=== PATIENT | male | born 1945 | race Caucasian/White ===

== ENCOUNTER 2018-02-28 10:08 | Emergency (ER) | payer MEDICARE ==
[2018-02-28] MEDS ORDERED: Sodium Chloride 0.9% 1000 ML 2,000 ML ONE (10:24)
[2018-02-28 10:26] VITALS: BP 112/83; O2SAT 96
[2018-02-28] MEDS ORDERED: BABY ASPIRIN 81 MG CHEW PO ONE (10:28)
[2018-02-28] MEDS ORDERED: MORPHINE SULFATE 2 MG INJ ONE (10:28)
[2018-02-28] MEDS ORDERED: BABY ASPIRIN 81 MG CHEW ONE (10:30)
[2018-02-28] MEDS ORDERED: Sodium Chloride 0.9% 1000 ML 1,000 ML IV SCH (10:30)
[2018-02-28] MEDS ORDERED: [UNRECOGNIZED DRUG - OTHER] IV ONE (10:30)
[2018-02-28] MEDS ORDERED: NTG IV ONE (10:30)
[2018-02-28] MEDS ORDERED: Effient 10 MG TABLET ONE (10:30)
[2018-02-28] MEDS ORDERED: Zofran 4 MG/2 ML VIAL ONE (10:40)
[2018-02-28 10:41] VITALS: PULSE 91
--- NOTE | 2018-02-28 10:41 | ERPHSYRPT ---
- History of Present Illness Time Seen by Provider: 02/28/18 10:15 Historian: patient Exam Limitations: clinical condition Physician History: PATIENT WITH A HISTORY OF CORONARY ARTERY DISEASE, HAD PREVIOUS CARDIAC CATH 3 YEARS AGO UNDER THE CARE OF DR MORA AND NOW COMPLAINS OF ACUTE ONSET OF INDIGESTION AND LOWER STERNAL PAIN WHICH RADIATES TO HIS BACK BETWEEN BOTH SHOULDER BLADES AND HAS BEEN CONSTANT OVER THE PAST HOUR. PATIENT COMPLAINS OF SLIGHT DIAPHORESIS BUT DENIES PALPITATIONS OR DYSPNEA. PATIENT RATES HIS PAIN A 8/10. Timing/Duration: today Activities at Onset: none Quality: other (INDIGESTION) Chest Pain Radiation: back Severity of Pain-Max: moderate Severity of Pain-Current: moderate Modifying Factors: Improves With: nothing Associated Symptoms: nausea, heartburn, diaphoresis Prior Chest Pain/Cardiac Workup: cardiac cath Nitro Today/Relief: provided by ED (INTRAVENOUS NITROGLYCERIN AT 3MCG/MIN) Aspirin Treatment Today: 81 mg x 2, provided at home (AND NITROGLYCERIN SUBLINGUAL 4 MG 2 IN THE EMERGENCY ROOM) Allergies/Adverse Reactions: No Known Drug Allergies Allergy (Unverified 02/28/18 10:34) Home Medications: Aspirin 81 gm Chew [Baby Aspirin 81 mg Chew] 81 mg DAILY 02/28/18 [History ] LORazepam [Lorazepam] 1 mg DAILY 02/28/18 [History] - Review of Systems Constitutional: No Fever, No Chills Eyes: No Symptoms Ears, Nose, & Throat: No Symptoms Respiratory: No Cough, No Dyspnea Cardiac: Chest Pain, No Edema, No Syncope Abdominal/Gastrointestinal: No Symptoms, No Abdominal Pain, No Nausea, No Vomiting, No Diarrhea Genitourinary Symptoms: No Symptoms, No Dysuria Musculoskeletal: No Symptoms, No Back Pain, No Neck Pain Skin: No Rash Neurological: No Dizziness, No Focal Weakness, No Sensory Changes Psychological: No Symptoms Endocrine: No Symptoms All Other Systems: Reviewed and Negative - Nursing Vital Signs Nursing Vital Signs: Initial Vital Signs Pulse Rate 91 H 02/28/18 10:09 Respiratory Rate 18 02/28/18 10:09 Blood Pressure 112/83 02/28/18 10:09 O2 Sat by Pulse Oximetry 96 02/28/18 10:09 Pain Scale Pain Intensity 10 - Physical Exam General Appearance: moderate distress, other (MILD DIAPHORESIS) Eye Exam: PERRL/EOMI, eyes nml inspection Ears, Nose, Throat Exam: normal ENT inspection, moist mucous membranes Neck Exam: normal inspection, non-tender, supple, full range of motion Respiratory Exam: normal breath sounds, lungs clear, No respiratory distress Cardiovascular Exam: regular rate/rhythm, normal heart sounds Gastrointestinal/Abdomen Exam: soft, normal bowel sounds, No tenderness, No mass Back Exam: normal inspection, No CVA tenderness, No vertebral tenderness Extremity Exam: normal inspection, normal range of motion Neurologic Exam: alert, oriented x 3, cooperative, normal mood/affect, sensation nml, No motor deficits Skin Exam: normal color, warm, dry SpO2 Interpretation: normal SpO2: 96 Oxygen Delivery: Nasal Cannula - Course EKG Interpreted by Me: RATE, Sinus Rhythm, ST Elev (ANTEROSEPTAL ELEVATION V2-V3 ) Ordered Tests: Active Orders 24 hr Category Date Time Status EKG-ER Only STAT Care 02/28/18 10:28 Active IV Insertion STAT Care 02/28/18 10:28 Active Oxygen-ED Only NASAL CANNULA 2 lpm Care 02/28/18 10:28 Active CBC W DIFF Stat Lab 02/28/18 10:35 Completed CMP Stat Lab 02/28/18 10:35 Received D-DIMER QUANTITATION Stat Lab 02/28/18 10:35 Completed NT PRO BNP Stat Lab 02/28/18 10:35 Received PROTIME WITH INR Stat Lab 02/28/18 10:35 Completed TROPONIN Q3H Lab 02/28/18 10:35 Received TROPONIN Q3H Lab 02/28/18 13:30 Ordered TROPONIN Q3H Lab 02/28/18 16:30 Ordered TROPONIN Q3H Lab 02/28/18 19:30 Ordered TROPONIN Q3H Lab 02/28/18 22:30 Ordered Medication Summary Generic Name Dose Route Start Last Admin Trade Name Freq PRN Reason Stop Dose Admin Sodium Chloride 1,000 mls @ 200 mls/hr 02/28/18 10:30 02/28/18 10:42 Sodium Chloride 0.9% 1000 Ml IV 03/30/18 10:29 200 mls/hr .Q5H KATHI Administration Discontinued Medications Generic Name Dose Route Start Last Admin Trade Name Freq PRN Reason Stop Dose Admin Aspirin 162 mg 02/28/18 10:28 02/28/18 10:41 Baby Aspirin 81 Mg Chew PO 02/28/18 10:29 162 mg STAT ONE Administration Aspirin 162 mg 02/28/18 10:30 Baby Aspirin 81 Mg Chew .ROUTE 02/28/18 10:31 .STK-MED ONE Sodium Chloride Confirm 02/28/18 10:24 Sodium Chloride 0.9% 1000 Ml Administered 02/28/18 10:25 Dose 2,000 mls @ ud .ROUTE .STK-MED ONE Morphine Sulfate Confirm 02/28/18 10:28 Morphine Sulfate 2 Mg Inj Administered 02/28/18 10:29 Dose 2 mg .ROUTE .STK-MED ONE Nitroglycerin/Dextrose 50,000 mcg 02/28/18 10:30 Ntg 0.2mg/Ml In D5w Glass IV 02/28/18 10:31 .STK-MED ONE Ondansetron HCl Confirm 02/28/18 10:40 Zofran 4 Mg/2 Ml Vial Administered 02/28/18 10:41 Dose 4 mg .ROUTE .STK-MED ONE Ondansetron HCl 4 mg 02/28/18 10:43 02/28/18 10:44 Zofran 4 Mg/2 Ml Vial IV 02/28/18 10:44 4 mg STAT ONE Administration Prasugrel 60 mg 02/28/18 10:30 Effient 10 Mg Tablet .ROUTE 02/28/18 10:31 .STK-MED ONE Lab/Rad Data: Laboratory Result Diagrams 02/28/18 10:35 Laboratory Results 02/28/18 02/28/18 Range/Units 10:35 10:35 WBC 11.9 H (4.0-10.5) K/mm3 RBC 5.28 (4.1-5.6) M/mm3 Hgb 17.2 (12.5-18.0) gm/dl Hct 51.8 H (42-50) % MCV 98.1 (78-100) fl MCH 32.6 H (26-32) pg MCHC 33.2 (32-36) g/dl RDW 13.5 (11.5-14.0) % Plt Count 364 (150-450) K/mm3 MPV 9.3 (6-9.5) fl Gran % 60.8 (36.0-66.0) % Eos # (Auto) 0.69 H (0-0.5) Absolute Lymphs (auto) 3.00 (1.0-4.6) Absolute Monos (auto) 0.94 (0.0-1.3) Lymphocytes % 25.2 (24.0-44.0) % Monocytes % 7.9 (0.0-12.0) % Eosinophils % 5.8 H (0.00-5.0) % Basophils % 0.3 (0.0-0.4) % Absolute Granulocytes 7.24 H (1.4-6.9) Basophils # 0.04 (0-0.4) PT 11.2 (8.83-12.87) SECONDS INR 0.96 (0.8-3.0) D-Dimer 862 H* (215-500) ng/mL - Progress Progress: re-examined Progress Note: PATIEN ADMINISTERED BABY ASPIRIN 162MG, SBP 113, BEGAN IV NITROGLYCERIN INFUSION 3MCG/MIN, MORPHINE 2MG IV, EFFIENT 60MG ORALLY 02/28/18 10:44 02/28/18 12:[address].: Other (DISCUSSED WITH DR ALDRICH AT 1020 ACCEPTS TRANSFER TO [facility] INTO [facility], [facility]IA [facility]) - Departure Time of Disposition: 10:40 Departure Disposition: Transfer Clinical Impression: ACUTE ANTEROSEPTAL STEMI Condition: Stable Critical Care Time: Yes Critical Care Time(excluding separately billable procedures): ___ minutes (30) Referrals: MIMI FINN [Primary Care Provider] -
[2018-02-28] MEDS ORDERED: Zofran 4 MG/2 ML VIAL IV ONE (10:43)
[2018-02-28 10:48] LABS: BASOPHIL % 0.3 % (0.0-0.4); Basophil (Absolute #) 0.04 (0-0.4); Eosinophil % 5.8 % (0.00-5.0); Eosinophil (Absolute #) 0.69 (0-0.5); Granulocyte Absolute (ANC) 7.24 (1.4-6.9); Granulocytes % 60.8 % (36.0-66.0); Hematocrit 51.8 % (42-50); Hemoglobin 17.2 gm/dl (12.5-18.0); Lymphocytes % 25.2 % (24.0-44.0); Mean Cell Volume 98.1 fl (78-100); Mean Corpuscular Hemoglobin 32.6 pg (26-32); Mean Corpuscular Hgb Concent. 33.2 g/dl (32-36); Mean Platelet Volume 9.3 fl (6-9.5); Monocyte (Absolute #) 0.94 (0.0-1.3); Monocytes % 7.9 % (0.0-12.0); Platelet Count 364 K/mm3 (150-450); Red Blood Count 5.28 M/mm3 (4.1-5.6); Red Cell Distribution Width 13.5 % (11.5-14.0); White Blood Count 11.9 K/mm3 (4.0-10.5)
[2018-02-28 10:49] LABS: INR 0.96 (0.8-3.0)
[2018-02-28 12:45] LABS: ALBUMIN 4.2 g/dL (3.5-5.0); ALKALINE PHOSPHATASE 140 U/L (38-126); ANION GAP 13.3 MEQ/L (5-15); BLOOD UREA NITROGEN 11 mg/dL (9-20); CHLORIDE 106 mmol/L (98-107); Carbon Dioxide 26 mmol/L (22-30); Glucose 144 mg/dL (74-106); NT PRO BNP 176 pg/mL (0-900); Potassium 4.1 mmol/L (3.5-5.1); SGOT/AST 28 U/L (17-59); SGPT/ALT 14 U/L (0-50); SODIUM 141 mmol/L (137-145); Total Protein 7.2 g/dL (6.3-8.2)
== END 2018-02-28 10:40 | disposition short-term general hospital (02) ==
LOC: ED 10:08
DX: I21.09 ST elevation (STEMI) myocardial infarction involving other coronary artery of anterior wall (principal); Z79.82 Long term (current) use of aspirin; Z79.899 Other long term (current) drug therapy
CPT/HCPCS: 36415; 80053; 83880; 84484; 85025; 85379; 85610; 93005; 96360; 96365; 96374; 96375; 99285; 99291; J2270; J2405; A9270-GY

== ENCOUNTER 2018-03-08 03:53 | Emergency (ER) | payer MEDICARE ==
--- NOTE | 2018-03-08 04:04 | ERPHSYRPT ---
- History of Present Illness Time Seen by Provider: 03/08/18 03:57 Historian: family, EMS Physician History: PATIENT WITH A HISTORY OF ACUTE ANTEROSEPTAL MYOCARDIAL INFARCTION ON DAte 02/28 AT WHICH TIME PATIENT WAS TRANSFERRED TO [facility] FOR EMERGENCY CARDIAC CATHERIZATION. EMS CALLED TO THE PATIENTS HOME WITH COMPLAINS OF CHEST PAIN AND SEVERE DYSPNEA. UPON ARRIVAL OF EMS THE PATIENTDEVELOPED AGONAL BREATH WHICH TIME THE PATIENT WAS INTUBATED. Timing/Duration: today Quality: sharpness Location: substernal Associated Symptoms: shortness of breath (SEVERE DYSPNEa) Prior Chest Pain/Cardiac Workup: cardiac cath, heart attack, recent hospitalization (MYOCARDIAL INFARCTION 02/28/2018) Nitro Today/Relief: no nitro taken today Aspirin Treatment Today: 81 mg x 1, provided at home Allergies/Adverse Reactions: No Known Drug Allergies Allergy (Unverified 02/28/18 10:34) Home Medications: Aspirin 81 gm Chew [Baby Aspirin 81 mg Chew] 81 mg DAILY 02/28/18 [History ] LORazepam [Lorazepam] 1 mg DAILY 02/28/18 [History] Hx Tetanus, Diphtheria Vaccination/Date Given: Yes Hx Influenza Vaccination/Date Given: Yes Hx Pneumococcal Vaccination/Date Given: No - Review of Systems Respiratory: Dyspnea Cardiac: Chest Pain (HISTORY GIVEN PER EMS) - Past Medical History Pertinent Past Medical History: (unknown) Other Medical History: unable to obtain d/t emergent - Past Surgical History Other Surgical History: unable to obtain d/t emergent - Social History Smoking Status: Unknown if ever smoked - Physical Exam General Appearance: other (PATIENT INTUBATED PRIOR TO EMERGENCY ARRIVAL, MANUAL BREATH SOUNDS WITH RALES BILAT,) Eye Exam: PERRL/EOMI Ears, Nose, Throat Exam: normal ENT inspection Neck Exam: JVD (MARKED JVD) Respiratory Exam: crackles/rales (DIFFUSE ) Cardiovascular Exam: regular rate/rhythm, tachycardia Gastrointestinal/Abdomen Exam: soft, normal bowel sounds Back Exam: normal inspection Extremity Exam: pedal edema (1+ PRETIBIAL EDEMA) Neurologic Exam: other (UNRESPONSIVE ) SpO2: 97 Oxygen Delivery: Ventilator - Course EKG Interpreted by Me: RATE, Sinus Rhythm, Sinus Tach, NORMAL AXIS - Radiology Exams Chest X-ray Interpretation: Interpreted by me (FLAT DIAPHRAMS, DIFFUSE PULMONARY EDEMA WITH SUPERIMPOSED INFILTRATES, ENDOTRACHEAL TUBE 1 CM PROXIMAL TO LIBERTY) Ordered Tests: Active Orders 24 hr Category Date Time Status Cement Car Dumper STAT Care 03/08/18 04:02 Active EKG-ER Only STAT Care 03/08/18 04:01 Active IV Insertion STAT Care 03/08/18 04:01 Active Pulse Oximetry (ED) STAT Care 03/08/18 04:01 Active CHEST 1 VIEW (PORTABLE) Stat Exams 03/08/18 03:55 Taken ARTERIAL BLOOD GASES Stat Lab 03/08/18 04:04 Ordered BLOOD CULTURE Stat Lab 03/08/18 04:28 Ordered CBC W DIFF Stat Lab 03/08/18 03:55 Received CMP Stat Lab 03/08/18 03:55 Received Lactic Acid Stat Lab 03/08/18 04:04 Ordered Manual Differential NC Stat Lab 03/08/18 03:55 Completed NT PRO BNP Stat Lab 03/08/18 03:55 Received PROTIME WITH INR Stat Lab 03/08/18 03:55 Received PTT Stat Lab 03/08/18 03:55 Received TROPONIN Q3H Lab 03/08/18 04:15 Ordered TROPONIN Q3H Lab 03/08/18 07:15 Ordered TROPONIN Q3H Lab 03/08/18 10:15 Ordered TROPONIN Q3H Lab 03/08/18 13:15 Ordered TROPONIN Q3H Lab 03/08/18 16:15 Ordered Medication Summary Generic Name Dose Route Start Last Admin Trade Name Freq PRN Reason Stop Dose Admin Sodium Chloride 1,000 mls @ 50 mls/hr 03/08/18 04:15 Sodium Chloride 0.9% 1000 Ml IV 04/07/18 04:14 .Q20H KATHI Nitroglycerin/Dextrose 250 mls @ 0.9 mls/hr 03/08/18 04:29 Ntg 0.2mg/Ml In D5w Glass IV 04/07/18 04:28 .Q24H PRN CHEST PAIN Protocol 3 MCG/MIN Ceftriaxone Sodium/Dextrose 1 g in 50 mls @ 100 mls/hr 03/08/18 04:30 Rocephin 1 Gm-D5w 50 Ml Bag IV 03/08/18 04:59 STAT STA Midazolam HCl 50 mg/ Sodium 250 mls @ 40 mls/hr 03/08/18 04:32 Chloride IV 04/07/18 04:31 .Q6H15M PRN SEDATION Protocol 8 MG/HR Discontinued Medications Generic Name Dose Route Start Last Admin Trade Name Freq PRN Reason Stop Dose Admin Furosemide 60 mg 03/08/18 04:23 Furosemide 100mg/10 Ml Vial IV 03/08/18 04:24 STAT ONE Furosemide Confirm 03/08/18 04:23 Furosemide 100mg/10 Ml Vial Administered 03/08/18 04:24 Dose 100 mg .ROUTE .STK-MED ONE Sodium Chloride Confirm 03/08/18 04:09 Sodium Chloride 0.9% 250 Ml Administered 03/08/18 04:10 Dose 250 mls @ ud IV .STK-MED ONE Midazolam HCl Confirm 03/08/18 04:09 Versed 50 Mg/ 10 Ml Mdv Administered 03/08/18 04:10 Dose 50 mg .ROUTE .STK-MED ONE Lab/Rad Data: Laboratory Result Diagrams 03/08/18 03:55 Laboratory Results 03/08/18 Range/Units 03:55 WBC 15.8 H (4.0-10.5) K/mm3 RBC 4.52 (4.1-5.6) M/mm3 Hgb 14.7 (12.5-18.0) gm/dl Hct 44.2 (42-50) % MCV 97.8 (78-100) fl MCH 32.5 H (26-32) pg MCHC 33.3 (32-36) g/dl RDW 12.9 (11.5-14.0) % Plt Count 477 H (150-450) K/mm3 MPV 10.1 H (6-9.5) fl Gran % 67.5 H (36.0-66.0) % Eos # (Auto) 0.50 (0-0.5) Absolute Lymphs (auto) 2.64 (1.0-4.6) Absolute Monos (auto) 1.96 H (0.0-1.3) Lymphocytes % 16.7 L (24.0-44.0) % Monocytes % 12.4 H (0.0-12.0) % Eosinophils % 3.2 (0.00-5.0) % Basophils % 0.2 (0.0-0.4) % Absolute Granulocytes 10.71 H (1.4-6.9) Basophils # 0.03 (0-0.4) - Progress Progress: re-examined Progress Note: 03/08/18 04:42 IV NORMAL SALINE AT 10ML, BILATERAL 16GA ANGIOCATH, VERSED INFUSION 8MG/HR, LASIX 60MG IV, NITRO GLYCERIN 3MCG/MIN, AND AFTER 2 SETS BLOOD CULTURES ROCEPHIN 1 GM IVPB. ALL LABS REVIEWED BMP 7230, CBC WITH WBC 15,[address].: Other (DISCUSSED WITH DR GOMEZ AT 0430 ACCEPTS TRANSFER TO [facility] VIA [facility]) - Departure Time of Disposition: 04:56 Departure Disposition: Transfer Clinical Impression: ACUTE RESPIRATORY FAILURE, ACUTE CONGESTIVE HEART FAILURE, PNEUMONIA, ACUTE CHEST PAIN Condition: Critical Critical Care Time: Yes Critical Care Time(excluding separately billable procedures): ___ minutes (50) Referrals: MIMI FINN [Primary Care Provider] -
[2018-03-08] MEDS ORDERED: Sodium Chloride 0.9% 1000 ML 1,000 ML ONE (04:06)
[2018-03-08] MEDS ORDERED: Versed 50 MG/ 10 Ml MDV ONE (04:09)
[2018-03-08] MEDS ORDERED: Sodium Chloride 0.9% 250 ML 250 ML IV ONE (04:09)
[2018-03-08 04:10] LABS: BASOPHIL % 0.2 % (0.0-0.4); Basophil (Absolute #) 0.03 (0-0.4); Eosinophil % 3.2 % (0.00-5.0); Granulocyte Absolute (ANC) 10.71 (1.4-6.9); Granulocytes % 67.5 % (36.0-66.0); Hematocrit 44.2 % (42-50); Hemoglobin 14.7 gm/dl (12.5-18.0); Lymphocyte (Absolute #) 2.64 (1.0-4.6); Lymphocytes % 16.7 % (24.0-44.0); Mean Cell Volume 97.8 fl (78-100); Mean Corpuscular Hemoglobin 32.5 pg (26-32); Mean Corpuscular Hgb Concent. 33.3 g/dl (32-36); Mean Platelet Volume 10.1 fl (6-9.5); Monocyte (Absolute #) 1.96 (0.0-1.3); Monocytes % 12.4 % (0.0-12.0); Platelet Count 477 K/mm3 (150-450); Red Blood Count 4.52 M/mm3 (4.1-5.6); Red Cell Distribution Width 12.9 % (11.5-14.0); White Blood Count 15.8 K/mm3 (4.0-10.5)
[2018-03-08] MEDS ORDERED: Sodium Chloride 0.9% 1000 ML 1,000 ML IV SCH (04:15)
[2018-03-08 04:23] LABS: INR 1.25 (0.8-3.0)
[2018-03-08] MEDS ORDERED: Furosemide 100mg/10 ml Vial ONE (04:23)
[2018-03-08] MEDS ORDERED: Furosemide 100mg/10 ml Vial IV ONE (04:23)
[2018-03-08 04:26] LABS: PTT 25.1 SECONDS (24.1-36.1)
[2018-03-08] MEDS ORDERED: Ntg 0.2MG/Ml in D5W GLASS*** 250 ML IV PRN (04:29)
[2018-03-08] MEDS ORDERED: ROCEPHIN 1 Gm-D5w 50 ml Bag** 1 G/50 ML IVPB IV STA (04:30)
[2018-03-08 04:31] LABS: A-aADO2 530; ABG HEMOGLOBIN 15.4; ABG POTASSIUM 3.8 (3.5-5.1); ARTERIAL BLD GAS O2 SATURATION 96.7 % (95-100); ARTERIAL BLD GAS TIDAL VOLUME 500 cc; ARTERIAL BLOOD GAS BASE EXCESS -7.9 (-2.0-2.0); ARTERIAL BLOOD GAS FIO2 100 %; ARTERIAL BLOOD GAS PEEP 5 cmH2O; ARTERIAL BLOOD GAS PO2 94 mmHg (75-100); ARTERIAL BLOOD GAS VENT MODE A/C; HCO3- 23.1 (22-28); HGB O2 SAT 94.2 g/dF (94-100); Methhemoglobin 0.6 % (1.4-1.5); paO2 pAO1 0.15
[2018-03-08] MEDS ORDERED: Ntg 0.2MG/Ml in D5W GLASS*** 250 ML IV ONE (04:31)
[2018-03-08 04:32] LABS: ARTERIAL BLOOD GAS PCO2 71 mmHg (35-45); ARTERIAL BLOOD GAS pH 7.12 (7.35-7.45)
[2018-03-08] MEDS ORDERED: Versed 50 MG/ 10 Ml MDV*** 50 MG in Sodium Chloride 0.9% 250 ML 240 ML IV PRN (04:32)
[2018-03-08 04:33] LABS: ABG SITE LEFT FEMORAL
[2018-03-08 04:34] LABS: ALBUMIN 3.5 g/dL (3.5-5.0); ALKALINE PHOSPHATASE 118 U/L (38-126); ANION GAP 17.9 MEQ/L (5-15); BLOOD UREA NITROGEN 17 mg/dL (9-20); CHLORIDE 101 mmol/L (98-107); Calcium 7.8 mg/dL (8.4-10.2); Carbon Dioxide 22 mmol/L (22-30); Creatinine 1 1.09 mg/dL (0.66-1.25); Glucose 244 mg/dL (74-106); NT PRO BNP 7230 pg/mL (0-900); Potassium 4.1 mmol/L (3.5-5.1); SGOT/AST 57 U/L (17-59); SGPT/ALT 57 U/L (0-50); SODIUM 137 mmol/L (137-145); Total Protein 6.6 g/dL (6.3-8.2)
[2018-03-08 04:34] LABS: Lactic Acid 2.7 (0.4-2.0)
[2018-03-08 04:41] VITALS: BP 129/92; PULSE 114
[2018-03-08 04:44] VITALS: O2SAT 97
[2018-03-08] MEDS ORDERED: ROCEPHIN 1 Gm-D5w 50 ml Bag** 1 G/50 ML IVPB IV ONE (04:53)
[2018-03-08 05:14] LABS: BAND 5 % (0.0-2.0); Eosinophil 2 % (0.00-3.0); Lymphocytes 19 % (24-44); Monocyte 13 % (0.0-12.0); Neutrophils 61 % (36.-66.); Total Cells Counted 100
[2018-03-08 05:15] LABS: ANISOCYTOSIS 1+; Burr Cells RARE; Platelet Estimate INCREASED (NORMAL); Poikilocytosis 1+
--- NOTE | 2018-03-08 08:11 | XRAY ---
Indication: Cardiac arrest. Comparison: None Portable chest demonstrates endotracheal tube tip 1.5 cm above the ria. Diffuse bilateral interstitial alveolar opacities without consolidation/large effusion. Heart is not enlarged. Bony thorax intact.
== END 2018-03-08 05:01 | disposition short-term general hospital (02) ==
LOC: ED 03:53
DX: J96.00 Acute respiratory failure, unspecified whether with hypoxia or hypercapnia (principal); I50.9 Heart failure, unspecified; J18.9 Pneumonia, unspecified organism; R07.9 Chest pain, unspecified; Z79.82 Long term (current) use of aspirin; Z79.899 Other long term (current) drug therapy
CPT/HCPCS: 36000; 36415; 36600; 51702; 71045; 80053; 82375; 82803; 83605; 83880; 84484; 85025; 85610; 85730; 87040; 93005; 93041; 94002; 94799; 96360; 96365; 96367; 96374; 99285; 99291; J0696; J1940; J2250

== ENCOUNTER 2018-04-22 04:57 | Emergency (ER) | payer MEDICARE ==
[2018-04-22] MEDS ORDERED: solu-MEDROL 125 MG IV ONE (04:58)
--- NOTE | 2018-04-22 04:58 | ERPHSYRPT ---
- History of Present Illness Time Seen by Provider: 04/22/18 04:58 Source: patient Exam Limitations: clinical condition Physician History: 72 y/o white male with h/o copd and asthma presents in mod distress secondary to soa. pt unable to sleep last few nights. soa worsening. pts oxygen sats 68 % on room air. pt does not use oxygen at home. pt states no cp but hurts all over. 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 pt pcp is denice. 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 uriostegui from [facility]. pt is wearing an external defibrillator vest. Timing/Duration: day(s) (3), worse (this am) Activities at Onset: none Severity of Dyspnea-Max: moderate Severity of Dyspnea-Current: moderate Possible Cause: occasional episodes Modifying Factors: Improves With: coughing Associated Symptoms: constant, anxiety, cough, No chest pain/discomfort, No loss of appetite Allergies/Adverse Reactions: No Known Drug Allergies Allergy (Unverified 02/28/18 10:34) Home Medications: Aspirin 81 gm Chew [Baby Aspirin 81 mg Chew] 81 mg PO DAILY 02/28/18 [ History] Atorvastatin Calcium [Lipitor] 80 mg PO DAILY 04/22/18 [History] Carvedilol 3.125 mg [Coreg 3.125 MG] 3.125 mg PO BID 04/22/18 [History] Famotidine 40 mg PO DAILY 04/22/18 [History] Furosemide 40 mg PO DAILY 04/22/18 [History] Ticagrelor [Brilinta] 90 mg PO BID 04/22/18 [History] Trazodone HCl 150 mg PO DAILY 04/22/18 [History] Hx Tetanus, Diphtheria Vaccination/Date Given: Yes Hx Influenza Vaccination/Date Given: Yes Hx Pneumococcal Vaccination/Date Given: No - Review of Systems Constitutional: No Symptoms Eyes: No Symptoms Ears, Nose, & Throat: No Symptoms Respiratory: Cough, Dyspnea Cardiac: No Symptoms Abdominal/Gastrointestinal: No Symptoms, No Abdominal Pain, No Nausea, No Vomiting, No Diarrhea Genitourinary Symptoms: No Symptoms, No Dysuria, No Frequency, No Hematuria Musculoskeletal: No Symptoms Skin: No Symptoms Neurological: No Symptoms Psychological: Anxiety Endocrine: No Symptoms Hematologic/Lymphatic: No Symptoms Immunological/Allergic: No Symptoms All Other Systems: Reviewed and Negative - Past Medical History Pertinent Past Medical History: Yes (unknown) Neurological History: No Pertinent History ENT History: No Pertinent History Respiratory History: Asthma, COPD Endocrine Medical History: No Pertinent History Musculoskeletal History: No Pertinent History GI Medical History: No Pertinent History History: No Pertinent History Psycho-Social History: No Pertinent History Male Reproductive Disorders: No Pertinent History Other Medical History: unable to obtain d/t emergent - Past Surgical History Neuro Surgical History: No Pertinent History Cardiac: No Pertinent History Respiratory: No Pertinent History Gastrointestinal: No Pertinent History Genitourinary: No Pertinent History Musculoskeletal: No Pertinent History Male Surgical History: No Pertinent History Other Surgical History: unable to obtain d/t emergent - Social History Smoking Status: Unknown if ever smoked Patient Lives Alone: No - Nursing Vital Signs Nursing Vital Signs: Initial Vital Signs O2 Sat by Pulse Oximetry 92 L 04/22/18 04:58 - Physical Exam General Appearance: moderate distress, alert, anxiety, thin Eye Exam: PERRL/EOMI, eyes nml inspection Ears, Nose, Throat Exam: hearing grossly normal Neck Exam: normal inspection, non-tender, supple, full range of motion Respiratory Exam: respiratory distress, diminished breath sounds, accessory muscle use, No chest tenderness, No rhonchi, No wheezing, No stridor Cardiovascular/Chest Exam: tachycardia Abdominal/Gastrointestinal Exam: soft, normal bowel sounds, tenderness, No distention, No guarding, No rebound Rectal Exam: not done Extremity Exam: non-tender, normal range of motion, normal inspection Neurologic Exam: alert, oriented x 3, cooperative, supply manager II-XII nml as tested Skin Exam: normal color, warm, dry Lymphatic Exam: No adenopathy SpO2 Interpretation: hypoxic, ABG ordered, O2 applied O2 Delivery: Non-rebreather - Course Nursing assessment & vital signs reviewed: Yes EKG Interpreted by Me: RATE (96), Sinus Rhythm, Left Benjamin Deviation, NORMAL INTERVALS, NORMAL QRS, Other (improved over comparison ekg dated 03/08/19) Ordered Tests: Active Orders 24 hr Category Date Time Status Inventory Analyst STAT Care 04/22/18 04:59 Active EKG-ER Only STAT Care 04/22/18 04:58 Active IV Insertion STAT Care 04/22/18 04:58 Active Oxygen-ED Only NON-REBREATHER 100% Care 04/22/18 04:58 Active Pulse Oximetry (ED) STAT Care 04/22/18 04:58 Active CHEST 1 VIEW (PORTABLE) Stat Exams 04/22/18 04:59 Taken CHEST WITH CONTRAST [CT] Stat Exams 04/22/18 06:45 Ordered ABG [ARTERIAL BLOOD GASES] Stat Lab 04/22/18 06:46 Completed ARTERIAL BLOOD GASES Stat Lab 04/22/18 05:15 Results BLOOD CULTURE Stat Lab 04/22/18 06:47 Ordered CBC W DIFF Stat Lab 04/22/18 05:15 Completed CMP Stat Lab 04/22/18 05:15 Completed D-DIMER QUANTITATION Stat Lab 04/22/18 05:15 Completed Lactic Acid Stat Lab 04/22/18 05:15 Results Manual Differential NC Stat Lab 04/22/18 05:15 Completed NT PRO BNP Stat Lab 04/22/18 05:15 Completed PROTIME WITH INR Stat Lab 04/22/18 05:15 Completed TROPONIN Q3H Lab 04/22/18 05:15 Completed TROPONIN Q3H Lab 04/22/18 08:00 Ordered TROPONIN Q3H Lab 04/22/18 11:00 Ordered TROPONIN Q3H Lab 04/22/18 14:00 Ordered TROPONIN Q3H Lab 04/22/18 17:00 Ordered BiPap/CPAP STAT RT 04/22/18 06:09 Active Medication Summary Discontinued Medications Generic Name Dose Route Start Last Admin Trade Name Freq PRN Reason Stop Dose Admin Furosemide 40 mg 04/22/18 06:00 04/22/18 06:21 Lasix 40 Mg/4 Ml IV 04/22/18 06:01 40 mg STAT ONE Administration Furosemide Confirm 04/22/18 06:20 Lasix 40 Mg/4 Ml Administered 04/22/18 06:21 Dose 40 mg .ROUTE .STK-MED ONE Lorazepam 0.5 mg 04/22/18 05:38 04/22/18 05:54 Ativan 2 Mg/1 Ml Vial IV 04/22/18 05:39 0.5 mg STAT ONE Administration Lorazepam Confirm 04/22/18 05:53 Ativan 2 Mg/1 Ml Vial Administered 04/22/18 05:54 Dose 2 mg .ROUTE .STK-MED ONE Methylprednisolone Sodium Succinate 125 mg 04/22/18 04:58 04/22/18 05:24 Solu-Medrol 125 Mg IV 04/22/18 04:59 125 mg STAT ONE Administration Methylprednisolone Sodium Succinate Confirm 04/22/18 05:22 Solu-Medrol 125 Mg Administered 04/22/18 05:23 Dose 125 mg .ROUTE .STK-MED ONE Lab/Rad Data: Laboratory Result Diagrams 04/22/18 05:15 04/22/18 05:15 Laboratory Results 04/22/18 04/22/18 04/22/18 Range/Units 06:46 05:15 05:15 WBC (4.0-10.5) K/mm3 RBC (4.1-5.6) M/mm3 Hgb (12.5-18.0) gm/dl Hct (42-50) % MCV (78-100) fl MCH (26-32) pg MCHC (32-36) g/dl RDW (11.5-14.0) % Plt Count (150-450) K/mm3 MPV (6-9.5) fl Segmented Neutrophils (36.-66.) % Band Neutrophils (0.0-2.0) % Lymphocytes (Manual) (24-44) % Monocytes (Manual) (0.0-12.0) % Eosinophils (Manual) (0.00-3.0) % Platelet Estimate (NORMAL) RBC Morphology Macrocytosis PT (8.83-12.87) SECONDS INR (0.8-3.0) D-Dimer (215-500) ng/mL Puncture Site LEFT RADIAL pCO2 40 (35-45) mmHg pO2 104 H (75-100) mmHg Base Excess 1.3 (-2.0-2.0) O2 Saturation 96.5 (94-100) g/dF ABG pH 7.42 (7.35-7.45) ABG HCO3 25.9 (22-28) ABG O2 Sat (Measured) 98.9 (95-100) % Bong Test YES A-a Gradient 452 a/A Ratio 0.19 Hemoglobin 12.2 Carboxyhemoglobin 1.5 (0.0-6.9) % THgb Methemoglobin 0.9 L (1.4-1.5) % Potassium 3.1 L (3.5-5.1) Temperature 37.0 C POC O2 Flow Rate 85 % Vent Mode BiPAP PEEP 6 cmH2O Sodium (137-145) mmol/L Chloride (98-107) mmol/L Carbon Dioxide (22-30) mmol/L Anion Gap (5-15) MEQ/L BUN (9-20) mg/dL Creatinine (0.66-1.25) mg/dL Estimated GFR ML/MIN Glucose (74-106) mg/dL Lactic Acid (0.4-2.0) Calcium (8.4-10.2) mg/dL Total Bilirubin (0.2-1.3) mg/dL AST (17-59) U/L ALT (0-50) U/L Alkaline Phosphatase (38-126) U/L Troponin I 0.100 H* (0.000-0.034) ng/mL NT-Pro-B Natriuret Pep (0-900) pg/mL Serum Total Protein (6.3-8.2) g/dL Albumin (3.5-5.0) g/dL Influenza Type A Ag NEGATIVE (NEGATIVE) Influenza Type B Ag NEGATIVE (NEGATIVE) RSV (PCR) NEGATIVE (Negative) 04/22/18 04/22/18 04/22/18 Range/Units 05:15 05:15 05:15 WBC (4.0-10.5) K/mm3 RBC (4.1-5.6) M/mm3 Hgb (12.5-18.0) gm/dl Hct (42-50) % MCV (78-100) fl MCH (26-32) pg MCHC (32-36) g/dl RDW (11.5-14.0) % Plt Count (150-450) K/mm3 MPV (6-9.5) fl Segmented Neutrophils (36.-66.) % Band Neutrophils (0.0-2.0) % Lymphocytes (Manual) (24-44) % Monocytes (Manual) (0.0-12.0) % Eosinophils (Manual) (0.00-3.0) % Platelet Estimate (NORMAL) RBC Morphology Macrocytosis PT 13.4 H (8.83-12.87) SECONDS INR 1.15 (0.8-3.0) D-Dimer 1229 H* (215-500) ng/mL Puncture Site RIGHT RADIAL pCO2 72 H* (35-45) mmHg pO2 103 H (75-100) mmHg Base Excess -6.4 L (-2.0-2.0) O2 Saturation 95.8 (94-100) g/dF ABG pH 7.13 L* (7.35-7.45) ABG HCO3 24.0 (22-28) ABG O2 Sat (Measured) 98.2 (95-100) % Bong Test YES A-a Gradient 520 a/A Ratio 0.17 Hemoglobin 12.5 Carboxyhemoglobin 1.8 (0.0-6.9) % THgb Methemoglobin 0.6 L (1.4-1.5) % Potassium 3.9 3.7 (3.5-5.1) Temperature 37.0 C POC O2 Flow Rate 100 % Vent Mode BiPAP PEEP 6 cmH2O Sodium 138 (137-145) mmol/L Chloride 100 (98-107) mmol/L Carbon Dioxide 25 (22-30) mmol/L Anion Gap 16.8 H (5-15) MEQ/L BUN 14 (9-20) mg/dL Creatinine 1.65 H (0.66-1.25) mg/dL Estimated GFR 43.6 ML/MIN Glucose 237 H (74-106) mg/dL Lactic Acid 3.7 H (0.4-2.0) Calcium 8.5 (8.4-10.2) mg/dL Total Bilirubin 1.20 (0.2-1.3) mg/dL AST 41 (17-59) U/L ALT 30 (0-50) U/L Alkaline Phosphatase 166 H (38-126) U/L Troponin I (0.000-0.034) ng/mL NT-Pro-B Natriuret Pep 6930 H (0-900) pg/mL Serum Total Protein 7.1 (6.3-8.2) g/dL Albumin 4.0 (3.5-5.0) g/dL Influenza Type A Ag (NEGATIVE) Influenza Type B Ag (NEGATIVE) RSV (PCR) (Negative) 04/22/18 Range/Units 05:15 WBC 15.4 H (4.0-10.5) K/mm3 RBC 3.96 L (4.1-5.6) M/mm3 Hgb 12.8 (12.5-18.0) gm/dl Hct 40.1 L (42-50) % MCV 101.3 H (78-100) fl MCH 32.3 H (26-32) pg MCHC 31.9 L (32-36) g/dl RDW 14.5 H (11.5-14.0) % Plt Count 465 H (150-450) K/mm3 MPV 9.7 H (6-9.5) fl Segmented Neutrophils 57 (36.-66.) % Band Neutrophils 2 (0.0-2.0) % Lymphocytes (Manual) 33 (24-44) % Monocytes (Manual) 6 (0.0-12.0) % Eosinophils (Manual) 2 (0.00-3.0) % Platelet Estimate NORMAL (NORMAL) RBC Morphology ABNORMAL Macrocytosis 1+ PT (8.83-12.87) SECONDS INR (0.8-3.0) D-Dimer (215-500) ng/mL Puncture Site pCO2 (35-45) mmHg pO2 (75-100) mmHg Base Excess (-2.0-2.0) O2 Saturation (94-100) g/dF ABG pH (7.35-7.45) ABG HCO3 (22-28) ABG O2 Sat (Measured) (95-100) % Bong Test A-a Gradient a/A Ratio Hemoglobin Carboxyhemoglobin (0.0-6.9) % THgb Methemoglobin (1.4-1.5) % Potassium (3.5-5.1) Temperature C POC O2 Flow Rate % Vent Mode PEEP cmH2O Sodium (137-145) mmol/L Chloride (98-107) mmol/L Carbon Dioxide (22-30) mmol/L Anion Gap (5-15) MEQ/L BUN (9-20) mg/dL Creatinine (0.66-1.25) mg/dL Estimated GFR ML/MIN Glucose (74-106) mg/dL Lactic Acid (0.4-2.0) Calcium (8.4-10.2) mg/dL Total Bilirubin (0.2-1.3) mg/dL AST (17-59) U/L ALT (0-50) U/L Alkaline Phosphatase (38-126) U/L Troponin I (0.000-0.034) ng/mL NT-Pro-B Natriuret Pep (0-900) pg/mL Serum Total Protein (6.3-8.2) g/dL Albumin (3.5-5.0) g/dL Influenza Type A Ag (NEGATIVE) Influenza Type B Ag (NEGATIVE) RSV (PCR) (Negative) - Progress Progress: improved, re-examined Air Movement: good Progress Note: 04/22/18 06:30 rn eri spoke with son. pt also has h/o chf. pt recently had an mi, pneumonia and sepsis. was in [facility] in [place] end of march 04 to beginning of apr 05. 04/22/18 06:34 pt initial ekg not diagnostic pt anxious, shaking and moving around. 04/22/18 06:36 pt cxr- bilat infiltrates vs fluid or combination 04/22/18 06:53 pt breathing much better. pt comfortable and calm. vss. on bipap. abg improved. transferred care to dr. mendez. i reviewed test, xray results with him and told him ct chest to be followed up on. pt likely to be transferred to [facility] 04/22/18 07:10 just received call from radiology. they will not perform ct chest if gfr< 50. therefore, i will arrange transfer to [facility]. i reviewed pt hx, condition, lab, ekg and cxr results with dr. guallpa at [facility] ed. she accepts pt in transfer. dr sandoval not involved in this pts care Blood Culture(s) Obtained: Yes Antibiotics given: Yes Counseled pt/family regarding: lab results, diagnosis, rad results - Departure Time of Disposition: 07:20 Departure Disposition: Transfer Clinical Impression: Elevated d-dimer, Elevated troponin, CHF (congestive heart failure), Leukocytosis, Respiratory distress Condition: Fair Critical Care Time: Yes Critical Care Time(excluding separately billable procedures): 30-74 minutes Referrals: BELKYS BERRY [Primary Care Provider] - Instructions: Heart Failure
[2018-04-22] MEDS ORDERED: solu-MEDROL 125 MG ONE (05:22)
[2018-04-22 05:26] LABS: Hematocrit 40.1 % (42-50); Hemoglobin 12.8 gm/dl (12.5-18.0); Mean Cell Volume 101.3 fl (78-100); Mean Corpuscular Hemoglobin 32.3 pg (26-32); Mean Corpuscular Hgb Concent. 31.9 g/dl (32-36); Mean Platelet Volume 9.7 fl (6-9.5); Platelet Count 465 K/mm3 (150-450); Red Blood Count 3.96 M/mm3 (4.1-5.6); Red Cell Distribution Width 14.5 % (11.5-14.0); White Blood Count 15.4 K/mm3 (4.0-10.5)
[2018-04-22 05:31] LABS: A-aADO2 520; ABG HEMOGLOBIN 12.5; ABG POTASSIUM 3.7 (3.5-5.1); ARTERIAL BLD GAS O2 SATURATION 98.2 % (95-100); ARTERIAL BLOOD GAS BASE EXCESS -6.4 (-2.0-2.0); ARTERIAL BLOOD GAS FIO2 100 %; ARTERIAL BLOOD GAS PEEP 6 cmH2O; ARTERIAL BLOOD GAS PO2 103 mmHg (75-100); ARTERIAL BLOOD GAS VENT MODE BiPAP; ARTERIAL BLOOD GAS pH 7.13 (7.35-7.45); CARBOXYHEMOGLOBIN 1.8 % THgb (0.0-6.9); HGB O2 SAT 95.8 g/dF (94-100); Lactic Acid 3.7 (0.4-2.0); Methhemoglobin 0.6 % (1.4-1.5); paO2 pAO1 0.17
[2018-04-22 05:32] LABS: ABG SITE RIGHT RADIAL; ALLEN TEST OK? YES; ARTERIAL BLOOD GAS PCO2 72 mmHg (35-45)
[2018-04-22 05:37] LABS: INR 1.15 (0.8-3.0); PROTIME 13.4 SECONDS (8.83-12.87)
[2018-04-22] MEDS ORDERED: Ativan 2 MG/1 ML VIAL IV ONE (05:38)
[2018-04-22 05:51] LABS: ANION GAP 16.8 MEQ/L (5-15); BILIRUBIN,TOTAL 1.2 mg/dL (0.2-1.3); Calcium 8.5 mg/dL (8.4-10.2); Creatinine 1 1.65 mg/dL (0.66-1.25); Potassium 3.9 mmol/L (3.5-5.1); Total Protein 7.1 g/dL (6.3-8.2)
[2018-04-22] MEDS ORDERED: Ativan 2 MG/1 ML VIAL ONE (05:53)
[2018-04-22] MEDS ORDERED: Lasix 40 MG/4 ML IV ONE (06:00)
[2018-04-22 06:02] LABS: INFLUENZA A NEGATIVE (NEGATIVE); INFLUENZA B NEGATIVE (NEGATIVE); RESPIRATORY SYNCTIAL VIRUS NEGATIVE (Negative)
[2018-04-22] MEDS ORDERED: Lasix 40 MG/4 ML ONE (06:20)
[2018-04-22 06:27] LABS: BAND 2 % (0.0-2.0); Eosinophil 2 % (0.00-3.0); Lymphocytes 33 % (24-44); Macrocytosis 1+; Monocyte 6 % (0.0-12.0); Neutrophils 57 % (36.-66.); Platelet Estimate NORMAL (NORMAL); Total Cells Counted 100
[2018-04-22 06:47] LABS: A-aADO2 452; ABG HEMOGLOBIN 12.2; ABG POTASSIUM 3.1 (3.5-5.1); ARTERIAL BLD GAS O2 SATURATION 98.9 % (95-100); ARTERIAL BLOOD GAS BASE EXCESS 1.3 (-2.0-2.0); ARTERIAL BLOOD GAS FIO2 85 %; ARTERIAL BLOOD GAS PCO2 40 mmHg (35-45); ARTERIAL BLOOD GAS PEEP 6 cmH2O; ARTERIAL BLOOD GAS PO2 104 mmHg (75-100); ARTERIAL BLOOD GAS VENT MODE BiPAP; ARTERIAL BLOOD GAS pH 7.42 (7.35-7.45); CARBOXYHEMOGLOBIN 1.5 % THgb (0.0-6.9); HCO3- 25.9 (22-28); HGB O2 SAT 96.5 g/dF (94-100); Methhemoglobin 0.9 % (1.4-1.5); paO2 pAO1 0.19
[2018-04-22 06:48] LABS: ABG SITE LEFT RADIAL
[2018-04-22 06:49] LABS: ALLEN TEST OK? YES
[2018-04-22] MEDS ORDERED: ROCEPHIN 1 Gm-D5w 50 ml Bag** 1 G/50 ML IVPB IV STA (07:20)
[2018-04-22] MEDS ORDERED: ROCEPHIN 1 Gm-D5w 50 ml Bag** 1 G/50 ML IVPB IV ONE (07:22)
[2018-04-22 07:29] VITALS: BP 102/67; PULSE 89; O2SAT 95
--- NOTE | 2018-04-22 09:21 | XRAY ---
Indication: Short of breath. Comparison: March 08, 2018. Portable chest again demonstrates diffuse bilateral interstitial alveolar opacities with new bilateral interstitial edema and right base consolidation/effusion. Heart is not enlarged. Bony thorax intact.
== END 2018-04-22 08:21 | disposition short-term general hospital (02) ==
LOC: ED 04:57
DX: R79.89 Other specified abnormal findings of blood chemistry (principal); R74.8 Abnormal levels of other serum enzymes; I50.9 Heart failure, unspecified; D72.829 Elevated white blood cell count, unspecified; R06.03 Acute respiratory distress; I25.2 Old myocardial infarction; J44.9 Chronic obstructive pulmonary disease, unspecified; J45.909 Unspecified asthma, uncomplicated; Z99.81 Dependence on supplemental oxygen; F41.9 Anxiety disorder, unspecified; Z79.899 Other long term (current) drug therapy
CPT/HCPCS: 36000; 36415; 36600; 71045; 80053; 82375; 82803; 83605; 83880; 84484; 85025; 85379; 85610; 87040; 87631; 93005; 93041; 94002; 96365; 96374; 96375; 99285; J0696; J1940; J2060; J2930

== ENCOUNTER 2018-06-04 18:42 | Emergency (ER) | payer MEDICARE ==
[~2018-06-04 18:42] MED LIST: DUONEB 0.5-3 MG/3 ml Neb IH ONE; Furosemide 100mg/10 ml Vial ONE; PROVENTIL Solution 2.5 MG/0.5 ML IH ONE; Sodium Chloride 3 ML UD NEBULES IH ONE; VENTOLIN 20 ML BOTTLE IH ONE
[2018-06-04] MEDS ORDERED: Lasix 40 MG/4 ML IV ONE (18:51)
[2018-06-04 18:55] LABS: A-aADO2 319; ABG HEMOGLOBIN 14.1; ABG POTASSIUM 3.7 (3.5-5.1); ABG SITE RIGHT RADIAL; ALLEN TEST OK? YES; ARTERIAL BLD GAS O2 SATURATION 100.4 % (95-100); ARTERIAL BLOOD GAS BASE EXCESS -11.5 (-2.0-2.0); ARTERIAL BLOOD GAS FIO2 100 %; ARTERIAL BLOOD GAS PCO2 48 mmHg (35-45); ARTERIAL BLOOD GAS PO2 334 mmHg (75-100); ARTERIAL BLOOD GAS VENT MODE BiPAP; ARTERIAL BLOOD GAS pH 7.16 (7.35-7.45); CARBOXYHEMOGLOBIN 4.4 % THgb (0.0-6.9); HCO3- 17.1 (22-28); HGB O2 SAT 95.1 g/dF (94-100); Methhemoglobin 0.9 % (1.4-1.5); paO2 pAO1 0.51
[2018-06-04 18:56] LABS: Lactic Acid 5.8 (0.4-2.0)
[2018-06-04] MEDS ORDERED: Sodium Chloride 0.9% 1000 ML 1,000 ML IV SCH (19:00)
[2018-06-04] MEDS ORDERED: Zithromax 500 MG/ 250 ML NaCl Premix 500 MG/250 ML IVPB IV STA (19:06)
[2018-06-04] MEDS ORDERED: ROCEPHIN 1 Gm-D5w 50 ml Bag** 1 G/50 ML IVPB IV STA (19:06)
[2018-06-04] MEDS ORDERED: solu-MEDROL 125 MG IV ONE (19:06)
[2018-06-04] MEDS ORDERED: Zithromax 500 MG/ 250 ML NaCl Premix 500 MG/250 ML IVPB IV ONE (19:12)
[2018-06-04] MEDS ORDERED: solu-MEDROL 125 MG ONE (19:12)
[2018-06-04] MEDS ORDERED: Sodium Chloride 0.9% 1000 ML 1,000 ML ONE (19:12)
[2018-06-04] MEDS ORDERED: ROCEPHIN 1 Gm-D5w 50 ml Bag** 1 G/50 ML IVPB IV ONE (19:13)
[2018-06-04 19:20] LABS: BASOPHIL % 0.3 % (0.0-0.4); Basophil (Absolute #) 0.05 (0-0.4); Eosinophil % 5.1 % (0.00-5.0); Eosinophil (Absolute #) 0.86 (0-0.5); Granulocyte Absolute (ANC) 11.55 (1.4-6.9); Hemoglobin 14.7 gm/dl (12.5-18.0); Lymphocyte (Absolute #) 3.17 (1.0-4.6); Lymphocytes % 18.9 % (24.0-44.0); Mean Cell Volume 100.2 fl (78-100); Mean Platelet Volume 9.7 fl (6-9.5); Monocyte (Absolute #) 1.12 (0.0-1.3); Monocytes % 6.7 % (0.0-12.0); Platelet Count 414 K/mm3 (150-450); Red Blood Count 4.59 M/mm3 (4.1-5.6); Red Cell Distribution Width 15.7 % (11.5-14.0); White Blood Count 16.8 K/mm3 (4.0-10.5)
[2018-06-04 19:27] LABS: INR 1.01 (0.8-3.0); PROTIME 11.7 SECONDS (8.83-12.87)
[2018-06-04 19:56] LABS: ALBUMIN 4.1 g/dL (3.5-5.0); ANION GAP 17.5 MEQ/L (5-15); Calcium 8.4 mg/dL (8.4-10.2); Creatinine 1 1.37 mg/dL (0.66-1.25); Potassium 4.4 mmol/L (3.5-5.1); Total Protein 7.1 g/dL (6.3-8.2)
[2018-06-04 19:56] LABS: Appearance CLEAR (CLEAR); Bilirubin NEGATIVE (NEGATIVE); Blood NEGATIVE Ery/ul (0-5); Glucose NEGATIVE (NEGATIVE); Ketones NEGATIVE (NEGATIVE); Leukocyte Esterase NEGATIVE (NEGATIVE); Nitrite NEGATIVE (NEGATIVE); Protein,Urine Dip NEGATIVE (Negative); Specific Gravity 1.002 (1.005-1.025); Urobilinogen NEGATIVE mg/dL (0-1)
--- NOTE | 2018-06-04 20:03 | ERPHSYRPT ---
- History of Present Illness Time Seen by Provider: 06/04/18 18:55 Source: patient Exam Limitations: clinical condition Patient Subjective Stated Complaint: shortness of breath Triage Nursing Assessment: Pt came in the ER with difficulty breathing, O2 was 80, placed on Bipap, has external pacemaker, tachycardic, 2 peripheral IV's placed on bilateral hands, temp brown placed, +1 bilateral lower extremity edema , able to answer some questions, denies pain Physician History: PATIENT WITH A HISTORY OF COPD, ASTHMA, CHF, ANTEROSEPTAL MYOCARDIAL INFARCTION ON 02/28/2018, FOLLOWED BY EMERGENCY CORONARY STENT INSERTION, NOW COMPLAINS OF A PRODUCTIVE COUGH YELLOW X 2 DAYS, ASSOCIATED WITH MARKED ONSET OF DYSPNEA OVER PAST 3 HOURS. DENIES FEVER, CHILLS OR CHEST PAIN. Timing/Duration: day(s) Activities at Onset: none Severity of Dyspnea-Max: severe Severity of Dyspnea-Current: severe Possible Cause: occasional episodes Modifying Factors: Improves With: activity Associated Symptoms: cough, ankle swelling International travel in last 2 weeks: No Allergies/Adverse Reactions: No Known Drug Allergies Allergy (Unverified 02/28/18 10:34) Home Medications: Aspirin 81 gm Chew [Baby Aspirin 81 mg Chew] 81 mg PO DAILY 02/28/18 [ History] Atorvastatin Calcium [Lipitor] 80 mg PO DAILY 04/22/18 [History] Carvedilol 3.125 mg [Coreg 3.125 MG] 3.125 mg PO BID 04/22/18 [History] Famotidine 40 mg PO DAILY 04/22/18 [History] Furosemide 40 mg PO DAILY 04/22/18 [History] Ticagrelor [Brilinta] 90 mg PO BID 04/22/18 [History] Trazodone HCl 150 mg PO DAILY 04/22/18 [History] Hx Tetanus, Diphtheria Vaccination/Date Given: Yes Hx Influenza Vaccination/Date Given: Yes Hx Pneumococcal Vaccination/Date Given: No - Review of Systems Constitutional: No Fever, No Chills Eyes: No Symptoms Ears, Nose, & Throat: No Symptoms Respiratory: Dyspnea on Exertion (FOSTER), No Cough, No Dyspnea Cardiac: No Symptoms, No Chest Pain, No Edema, No Syncope Abdominal/Gastrointestinal: No Symptoms, No Abdominal Pain, No Nausea, No Vomiting, No Diarrhea Genitourinary Symptoms: No Symptoms, No Dysuria Musculoskeletal: No Back Pain, No Neck Pain Skin: No Symptoms, No Rash Neurological: No Symptoms, No Dizziness, No Focal Weakness, No Sensory Changes Psychological: No Symptoms Endocrine: No Symptoms All Other Systems: Reviewed and Negative - Past Medical History Pertinent Past Medical History: Yes (unknown) Neurological History: No Pertinent History ENT History: No Pertinent History Cardiac History: Congestive Heart Failure, Myocardial Infarction (OR) Respiratory History: Asthma, COPD Endocrine Medical History: No Pertinent History Musculoskeletal History: No Pertinent History GI Medical History: No Pertinent History History: No Pertinent History Psycho-Social History: No Pertinent History Male Reproductive Disorders: No Pertinent History Other Medical History: unable to obtain d/t emergent - Past Surgical History Past Surgical History: Yes Neuro Surgical History: No Pertinent History Cardiac: Cardiac Stent Respiratory: No Pertinent History Gastrointestinal: No Pertinent History Genitourinary: No Pertinent History Musculoskeletal: No Pertinent History Male Surgical History: No Pertinent History Other Surgical History: unable to obtain d/t emergent - Social History Smoking Status: Unknown if ever smoked Patient Lives Alone: No - Nursing Vital Signs Nursing Vital Signs: Initial Vital Signs Pulse Rate 119 H 06/04/18 18:42 Respiratory Rate 40 H 06/04/18 18:42 O2 Sat by Pulse Oximetry 100 06/04/18 18:42 - Physical Exam General Appearance: severe distress Eye Exam: PERRL/EOMI Neck Exam: normal inspection, supple, JVD Respiratory Exam: diminished breath sounds, accessory muscle use, crackles/ rales (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 WITH FAINT 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 EXPIRATORY WHEEZES), wheezing, other (LABORED BREATHING) Cardiovascular/Chest Exam: normal heart sounds Abdominal/Gastrointestinal Exam: soft, normal bowel sounds Extremity Exam: non-tender, normal range of motion, pedal edema (+1) Peripheral Pulses Exam: carotid (R): 2+, carotid (L): 2+, femoral (R): 2+, femoral (L): 2+, dorsalis-pedis (R): 2+, dorsalis-pedis (L): 2+ Neurologic Exam: alert, oriented x 3 Skin Exam: normal color, warm SpO2 Interpretation: normal SpO2: 100 O2 Delivery: Aerosol Mask - Course EKG Interpreted by Me: RATE, Sinus Rhythm, NORMAL AXIS, Left [place] Deviation, NORMAL ST-T, Non-specific ST Changes - Radiology Exams Chest X-ray Interpretation: Interpreted by me (BILATERAL MIDDLE AND LOWER LOBE INFILTRATES) Ordered Tests: Active Orders 24 hr Category Date Time Status Thermostat Mechanic STAT Care 06/04/18 18:49 Active EKG-ER Only STAT Care 06/04/18 18:48 Active Brown [Catheter-Vici Brown] STAT Care 06/04/18 18:52 Active Pulse Oximetry (ED) STAT Care 06/04/18 18:48 Active CHEST 1 VIEW (PORTABLE) Routine Exams 06/04/18 18:47 Taken ABG [ARTERIAL BLOOD GASES] Stat Lab 06/04/18 18:48 Completed Alcohol [ETHYL ALCOHOL] Stat Lab 06/04/18 19:36 Completed BLOOD CULTURE Stat Lab 06/04/18 19:32 Received CBC W DIFF Stat Lab 06/04/18 18:50 Completed CMP Stat Lab 06/04/18 18:50 Completed Lactic Acid Stat Lab 06/04/18 18:48 Completed Lactic Acid Stat Lab 06/04/18 20:54 Ordered MAGNESIUM Stat Lab 06/04/18 18:50 Completed PT INR [PROTIME WITH INR] Stat Lab 06/04/18 18:50 Completed Sputum Culture [CULTURE,SPUTUM] Stat Lab 06/04/18 Uncollected TROPONIN Q3H Lab 06/04/18 19:00 Completed TROPONIN Q3H Lab 06/04/18 22:00 Ordered TROPONIN Q3H Lab 06/05/18 01:00 Ordered TROPONIN Q3H Lab 06/05/18 04:00 Ordered TROPONIN Q3H Lab 06/05/18 07:00 Ordered UA W/RFX UR CULTURE Stat Lab 06/04/18 19:00 Completed BiPap/CPAP STAT RT 06/04/18 20:28 Active Respiratory Nebulizer STAT RT 06/04/18 20:21 Completed Respiratory Nebulizer STAT RT 06/04/18 21:20 Completed Respiratory Therapy Assessment ASORD RT 06/04/18 20:27 Active Medication Summary Generic Name Dose Route Start Last Admin Trade Name Freq PRN Reason Stop Dose Admin Sodium Chloride 1,000 mls @ 10 mls/hr 06/04/18 19:00 06/04/18 19:21 Sodium Chloride 0.9% 1000 Ml IV 07/04/18 18:59 10 mls/hr .Q24H KATHI Administration Discontinued Medications Generic Name Dose Route Start Last Admin Trade Name Freq PRN Reason Stop Dose Admin Albuterol Sulfate 10 mg 06/04/18 18:40 06/04/18 18:50 Ventolin 20 Ml Bottle IH 06/04/18 18:41 10 mg STAT ONE Administration Albuterol/Ipratropium 3 ml 06/04/18 18:30 06/04/18 18:45 Duoneb 0.5-3 Mg/3 Ml Neb IH 06/04/18 18:31 3 ml STAT ONE Administration Albuterol/Ipratropium Confirm 06/04/18 20:33 Duoneb 0.5-3 Mg/3 Ml Neb Administered 06/04/18 20:34 Dose 3 ml IH .STK-MED ONE Albuterol/Ipratropium 3 ml 06/04/18 20:50 06/04/18 21:20 Duoneb 0.5-3 Mg/3 Ml Neb IH 06/04/18 20:51 3 ml STAT ONE Administration Furosemide 60 mg 06/04/18 18:51 06/04/18 18:46 Lasix 40 Mg/4 Ml IV 06/04/18 18:52 60 mg STAT ONE Administration Ceftriaxone Sodium/Dextrose 1 g in 50 mls @ 100 mls/hr 06/04/18 19:06 19:32 Rocephin 1 Gm-D5w 50 Ml Bag IV 06/04/18 19:35 100 mls/hr STAT STA Administration Azithromycin 500 mg in 250 mls @ 250 mls/hr 06/04/18 19:06 06/04/18 19:33 Zithromax 500 Mg/ 250 Ml Nacl Premix IV 06/04/18 20:05 250 mls/hr STAT STA Administration Azithromycin Confirm 06/04/18 19:12 Zithromax 500 Mg/ 250 Ml Nacl Premix Administered 06/04/18 19:13 Dose 500 mg in 250 mls @ ud IV .STK-MED ONE Ceftriaxone Sodium/Dextrose Confirm 06/04/18 19:13 Rocephin 1 Gm-D5w 50 Ml Bag Administered 06/04/18 19:14 Dose 1 g in 50 mls @ ud IV .STK-MED ONE Methylprednisolone Sodium Succinate 125 mg 06/04/18 19:06 06/04/18 19:20 Solu-Medrol 125 Mg IV 06/04/18 19:07 125 mg STAT ONE Administration Methylprednisolone Sodium Succinate Confirm 06/04/18 19:12 Solu-Medrol 125 Mg Administered 06/04/18 19:13 Dose 125 mg .ROUTE .STK-MED ONE Lab/Rad Data: Laboratory Result Diagrams 06/04/18 18:50 06/04/18 18:50 Laboratory Results 06/04/18 06/04/18 06/04/18 Range/Units 20:20 19:36 19:00 WBC (4.0-10.5) K/mm3 RBC (4.1-5.6) M/mm3 Hgb (12.5-18.0) gm/dl Hct (42-50) % MCV (78-100) fl MCH (26-32) pg MCHC (32-36) g/dl RDW (11.5-14.0) % Plt Count (150-450) K/mm3 MPV (6-9.5) fl Gran % (36.0-66.0) % Eos # (Auto) (0-0.5) Absolute Lymphs (auto) (1.0-4.6) Absolute Monos (auto) (0.0-1.3) Lymphocytes % (24.0-44.0) % Monocytes % (0.0-12.0) % Eosinophils % (0.00-5.0) % Basophils % (0.0-0.4) % Absolute Granulocytes (1.4-6.9) Basophils # (0-0.4) PT (8.83-12.87) SECONDS INR (0.8-3.0) Puncture Site pCO2 (35-45) mmHg pO2 (75-100) mmHg Base Excess (-2.0-2.0) O2 Saturation (94-100) g/dF ABG pH (7.35-7.45) ABG HCO3 (22-28) ABG O2 Sat (Measured) (95-100) % Bong Test A-a Gradient a/A Ratio Hemoglobin Carboxyhemoglobin (0.0-6.9) % THgb Methemoglobin (1.4-1.5) % Potassium (3.5-5.1) Temperature C POC O2 Flow Rate % Vent Mode Inspiratory BiPAP Expiratory BiPAP Sodium (137-145) mmol/L Chloride (98-107) mmol/L Carbon Dioxide (22-30) mmol/L Anion Gap (5-15) MEQ/L BUN (9-20) mg/dL Creatinine (0.66-1.25) mg/dL Estimated GFR ML/MIN Glucose (74-106) mg/dL Lactic Acid (0.4-2.0) Calcium (8.4-10.2) mg/dL Magnesium (1.6-2.3) mg/dL Total Bilirubin (0.2-1.3) mg/dL AST (17-59) U/L ALT (0-50) U/L Alkaline Phosphatase (38-126) U/L Troponin I (0.000-0.034) ng/mL Serum Total Protein (6.3-8.2) g/dL Albumin (3.5-5.0) g/dL Urine Color STRAW (YELLOW) Urine Appearance CLEAR (CLEAR) Urine pH 6.0 (5-6) Ur Specific [place] 1.002 (1.005-1.025) Urine Protein NEGATIVE (Negative) Urine Ketones NEGATIVE (NEGATIVE) Urine Blood NEGATIVE (0-5) Chip/ul Urine Nitrite NEGATIVE (NEGATIVE) Urine Bilirubin NEGATIVE (NEGATIVE) Urine Urobilinogen NEGATIVE (0-1) mg/dL Ur Leukocyte Esterase NEGATIVE (NEGATIVE) Urine WBC (Auto) NONE (0-5) /HPF Urine RBC (Auto) NONE (0-2) /HPF U Epithel Cells (Auto) NONE (FEW) /HPF Urine Bacteria (Auto) NONE (NEGATIVE) /HPF Urine Culture Reflexed NO (NO) Urine Glucose NEGATIVE (NEGATIVE) mg/dL Ethyl Alcohol 38 H (0-10) mg/dL Influenza Type A Ag NEGATIVE (NEGATIVE) Influenza Type B Ag NEGATIVE (NEGATIVE) RSV (PCR) NEGATIVE (Negative) 06/04/18 06/04/18 06/04/18 Range/Units 19:00 18:50 18:50 WBC (4.0-10.5) K/mm3 RBC (4.1-5.6) M/mm3 Hgb (12.5-18.0) gm/dl Hct (42-50) % MCV (78-100) fl MCH (26-32) pg MCHC (32-36) g/dl RDW (11.5-14.0) % Plt Count (150-450) K/mm3 MPV (6-9.5) fl Gran % (36.0-66.0) % Eos # (Auto) (0-0.5) Absolute Lymphs (auto) (1.0-4.6) Absolute Monos (auto) (0.0-1.3) Lymphocytes % (24.0-44.0) % Monocytes % (0.0-12.0) % Eosinophils % (0.00-5.0) % Basophils % (0.0-0.4) % Absolute Granulocytes (1.4-6.9) Basophils # (0-0.4) PT 11.7 (8.83-12.87) SECONDS INR 1.01 (0.8-3.0) Puncture Site pCO2 (35-45) mmHg pO2 (75-100) mmHg Base Excess (-2.0-2.0) O2 Saturation (94-100) g/dF ABG pH (7.35-7.45) ABG HCO3 (22-28) ABG O2 Sat (Measured) (95-100) % Bong Test A-a Gradient a/A Ratio Hemoglobin Carboxyhemoglobin (0.0-6.9) % THgb Methemoglobin (1.4-1.5) % Potassium (3.5-5.1) Temperature C POC O2 Flow Rate % Vent Mode Inspiratory BiPAP Expiratory BiPAP Sodium (137-145) mmol/L Chloride (98-107) mmol/L Carbon Dioxide (22-30) mmol/L Anion Gap (5-15) MEQ/L BUN (9-20) mg/dL Creatinine (0.66-1.25) mg/dL Estimated GFR ML/MIN Glucose (74-106) mg/dL Lactic Acid (0.4-2.0) Calcium (8.4-10.2) mg/dL Magnesium 2.1 (1.6-2.3) mg/dL Total Bilirubin (0.2-1.3) mg/dL AST (17-59) U/L ALT (0-50) U/L Alkaline Phosphatase (38-126) U/L Troponin I 0.063 H* (0.000-0.034) ng/mL Serum Total Protein (6.3-8.2) g/dL Albumin (3.5-5.0) g/dL Urine Color (YELLOW) Urine Appearance (CLEAR) Urine pH (5-6) Ur Specific [place] (1.005-1.025) Urine Protein (Negative) Urine Ketones (NEGATIVE) Urine Blood (0-5) Chip/ul Urine Nitrite (NEGATIVE) Urine Bilirubin (NEGATIVE) Urine Urobilinogen (0-1) mg/dL Ur Leukocyte Esterase (NEGATIVE) Urine WBC (Auto) (0-5) /HPF Urine RBC (Auto) (0-2) /HPF U Epithel Cells (Auto) (FEW) /HPF Urine Bacteria (Auto) (NEGATIVE) /HPF Urine Culture Reflexed (NO) Urine Glucose (NEGATIVE) mg/dL Ethyl Alcohol (0-10) mg/dL Influenza Type A Ag (NEGATIVE) Influenza Type B Ag (NEGATIVE) RSV (PCR) (Negative) 06/04/18 06/04/18 06/04/18 Range/Units 18:50 18:50 18:48 WBC 16.8 H (4.0-10.5) K/mm3 RBC 4.59 (4.1-5.6) M/mm3 Hgb 14.7 (12.5-18.0) gm/dl Hct 46.0 (42-50) % MCV 100.2 H (78-100) fl MCH 32.0 (26-32) pg MCHC 32.0 (32-36) g/dl RDW 15.7 H (11.5-14.0) % Plt Count 414 (150-450) K/mm3 MPV 9.7 H (6-9.5) fl Gran % 69.0 H (36.0-66.0) % Eos # (Auto) 0.86 H (0-0.5) Absolute Lymphs (auto) 3.17 (1.0-4.6) Absolute Monos (auto) 1.12 (0.0-1.3) Lymphocytes % 18.9 L (24.0-44.0) % Monocytes % 6.7 (0.0-12.0) % Eosinophils % 5.1 H (0.00-5.0) % Basophils % 0.3 (0.0-0.4) % Absolute Granulocytes 11.55 H (1.4-6.9) Basophils # 0.05 (0-0.4) PT (8.83-12.87) SECONDS INR (0.8-3.0) Puncture Site RIGHT RADIAL pCO2 48 H (35-45) mmHg pO2 334 H* (75-100) mmHg Base Excess -11.5 L (-2.0-2.0) O2 Saturation 95.1 (94-100) g/dF ABG pH 7.16 L* (7.35-7.45) ABG HCO3 17.1 L (22-28) ABG O2 Sat (Measured) 100.4 H (95-100) % Bong Test YES A-a Gradient 319 a/A Ratio 0.51 Hemoglobin 14.1 Carboxyhemoglobin 4.4 (0.0-6.9) % THgb Methemoglobin 0.9 L (1.4-1.5) % Potassium 4.4 3.7 (3.5-5.1) Temperature 37.0 C POC O2 Flow Rate 100 % Vent Mode BiPAP Inspiratory BiPAP 12 Expiratory BiPAP 6 Sodium 131 L (137-145) mmol/L Chloride 93 L (98-107) mmol/L Carbon Dioxide 24 (22-30) mmol/L Anion Gap 17.5 H (5-15) MEQ/L BUN 16 (9-20) mg/dL Creatinine 1.37 H (0.66-1.25) mg/dL Estimated GFR 54.0 ML/MIN Glucose 162 H (74-106) mg/dL Lactic Acid (0.4-2.0) Calcium 8.4 (8.4-10.2) mg/dL Magnesium (1.6-2.3) mg/dL Total Bilirubin 1.00 (0.2-1.3) mg/dL AST 51 (17-59) U/L ALT 24 (0-50) U/L Alkaline Phosphatase 133 H (38-126) U/L Troponin I (0.000-0.034) ng/mL Serum Total Protein 7.1 (6.3-8.2) g/dL Albumin 4.1 (3.5-5.0) g/dL Urine Color (YELLOW) Urine Appearance (CLEAR) Urine pH (5-6) Ur Specific [place] (1.005-1.025) Urine Protein (Negative) Urine Ketones (NEGATIVE) Urine Blood (0-5) Chip/ul Urine Nitrite (NEGATIVE) Urine Bilirubin (NEGATIVE) Urine Urobilinogen (0-1) mg/dL Ur Leukocyte Esterase (NEGATIVE) Urine WBC (Auto) (0-5) /HPF Urine RBC (Auto) (0-2) /HPF U Epithel Cells (Auto) (FEW) /HPF Urine Bacteria (Auto) (NEGATIVE) /HPF Urine Culture Reflexed (NO) Urine Glucose (NEGATIVE) mg/dL Ethyl Alcohol (0-10) mg/dL Influenza Type A Ag (NEGATIVE) Influenza Type B Ag (NEGATIVE) RSV (PCR) (Negative) 06/04/18 Range/Units 18:48 WBC (4.0-10.5) K/mm3 RBC (4.1-5.6) M/mm3 Hgb (12.5-18.0) gm/dl Hct (42-50) % MCV (78-100) fl MCH (26-32) pg MCHC (32-36) g/dl RDW (11.5-14.0) % Plt Count (150-450) K/mm3 MPV (6-9.5) fl Gran % (36.0-66.0) % Eos # (Auto) (0-0.5) Absolute Lymphs (auto) (1.0-4.6) Absolute Monos (auto) (0.0-1.3) Lymphocytes % (24.0-44.0) % Monocytes % (0.0-12.0) % Eosinophils % (0.00-5.0) % Basophils % (0.0-0.4) % Absolute Granulocytes (1.4-6.9) Basophils # (0-0.4) PT (8.83-12.87) SECONDS INR (0.8-3.0) Puncture Site pCO2 (35-45) mmHg pO2 (75-100) mmHg Base Excess (-2.0-2.0) O2 Saturation (94-100) g/dF ABG pH (7.35-7.45) ABG HCO3 (22-28) ABG O2 Sat (Measured) (95-100) % Bong Test A-a Gradient a/A Ratio Hemoglobin Carboxyhemoglobin (0.0-6.9) % THgb Methemoglobin (1.4-1.5) % Potassium (3.5-5.1) Temperature C POC O2 Flow Rate % Vent Mode Inspiratory BiPAP Expiratory BiPAP Sodium (137-145) mmol/L Chloride (98-107) mmol/L Carbon Dioxide (22-30) mmol/L Anion Gap (5-15) MEQ/L BUN (9-20) mg/dL Creatinine (0.66-1.25) mg/dL Estimated GFR ML/MIN Glucose (74-106) mg/dL Lactic Acid 5.8 H (0.4-2.0) Calcium (8.4-10.2) mg/dL Magnesium (1.6-2.3) mg/dL Total Bilirubin (0.2-1.3) mg/dL AST (17-59) U/L ALT (0-50) U/L Alkaline Phosphatase (38-126) U/L Troponin I (0.000-0.034) ng/mL Serum Total Protein (6.3-8.2) g/dL Albumin (3.5-5.0) g/dL Urine Color (YELLOW) Urine Appearance (CLEAR) Urine pH (5-6) Ur Specific [place] (1.005-1.025) Urine Protein (Negative) Urine Ketones (NEGATIVE) Urine Blood (0-5) Chip/ul Urine Nitrite (NEGATIVE) Urine Bilirubin (NEGATIVE) Urine Urobilinogen (0-1) mg/dL Ur Leukocyte Esterase (NEGATIVE) Urine WBC (Auto) (0-5) /HPF Urine RBC (Auto) (0-2) /HPF U Epithel Cells (Auto) (FEW) /HPF Urine Bacteria (Auto) (NEGATIVE) /HPF Urine Culture Reflexed (NO) Urine Glucose (NEGATIVE) mg/dL Ethyl Alcohol (0-10) mg/dL Influenza Type A Ag (NEGATIVE) Influenza Type B Ag (NEGATIVE) RSV (PCR) (Negative) - Progress Progress: improved, re-examined Air Movement: fair Progress Note: 06/04/18 20:19 ADMINISTERED DUO NEB AEROSOL, IV LASIX 60MG, PLACED ONTO BIPAP, GIVEN CONTINUOUS ALBUTEROL 10MG OVER 1 HOUR, SOLUMEDROL 125MG IV, AFTER 2 SETS OF BLOOD CULTURES, ROCEPHIN 1GM AND ZITHROMAX 500MG IVPB 06/04/18 20:22 LABORATORY DATA CBC-WBC-16,800, LACTIC ACID 5.8, UNABLE TO ADMINISTER IV NORMAL SALINE DUE TO CONGESTIVE HEART FAILURE. Blood Culture(s) Obtained: Yes Antibiotics given: Yes Discussed with : Other (DISCUSSED WITH DR GOMEZ AT 2049 [facility] ACCEPTS TRANSFER VIA [facility]) - Departure Time of Disposition: 21:50 Departure Disposition: Transfer Clinical Impression: ACUTE DYSPNEA, PNEUMONIA, EXACERBATION COPD Condition: Stable Critical Care Time: No Referrals: BELKYS BERRY [Primary Care Provider] -
[2018-06-04 20:08] VITALS: O2SAT 100
[2018-06-04] MEDS ORDERED: DUONEB 0.5-3 MG/3 ml Neb IH ONE ×2 (20:33→20:50)
[2018-06-04 20:41] VITALS: PULSE 102
[2018-06-04 21:08] VITALS: BP 94/72
[2018-06-04 21:16] LABS: INFLUENZA A NEGATIVE (NEGATIVE); INFLUENZA B NEGATIVE (NEGATIVE); RESPIRATORY SYNCTIAL VIRUS NEGATIVE (Negative)
--- NOTE | 2018-06-05 09:11 | XRAY ---
Indication: Short of breath. Comparison: April 22, 2018. Portable apical lordotic chest again demonstrates diffuse bilateral interstitial alveolar opacities but less than before. Lung bases are now partially obscured due to overlying monitoring/electronic devices limiting evaluation for effusion. Remaining heart and lungs unremarkable.
== END 2018-06-04 21:41 | disposition short-term general hospital (02) ==
LOC: ED 18:42
DX: R06.00 Dyspnea, unspecified (principal); J18.9 Pneumonia, unspecified organism; J44.9 Chronic obstructive pulmonary disease, unspecified; Z79.899 Other long term (current) drug therapy; I50.9 Heart failure, unspecified; I25.2 Old myocardial infarction
CPT/HCPCS: 51702; 80053; 81001; 82375; 82803; 83605; 83735; 84484; 85025; 85610; 87040; 87631; 93005; 93041; 94640; 96365; 96368; 96374; 96375; 99291; G0480; 36415; 36600; 71045; 80307; 94002; 99285; J0456; J0696; J1940; J2930; A9270-GY

== ENCOUNTER 2018-06-10 09:58 | Emergency (ER) | payer MEDICARE ==
--- NOTE | 2018-06-10 10:14 | ERPHSYRPT ---
- History of Present Illness Time Seen by Provider: 06/10/18 10:13 Source: patient Exam Limitations: no limitations Physician History: 72 y/o white male with h/o chf and pulmonary edema, presents 10 pound weight gain over 2 days. pt denies sx of any kind. he is concerned because he has suddenly experienced severe soa without warning. he denies soa, denies cp, denies leg swelling. pt states he feels as good as he ever has. the weight gain is concerning. pt has a cardiac vest in place, uses bumex and wieghs himself the same way every morning. pt took his meds this am. Timing/Duration: today Modifying Factors: Improves With: nothing Associated Symptoms: denies symptoms Allergies/Adverse Reactions: No Known Drug Allergies Allergy (Unverified 02/28/18 10:34) Home Medications: Aspirin 81 gm Chew [Baby Aspirin 81 mg Chew] 81 mg PO DAILY 02/28/18 [ History] Atorvastatin Calcium [Lipitor] 80 mg PO DAILY 04/22/18 [History] Carvedilol 3.125 mg [Coreg 3.125 MG] 3.125 mg PO BID 04/22/18 [History] Famotidine 40 mg PO DAILY 04/22/18 [History] Furosemide 40 mg PO DAILY 04/22/18 [History] Ticagrelor [Brilinta] 90 mg PO BID 04/22/18 [History] Trazodone HCl 150 mg PO DAILY 04/22/18 [History] Hx Tetanus, Diphtheria Vaccination/Date Given: Yes Hx Influenza Vaccination/Date Given: Yes Hx Pneumococcal Vaccination/Date Given: No - Review of Systems Constitutional: No Symptoms Eyes: No Symptoms Ears, Nose, & Throat: No Symptoms Respiratory: No Symptoms Cardiac: No Symptoms Abdominal/Gastrointestinal: No Symptoms Genitourinary Symptoms: No Symptoms Musculoskeletal: No Symptoms Skin: No Symptoms Neurological: No Symptoms Psychological: No Symptoms Endocrine: No Symptoms Hematologic/Lymphatic: No Symptoms Immunological/Allergic: No Symptoms All Other Systems: Reviewed and Negative - Past Medical History Pertinent Past Medical History: Yes (unknown) Neurological History: No Pertinent History ENT History: No Pertinent History Cardiac History: Congestive Heart Failure, Myocardial Infarction ([place]) Respiratory History: Asthma, COPD Endocrine Medical History: No Pertinent History Musculoskeletal History: No Pertinent History GI Medical History: No Pertinent History History: No Pertinent History Psycho-Social History: No Pertinent History Male Reproductive Disorders: No Pertinent History Other Medical History: unable to obtain d/t emergent - Past Surgical History Past Surgical History: Yes Neuro Surgical History: No Pertinent History Cardiac: Cardiac Stent Respiratory: No Pertinent History Gastrointestinal: No Pertinent History Genitourinary: No Pertinent History Musculoskeletal: No Pertinent History Male Surgical History: No Pertinent History Other Surgical History: unable to obtain d/t emergent - Social History Smoking Status: Unknown if ever smoked Patient Lives Alone: No - Nursing Vital Signs Nursing Vital Signs: Initial Vital Signs Temperature 97.4 F 06/10/18 10:20 Pulse Rate 68 06/10/18 10:20 Respiratory Rate 16 06/10/18 10:20 Blood Pressure 93/67 06/10/18 10:20 O2 Sat by Pulse Oximetry 98 06/10/18 10:20 Pain Scale Pain Intensity 0 - Physical Exam General Appearance: no apparent distress, alert, anxiety Eye Exam: PERRL/EOMI Ears, Nose, Throat Exam: normal ENT inspection, moist mucous membranes Neck Exam: normal inspection, non-tender, supple, full range of motion Respiratory Exam: normal breath sounds, lungs clear, airway intact, No chest tenderness, No respiratory distress, No diminished breath sounds, No accessory muscle use Cardiovascular Exam: regular rate/rhythm, normal heart sounds, normal peripheral pulses Gastrointestinal/Abdomen Exam: soft, normal bowel sounds, No tenderness Rectal Exam: not done Back Exam: normal inspection, normal range of motion, No CVA tenderness, No vertebral tenderness Extremity Exam: normal inspection, normal range of motion, pelvis stable Neurologic Exam: alert, oriented x 3, cooperative, 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 tested Skin Exam: normal color, warm, dry Lymphatic Exam: No adenopathy SpO2 Interpretation: normal O2 Delivery: Room Air - Course Nursing assessment & vital signs reviewed: Yes EKG Interpreted by Me: RATE (61), Left [place] Deviation, NORMAL INTERVALS, Other ( comparison ekg 06/04/17 new incomplete rbbb, tachycardia resolved, nonspecific st change resolved.) Ordered Tests: Active Orders 24 hr Category Date Time Status Slat Grader STAT Care 06/10/18 10:34 Active EKG-ER Only STAT Care 06/10/18 10:33 Active IV Insertion STAT Care 06/10/18 10:33 Active Pulse Oximetry (ED) STAT Care 06/10/18 10:33 Active CHEST 1 VIEW (PORTABLE) Stat Exams 06/10/18 10:34 Completed CBC W DIFF Stat Lab 06/10/18 10:30 Completed CMP Stat Lab 06/10/18 10:30 Completed NT PRO BNP Stat Lab 06/10/18 10:30 Completed TROPONIN Q3H Lab 06/10/18 10:30 Completed TROPONIN Q3H Lab 06/10/18 13:43 Completed TROPONIN Q3H Lab 06/10/18 16:45 Ordered TROPONIN Q3H Lab 06/10/18 19:45 Ordered TROPONIN Q3H Lab 06/10/18 22:45 Ordered Medication Summary Discontinued Medications Generic Name Dose Route Start Last Admin Trade Name Freq PRN Reason Stop Dose Admin Bumetanide 1 mg 06/10/18 11:46 06/10/18 11:52 Bumex 1 Mg IV 06/10/18 11:47 1 mg STAT ONE Administration Bumetanide Confirm 06/10/18 11:51 Bumex 1 Mg Administered 06/10/18 11:52 Dose 1 mg .ROUTE .STK-MED ONE Lab/Rad Data: Laboratory Result Diagrams 06/10/18 10:30 06/10/18 10:30 Laboratory Results 06/10/18 06/10/18 06/10/18 Range/Units 13:43 10:30 10:30 WBC (4.0-10.5) K/mm3 RBC (4.1-5.6) M/mm3 Hgb (12.5-18.0) gm/dl Hct (42-50) % MCV (78-100) fl MCH (26-32) pg MCHC (32-36) g/dl RDW (11.5-14.0) % Plt Count (150-450) K/mm3 MPV (6-9.5) fl Gran % (36.0-66.0) % Eos # (Auto) (0-0.5) Absolute Lymphs (auto) (1.0-4.6) Absolute Monos (auto) (0.0-1.3) Lymphocytes % (24.0-44.0) % Monocytes % (0.0-12.0) % Eosinophils % (0.00-5.0) % Basophils % (0.0-0.4) % Absolute Granulocytes (1.4-6.9) Basophils # (0-0.4) Sodium 133 L (137-145) mmol/L Potassium 4.3 (3.5-5.1) mmol/L Chloride 94 L (98-107) mmol/L Carbon Dioxide 30 (22-30) mmol/L Anion Gap 12.9 (5-15) MEQ/L BUN 28 H (9-20) mg/dL Creatinine 1.79 H (0.66-1.25) mg/dL Estimated GFR 39.7 ML/MIN Glucose 91 (74-106) mg/dL Calcium 9.0 (8.4-10.2) mg/dL Total Bilirubin 0.80 (0.2-1.3) mg/dL AST 35 (17-59) U/L ALT 35 (0-50) U/L Alkaline Phosphatase 122 (38-126) U/L Troponin I 0.040 H* 0.048 H* (0.000-0.034) ng/mL NT-Pro-B Natriuret Pep 3130 H (0-900) pg/mL Serum Total Protein 7.2 (6.3-8.2) g/dL Albumin 4.1 (3.5-5.0) g/dL 06/10/18 Range/Units 10:30 WBC 8.4 (4.0-10.5) K/mm3 RBC 3.81 L (4.1-5.6) M/mm3 Hgb 12.4 L (12.5-18.0) gm/dl Hct 37.1 L (42-50) % MCV 97.4 (78-100) fl MCH 32.5 H (26-32) pg MCHC 33.4 (32-36) g/dl RDW 15.2 H (11.5-14.0) % Plt Count 380 (150-450) K/mm3 MPV 9.0 (6-9.5) fl Gran % 66.5 H (36.0-66.0) % Eos # (Auto) 0.81 H (0-0.5) Absolute Lymphs (auto) 0.98 L (1.0-4.6) Absolute Monos (auto) 0.97 (0.0-1.3) Lymphocytes % 11.7 L (24.0-44.0) % Monocytes % 11.6 (0.0-12.0) % Eosinophils % 9.7 H (0.00-5.0) % Basophils % 0.5 (0.0-0.4) % Absolute Granulocytes 5.56 (1.4-6.9) Basophils # 0.04 (0-0.4) Sodium (137-145) mmol/L Potassium (3.5-5.1) mmol/L Chloride (98-107) mmol/L Carbon Dioxide (22-30) mmol/L Anion Gap (5-15) MEQ/L BUN (9-20) mg/dL Creatinine (0.66-1.25) mg/dL Estimated GFR ML/MIN Glucose (74-106) mg/dL Calcium (8.4-10.2) mg/dL Total Bilirubin (0.2-1.3) mg/dL AST (17-59) U/L ALT (0-50) U/L Alkaline Phosphatase (38-126) U/L Troponin I (0.000-0.034) ng/mL NT-Pro-B Natriuret Pep (0-900) pg/mL Serum Total Protein (6.3-8.2) g/dL Albumin (3.5-5.0) g/dL - Progress Progress: improved Progress Note: 06/10/18 12:[address] uriostegui's [employer] William Del Valle. i reviewed pt hx, condition, lab , ekg and cxr results. he recommends repeat 3 hour troponin. if it doubles then call him back for transfer. if only mildly elevated from its current level or lower, ok to d/c to home with decrease entresto and coreg dosage in half. 06/10/18 14:[address] lawson palliative senior np instructions, will discharge pt and pt to take 1/2 dose of entresto and coreg. Counseled pt/family regarding: lab results, diagnosis, need for follow-up, rad results - Departure Time of Disposition: 14:30 Departure Disposition: Home Clinical Impression: CHF (congestive heart failure), Hypotension Condition: Stable Critical Care Time: No Referrals: BELKYS BERRY [Primary Care Provider] - Instructions: Heart Failure Additional Instructions: take one half the current dose of your coreg and entresto. same other medication doses. follow up with dr. Lawson office tomorrow for further management
[2018-06-10 10:54] LABS: BASOPHIL % 0.5 % (0.0-0.4); Basophil (Absolute #) 0.04 (0-0.4); Eosinophil % 9.7 % (0.00-5.0); Eosinophil (Absolute #) 0.81 (0-0.5); Granulocyte Absolute (ANC) 5.56 (1.4-6.9); Granulocytes % 66.5 % (36.0-66.0); Hematocrit 37.1 % (42-50); Hemoglobin 12.4 gm/dl (12.5-18.0); Lymphocyte (Absolute #) 0.98 (1.0-4.6); Lymphocytes % 11.7 % (24.0-44.0); Mean Cell Volume 97.4 fl (78-100); Mean Corpuscular Hemoglobin 32.5 pg (26-32); Mean Corpuscular Hgb Concent. 33.4 g/dl (32-36); Monocyte (Absolute #) 0.97 (0.0-1.3); Monocytes % 11.6 % (0.0-12.0); Platelet Count 380 K/mm3 (150-450); Red Blood Count 3.81 M/mm3 (4.1-5.6); Red Cell Distribution Width 15.2 % (11.5-14.0); White Blood Count 8.4 K/mm3 (4.0-10.5)
--- NOTE | 2018-06-10 11:02 | XRAY ---
Indication: Cough. Comparison: June 04, 2018. Portable chest demonstrates near-complete clearing of previous bilateral interstitial alveolar opacities with minimal residual right base. Heart is not enlarged. No new cardiopulmonary abnormalities. Again incidental multiple overlying monitoring/electronic devices.
[2018-06-10 11:12] LABS: ALBUMIN 4.1 g/dL (3.5-5.0); ANION GAP 12.9 MEQ/L (5-15); BILIRUBIN,TOTAL 0.8 mg/dL (0.2-1.3); Creatinine 1 1.79 mg/dL (0.66-1.25); Potassium 4.3 mmol/L (3.5-5.1); Total Protein 7.2 g/dL (6.3-8.2)
[2018-06-10] MEDS ORDERED: BUMEX 1 MG IV ONE (11:46)
[2018-06-10] MEDS ORDERED: BUMEX 1 MG ONE (11:51)
[2018-06-10 12:08] VITALS: O2SAT 100
[2018-06-10 14:38] VITALS: BP 95/59; PULSE 70
== END 2018-06-10 14:47 | disposition home or self-care (01) ==
LOC: ED 09:58
DX: I50.9 Heart failure, unspecified (principal); I95.9 Hypotension, unspecified; I25.2 Old myocardial infarction
CPT/HCPCS: 36000; 36415; 71045; 80053; 83880; 84484; 85025; 93005; 93041; 96374; 99284

== ENCOUNTER 2018-06-25 10:32 | Observation (INO) | payer MEDICARE ==
--- NOTE | 2018-06-25 10:39 | ERPHSYRPT ---
- History of Present Illness Time Seen by Provider: 06/25/18 10:39 Source: patient, EMS Exam Limitations: clinical condition Physician History: 72 y/o white male with h/o cadz, mi, chf, copd and anxiety presents with sudden onset soa that began this morning. pt is no longer smoking tobacco. denies pain of any kind. pt seen here for similar complaints on 06/10/18. ems brought pt into ED. oxygen sats on arrival at home 88%. ems gave 125mg iv solumedrol and a duoneb tx and while receiving duoneb on arrival oxygen sat 93%. Timing/Duration: today Activities at Onset: none Severity of Dyspnea-Max: moderate Severity of Dyspnea-Current: moderate Possible Cause: occasional episodes Modifying Factors: Improves With: albuterol nebulizer, coughing, oxygen Associated Symptoms: anxiety, cough, productive cough (yellow), No chest pain/ discomfort Allergies/Adverse Reactions: No Known Drug Allergies Allergy (Verified 06/25/18 10:53) Home Medications: Aspirin 81 gm Chew [Baby Aspirin 81 mg Chew] 81 mg PO DAILY 02/28/18 [ History] Atorvastatin Calcium [Lipitor] 80 mg PO DAILY 04/22/18 [History] Carvedilol 3.125 mg [Coreg 3.125 MG] 3.125 mg PO BID 04/22/18 [History] Famotidine 40 mg PO DAILY 04/22/18 [History] Furosemide 40 mg PO DAILY 04/22/18 [History] Ticagrelor [Brilinta] 90 mg PO BID 04/22/18 [History] Trazodone HCl 150 mg PO DAILY 04/22/18 [History] Hx Tetanus, Diphtheria Vaccination/Date Given: Yes Hx Influenza Vaccination/Date Given: Yes Hx Pneumococcal Vaccination/Date Given: No - Review of Systems Constitutional: No Symptoms Eyes: No Symptoms Ears, Nose, & Throat: No Symptoms Respiratory: Cough, Dyspnea, Wheezing Cardiac: No Symptoms Abdominal/Gastrointestinal: No Symptoms Genitourinary Symptoms: No Symptoms Musculoskeletal: No Symptoms Skin: No Symptoms Neurological: No Symptoms Psychological: No Symptoms Endocrine: No Symptoms Hematologic/Lymphatic: No Symptoms Immunological/Allergic: No Symptoms All Other Systems: Reviewed and Negative - Past Medical History Pertinent Past Medical History: Yes (unknown) Neurological History: No Pertinent History ENT History: No Pertinent History Cardiac History: Congestive Heart Failure, Myocardial Infarction ([place]) Respiratory History: Asthma, COPD Endocrine Medical History: No Pertinent History Musculoskeletal History: No Pertinent History GI Medical History: No Pertinent History History: No Pertinent History Psycho-Social History: No Pertinent History Male Reproductive Disorders: No Pertinent History Other Medical History: unable to obtain d/t emergent - Past Surgical History Past Surgical History: Yes Neuro Surgical History: No Pertinent History Cardiac: Cardiac Stent Respiratory: No Pertinent History Gastrointestinal: No Pertinent History Genitourinary: No Pertinent History Musculoskeletal: No Pertinent History Male Surgical History: No Pertinent History Other Surgical History: unable to obtain d/t emergent - Social History Smoking Status: Unknown if ever smoked Exposure to second hand smoke: No Drug Use: none Patient Lives Alone: No - Nursing Vital Signs Nursing Vital Signs: Initial Vital Signs Pulse Rate 113 H 06/25/18 10:40 Respiratory Rate 28 H 06/25/18 10:40 Blood Pressure 143/119 06/25/18 10:40 O2 Sat by Pulse Oximetry 93 L 06/25/18 10:40 Pain Scale Pain Intensity 0 - Physical Exam General Appearance: moderate distress, alert, anxiety Eye Exam: PERRL/EOMI, eyes nml inspection Neck Exam: normal inspection, non-tender, supple, full range of motion Respiratory Exam: respiratory distress, airway intact, wheezing, No chest tenderness Cardiovascular/Chest Exam: tachycardia Abdominal/Gastrointestinal Exam: soft, normal bowel sounds, No tenderness, No guarding Rectal Exam: not done Extremity Exam: non-tender, normal range of motion, normal inspection Neurologic Exam: alert, oriented x 3, cooperative, glaze carrier II-XII nml as tested Skin Exam: normal color, warm, dry Lymphatic Exam: No adenopathy SpO2 Interpretation: hypoxic, ABG ordered, O2 applied, airway management int. O2 Delivery: Room Air - Course Nursing assessment & vital signs reviewed: Yes EKG Interpreted by Me: RATE ([id number]), Sinus Tach, Left [place] Deviation, Other ( compared to ekg dated 06/10/18, new tachycardia otherwise no change) Ordered Tests: Active Orders 24 hr Category Date Time Status Clean Out Driller Helper STAT Care 06/25/18 10:47 Active EKG-ER Only STAT Care 06/25/18 10:46 Active IV Insertion STAT Care 06/25/18 10:46 Active CHEST 1 VIEW (PORTABLE) Stat Exams 06/25/18 10:47 Completed ARTERIAL BLOOD GASES Stat Lab 06/25/18 11:00 Completed CBC W DIFF Stat Lab 06/25/18 11:09 Completed CMP Stat Lab 06/25/18 11:09 Completed D-DIMER QUANTITATION Stat Lab 06/25/18 11:09 Completed Lactic Acid Stat Lab 06/25/18 11:00 Completed NT PRO BNP Stat Lab 06/25/18 11:09 Completed PROTIME WITH INR Stat Lab 06/25/18 11:09 Completed TROPONIN Q3H Lab 06/25/18 11:09 Completed TROPONIN Q3H Lab 06/25/18 14:00 Ordered TROPONIN Q3H Lab 06/25/18 17:00 Ordered TROPONIN Q3H Lab 06/25/18 20:00 Ordered TROPONIN Q3H Lab 06/25/18 23:00 Ordered BiPap/CPAP STAT RT 06/25/18 10:46 Active Respiratory Nebulizer STAT RT 06/25/18 11:43 Completed Respiratory Therapy Assessment DAILY RT 06/25/18 11:43 Active Medication Summary Discontinued Medications Generic Name Dose Route Start Last Admin Trade Name Freq PRN Reason Stop Dose Admin Albuterol Sulfate Confirm 06/25/18 10:45 Proventil 2.5 Mg/3 Ml Neb Administered 06/25/18 10:46 Dose 2.5 mg IH .STK-MED ONE Albuterol/Ipratropium 3 ml 06/25/18 11:00 06/25/18 11:00 Duoneb 0.5-3 Mg/3 Ml Neb IH 06/25/18 11:01 3 ml STAT ONE Administration Furosemide 40 mg 06/25/18 12:29 06/25/18 12:39 Lasix 40 Mg/4 Ml IV 06/25/18 12:30 40 mg STAT ONE Administration Furosemide Confirm 06/25/18 12:37 Lasix 40 Mg/4 Ml Administered 06/25/18 12:38 Dose 40 mg .ROUTE .STK-MED ONE Lorazepam 1 mg 06/25/18 10:46 06/25/18 10:58 Ativan 2 Mg/1 Ml Vial IV 06/25/18 10:47 1 mg STAT ONE Administration Lorazepam Confirm 06/25/18 10:55 Ativan 2 Mg/1 Ml Vial Administered 06/25/18 10:56 Dose 2 mg .ROUTE .STK-MED ONE Lab/Rad Data: Laboratory Result Diagrams 06/25/18 11:09 06/25/18 11:09 Laboratory Results 06/25/18 06/25/18 06/25/18 Range/Units 11:09 11:09 11:09 WBC (4.0-10.5) K/mm3 RBC (4.1-5.6) M/mm3 Hgb (12.5-18.0) gm/dl Hct (42-50) % MCV (78-100) fl MCH (26-32) pg MCHC (32-36) g/dl RDW (11.5-14.0) % Plt Count (150-450) K/mm3 MPV (6-9.5) fl Gran % (36.0-66.0) % Eos # (Auto) (0-0.5) Absolute Lymphs (auto) (1.0-4.6) Absolute Monos (auto) (0.0-1.3) Lymphocytes % (24.0-44.0) % Monocytes % (0.0-12.0) % Eosinophils % (0.00-5.0) % Basophils % (0.0-0.4) % Absolute Granulocytes (1.4-6.9) Basophils # (0-0.4) PT 17.5 H (8.83-12.87) SECONDS INR 1.50 (0.8-3.0) D-Dimer 827 H* (215-500) ng/mL Puncture Site pCO2 (35-45) mmHg pO2 (75-100) mmHg Base Excess (-2.0-2.0) O2 Saturation (94-100) g/dF ABG pH (7.35-7.45) ABG HCO3 (22-28) ABG O2 Sat (Measured) (95-100) % Bong Test A-a Gradient a/A Ratio Hemoglobin Carboxyhemoglobin (0.0-6.9) % THgb Methemoglobin (1.4-1.5) % Potassium 4.0 (3.5-5.1) Temperature C POC O2 Flow Rate % Vent Mode Inspiratory BiPAP Expiratory BiPAP Sodium 134 L (137-145) mmol/L Chloride 98 (98-107) mmol/L Carbon Dioxide 25 (22-30) mmol/L Anion Gap 15.6 H (5-15) MEQ/L BUN 24 H (9-20) mg/dL Creatinine 1.66 H (0.66-1.25) mg/dL Estimated GFR 43.3 ML/MIN Glucose 183 H (74-106) mg/dL Lactic Acid (0.4-2.0) Calcium 8.7 (8.4-10.2) mg/dL Total Bilirubin 0.80 (0.2-1.3) mg/dL AST 30 (17-59) U/L ALT 24 (0-50) U/L Alkaline Phosphatase 152 H (38-126) U/L Troponin I 0.032 (0.000-0.034) ng/mL NT-Pro-B Natriuret Pep 4160 H (0-900) pg/mL Serum Total Protein 6.9 (6.3-8.2) g/dL Albumin 3.8 (3.5-5.0) g/dL 06/25/18 06/25/18 Range/Units 11:09 11:00 WBC 8.8 (4.0-10.5) K/mm3 RBC 3.64 L (4.1-5.6) M/mm3 Hgb 11.9 L (12.5-18.0) gm/dl Hct 35.9 L (42-50) % MCV 98.6 (78-100) fl MCH 32.6 H (26-32) pg MCHC 33.1 (32-36) g/dl RDW 15.2 H (11.5-14.0) % Plt Count 337 (150-450) K/mm3 MPV 9.6 H (6-9.5) fl Gran % 80.2 H (36.0-66.0) % Eos # (Auto) 0.33 (0-0.5) Absolute Lymphs (auto) 0.85 L (1.0-4.6) Absolute Monos (auto) 0.55 (0.0-1.3) Lymphocytes % 9.6 L (24.0-44.0) % Monocytes % 6.2 (0.0-12.0) % Eosinophils % 3.7 (0.00-5.0) % Basophils % 0.3 (0.0-0.4) % Absolute Granulocytes 7.06 H (1.4-6.9) Basophils # 0.03 (0-0.4) PT (8.83-12.87) SECONDS INR (0.8-3.0) D-Dimer (215-500) ng/mL Puncture Site LEFT RADIAL pCO2 37 (35-45) mmHg pO2 94 (75-100) mmHg Base Excess 3.2 H (-2.0-2.0) O2 Saturation 94.4 (94-100) g/dF ABG pH 7.47 H (7.35-7.45) ABG HCO3 26.9 (22-28) ABG O2 Sat (Measured) 99.2 (95-100) % Bong Test Yes A-a Gradient 288 a/A Ratio 0.25 Hemoglobin 12.4 Carboxyhemoglobin 4.1 (0.0-6.9) % THgb Methemoglobin 0.8 L (1.4-1.5) % Potassium 3.7 (3.5-5.1) Temperature 37.0 C POC O2 Flow Rate 60 % Vent Mode BiPAP Inspiratory BiPAP 12 Expiratory BiPAP 6 Sodium (137-145) mmol/L Chloride (98-107) mmol/L Carbon Dioxide (22-30) mmol/L Anion Gap (5-15) MEQ/L BUN (9-20) mg/dL Creatinine (0.66-1.25) mg/dL Estimated GFR ML/MIN Glucose (74-106) mg/dL Lactic Acid 1.4 (0.4-2.0) Calcium (8.4-10.2) mg/dL Total Bilirubin (0.2-1.3) mg/dL AST (17-59) U/L ALT (0-50) U/L Alkaline Phosphatase (38-126) U/L Troponin I (0.000-0.034) ng/mL NT-Pro-B Natriuret Pep (0-900) pg/mL Serum Total Protein (6.3-8.2) g/dL Albumin (3.5-5.0) g/dL - Progress Progress: improved Air Movement: good Progress Note: 06/25/18 13:[address] uriostegui, pts officer lieutenant. ok to observe pt here. give lasix and tx infiltrate. also spoke with dr. renteria. he accepts pt for observation. will place pt on rocephin, azithromax, lasix, solumedrol, and neb tx. Blood Culture(s) Obtained: Yes Antibiotics given: Yes Discussed with : Marco Other (gila) Counseled pt/family regarding: lab results, diagnosis, rad results - Departure Departure Disposition: Observation Clinical Impression: CHF (congestive heart failure), COPD exacerbation, Infiltrate of lung present on chest x-ray Condition: Stable Critical Care Time: No Referrals: BELKYS BERRY [Primary Care Provider] - Instructions: Heart Failure, Chronic Obstructive Pulmonary Disease
[2018-06-25] MEDS ORDERED: PROVENTIL 2.5 MG/3 ML NEB IH ONE ×2 (10:45→10:50)
[2018-06-25] MEDS ORDERED: Ativan 2 MG/1 ML VIAL IV ONE (10:46)
[2018-06-25] MEDS ORDERED: Ativan 2 MG/1 ML VIAL ONE (10:55)
[2018-06-25] MEDS ORDERED: DUONEB 0.5-3 MG/3 ml Neb IH ONE (11:00)
[2018-06-25 11:13] LABS: A-aADO2 288; ABG HEMOGLOBIN 12.4; ABG POTASSIUM 3.7 (3.5-5.1); ARTERIAL BLD GAS O2 SATURATION 99.2 % (95-100); ARTERIAL BLOOD GAS BASE EXCESS 3.2 (-2.0-2.0); ARTERIAL BLOOD GAS FIO2 60 %; ARTERIAL BLOOD GAS PCO2 37 mmHg (35-45); ARTERIAL BLOOD GAS PO2 94 mmHg (75-100); ARTERIAL BLOOD GAS VENT MODE BiPAP; ARTERIAL BLOOD GAS pH 7.47 (7.35-7.45); CARBOXYHEMOGLOBIN 4.1 % THgb (0.0-6.9); HCO3- 26.9 (22-28); HGB O2 SAT 94.4 g/dF (94-100); Lactic Acid 1.4 (0.4-2.0); Methhemoglobin 0.8 % (1.4-1.5); paO2 pAO1 0.25
[2018-06-25 11:14] LABS: ABG SITE LEFT RADIAL; ALLEN TEST OK? Yes
[2018-06-25 11:20] LABS: BASOPHIL % 0.3 % (0.0-0.4); Basophil (Absolute #) 0.03 (0-0.4); Eosinophil % 3.7 % (0.00-5.0); Eosinophil (Absolute #) 0.33 (0-0.5); Granulocyte Absolute (ANC) 7.06 (1.4-6.9); Granulocytes % 80.2 % (36.0-66.0); Hematocrit 35.9 % (42-50); Hemoglobin 11.9 gm/dl (12.5-18.0); Lymphocyte (Absolute #) 0.85 (1.0-4.6); Lymphocytes % 9.6 % (24.0-44.0); Mean Cell Volume 98.6 fl (78-100); Mean Corpuscular Hgb Concent. 33.1 g/dl (32-36); Mean Platelet Volume 9.6 fl (6-9.5); Monocyte (Absolute #) 0.55 (0.0-1.3); Monocytes % 6.2 % (0.0-12.0); Platelet Count 337 K/mm3 (150-450); Red Blood Count 3.64 M/mm3 (4.1-5.6); Red Cell Distribution Width 15.2 % (11.5-14.0); White Blood Count 8.8 K/mm3 (4.0-10.5)
[2018-06-25 11:22] LABS: Mean Corpuscular Hemoglobin 32.6 pg (26-32)
[2018-06-25 11:26] LABS: INR 1.5 (0.8-3.0); PROTIME 17.5 SECONDS (8.83-12.87)
--- NOTE | 2018-06-25 11:34 | XRAY ---
Indication: Cough and short of breath. Comparison: June 10, 2018. Portable chest demonstrates slight worsening right base patchy air space disease with slight increasing effusion. Also new diffuse left lung patchy airspace disease with tiny effusion. Heart is not enlarged.
[2018-06-25 11:38] LABS: ALBUMIN 3.8 g/dL (3.5-5.0); ANION GAP 15.6 MEQ/L (5-15); BILIRUBIN,TOTAL 0.8 mg/dL (0.2-1.3); Calcium 8.7 mg/dL (8.4-10.2); Creatinine 1 1.66 mg/dL (0.66-1.25); Total Protein 6.9 g/dL (6.3-8.2)
[2018-06-25] MEDS ORDERED: Lasix 40 MG/4 ML IV ONE (12:29)
[2018-06-25] MEDS ORDERED: Lasix 40 MG/4 ML ONE (12:37)
[2018-06-25] MEDS ORDERED: ROCEPHIN 1 Gm-D5w 50 ml Bag** 1 G/50 ML IVPB IV STA (13:23)
[2018-06-25] MEDS ORDERED: ROCEPHIN 1 Gm-D5w 50 ml Bag** 1 G/50 ML IVPB IV ONE (13:29)
[2018-06-25] MEDS ORDERED: Zofran 4 MG/2 ML VIAL IV PRN (14:37)
[2018-06-25] MEDS ORDERED: TYLENOL 325 MG PO PRN (14:37)
[2018-06-25] MEDS ORDERED: Zithromax 500 MG/ 250 ML NaCl Premix 500 MG/250 ML IVPB IV SCH (15:00)
[2018-06-25] MEDS: DUONEB 0.5-3 MG/3 ml Neb IH SCH (17:08)
[2018-06-25] MEDS ORDERED: ENTRESTO 49 MG-51 MG TABLET PO SCH (22:00)
[2018-06-25] MEDS ORDERED: Lasix 40 MG/4 ML IV SCH (22:00)
[2018-06-25] MEDS ORDERED: ELIQUIS 2.5 MG TABLET PO SCH (22:00)
[2018-06-25] MEDS ORDERED: xanAX 0.25 MG PO SCH (22:00)
[2018-06-25] MEDS ORDERED: Coreg 3.125 MG PO SCH (22:00)
[2018-06-26] MEDS: DUONEB 0.5-3 MG/3 ml Neb IH SCH ×2 (02:06→06:40)
[2018-06-26 07:20] VITALS: BP 90/60; PULSE 78
[2018-06-26 07:36] VITALS: O2SAT 95
--- NOTE | 2018-06-26 09:39 | SSS ---
DISCHARGE DIAGNOSES: 1) CONGESTIVE HEART FAILURE. 2) CORONARY ARTERY DISEASE. 3) UNSTABLE ANGINA. HISTORY: The patient is a 72 year-old white male patient who reports that he was doing fine until yesterday when he was getting gas at the gas station. He became short of breath. He reports that he continued to be somewhat short of breath when he got home. He tried a nebulizer treatment with no improvement. The patient specifically denied any upper respiratory tract infection symptoms, no wheezing. The patient presented himself to the emergency room and continued to be somewhat short of breath until he was admitted to the hospital. PAST MEDICAL/SURGICAL HISTORY: Significant for coronary artery disease, chronic obstructive pulmonary disease, hyperlipidemia, gastroesophageal reflux disease. The patient previously had a myocardial infarction. HOME MEDICATIONS: Currently are aspirin 81 mg daily, Lipitor 80 mg a day, carvedilol 3.125 mg b.i.d., famotidine 40 mg a day, Lasix 40 mg a day, Brilinta 90 mg b.i.d., trazodone 150 mg at night. ALLERGIES: NKDA. PHYSICAL EXAMINATION: Revealed a well-nourished, well-developed 72 year-old white male patient in no distress. His vital signs in the emergency room showed pulse 113, respiratory rate 28 and blood pressure 143/119. O2 saturation 93%. HEENT: Normocephalic, atraumatic. Pupils equal round reactive to light. Extraocular movements intact. Oropharynx is pink and moist. NECK: Supple without lymphadenopathy, thyromegaly or JVD. CHEST: Clear to auscultation with good air movement bilaterally. HEART: Currently regular rate and rhythm without murmurs, rubs or gallops. ABDOMEN: Soft. No palpable masses. EXTREMITIES: Without cyanosis, clubbing or edema. NEUROLOGIC: The patient is alert and oriented x3. No focal deficits were noted. LAB DATA AND TESTS: Revealed significant elevation in his troponin of 0.053 at one point at its highest down to 0.042 by the evening of 06/25/2018. The patient's ProBNP was also significantly elevated at 9,120. Metabolic panel showed glucose 183, BUN 24, creatinine 1.66. Electrolytes were normal. Liver enzymes are normal. Arterial blood gas showed a pH of 7.47, pCO2 of 37, pO2 of 94 on an undisclosed amount of oxygen. His D-dimer was slightly elevated at 827 but due to his elevation in creatinine we could not do the CT pulmonary embolism protocol although I do not feel the patient has any evidence of pulmonary embolism. No previous history of deep venous thrombosis. The patient's hemoglobin was 11.9, white count 8,800, PLT count 337,000. Chest x-ray showed diffuse left lung patchy airspace disease with tiny effusion, heart was not enlarged. Despite the patient's findings from the chest x-ray, he has had absolutely no symptoms in regards to cough, wheeze or other symptoms other than just simply being short of breath. HOSPITAL COURSE: The patient was admitted to the medicine liu. He has been essentially free of any discomfort admission. He was initially treated for chronic obstructive pulmonary disease exacerbation with antibiotics, IV steroids and nebulizer treatments PRN. However to me it is more likely cardiac in nature as his troponins were elevated and his ProBNP was ten times normal. The patient is now completely symptom free and has been since his admission to the hospital hours ago. The patient's stock clipper was informed and evaluated in the emergency room by Dr. Collazo who was okay with just admitting him here and monitoring him. If the patient remains totally symptom free over the past several hours, we will allow him to be discharged home at this time to follow up with his stock clipper soon and he is to continue his usual home medications. He is to return to the hospital if he has any further episodes of shortness of breath or any chest discomfort. The patient will also be seen in my office within the next week for follow up as well.
[2018-06-26] MEDS ORDERED: THERAGRAN MULTIVITAMIN PO SCH (10:00)
[2018-06-26] MEDS ORDERED: PLAVIX 75 MG Tablet PO SCH (10:00)
[2018-06-26] MEDS ORDERED: Cordarone 200 MG PO SCH (10:00)
[2018-06-26] MEDS ORDERED: Coreg 3.125 MG PO SCH (10:00)
[2018-06-26] MEDS ORDERED: ROCEPHIN 1 Gm-D5w 50 ml Bag** 1 G/50 ML IVPB IV SCH (10:00)
[2018-06-26] MEDS ORDERED: Pepcid 20 MG PO SCH (10:00)
[2018-06-26] MEDS ORDERED: Aldactone 25 MG PO SCH (17:00)
[2018-06-26] MEDS ORDERED: NON-FORMULARY ITEM (Multivitamin W-Minerals/Lutein [Centrum Silver Tablet] 1 EACH) PO SCH (22:00)
== END 2018-06-26 10:15 | disposition home or self-care (01) ==
LOC: ED 10:32 → MED SURG 14:27
PROVIDERS: ADMIT Family Medicine; ATTEND Family Medicine
DX: I50.9 Heart failure, unspecified (principal); I25.110 Atherosclerotic heart disease of native coronary artery with unstable angina pectoris; J44.9 Chronic obstructive pulmonary disease, unspecified; E78.5 Hyperlipidemia, unspecified; K21.9 Gastro-esophageal reflux disease without esophagitis; I25.2 Old myocardial infarction; Z79.899 Other long term (current) drug therapy; R79.89 Other specified abnormal findings of blood chemistry
CPT/HCPCS: 36415; 36600; 71045; 80053; 82375; 82803; 83605; 83880; 84484; 85025; 85379; 85610; 93005; 93041; 93268; 94002; 94150; 94640; 94760; 96365; 96374; 96375; 99285; J0456; J0696; J1940; J2060; J7609; A9270-GY; G0378

== ENCOUNTER 2018-07-01 01:20 | Emergency (ER) | payer MEDICARE ==
[2018-07-01] MEDS ORDERED: Lasix 40 MG/4 ML IV ONE (01:35)
--- NOTE | 2018-07-01 01:40 | ERPHSYRPT ---
- History of Present Illness Time Seen by Provider: 07/01/18 01:36 Source: patient Exam Limitations: no limitations Physician History: 72-year-old white male with history of CHF, myocardial infarction, asthma, COPD Brought by medics with complaint of sudden onset of severe shortness of breath, Patient states he was sitting on the couch. When he suddenly became short of breath he was noted by medics to have oxygen saturations down into the 70s he was given albuterol treatment and ipratropium bromide,. He was placed on BiPAP. Patient is somewhat better he is however complaining of feeling short of breath he denies any chest pain no nausea no vomiting. Past medical history includes congestive heart failure, myocardial infarction, asthma, COPD. Past surgical history includes cardiac stent. Timing/Duration: today (one half hour prior to ar) Activities at Onset: other (sitting on couch) Severity of Dyspnea-Max: moderate Severity of Dyspnea-Current: moderate Possible Cause: frequent episodes Modifying Factors: Improves With: nothing Associated Symptoms: constant, cough (nonproductive cough), wheezing, No intermittent, No anxiety, No chest pain/discomfort, No edema, No fever, No insomnia, No loss of appetite, No lightheadedness, No weakness, No ankle swelling, No chills, No hemoptysis, No calf pain, No dizziness, No heaviness, No heart racing, No lightheadedness, No leg swelling, No muscle spasms feet, No muscle spasms hands, No painful breathing, No productive cough, No sweating, No tightness, No tingling face, No tingling hands International travel in last 2 weeks: No Allergies/Adverse Reactions: No Known Drug Allergies Allergy (Verified 07/01/18 02:16) Home Medications: Atorvastatin Calcium [Lipitor] 80 mg PO DAILY 04/22/18 [History] Carvedilol 3.125 mg [Coreg 3.125 MG] 1.562 mg PO BID 04/22/18 [History] Famotidine 20 mg PO DAILY 04/22/18 [History] Trazodone HCl 150 mg PO DAILY PRN 04/22/18 [History] Albuterol 8 gm Mdi Hfa [Ventolin Hfa MDI] 90 mcg IH Q4HPRN PRN 06/25/18 [ History] Alprazolam 0.25 mg [xanAX 0.25 MG] 0.125 mg PO BID 06/25/18 [History] Amiodarone HCl 200 mg [Cordarone 200 MG] 200 mg PO DAILY 06/25/18 [History ] Apixaban [Eliquis] 5 mg PO BID 06/25/18 [History] Bumetanide 1 mg [Bumex 1 mg] 1 mg PO BID 06/25/18 [History] Clopidogrel Bisulfate 75 mg [PLAVIX 75 MG Tablet] 75 mg PO DAILY 06/25/18 [History] Ipratropium/Albuterol Sulfate [Iprat-Albut 0.5-3(2.5) mg/3 ml] 3 ml IH QIDPRN PRN 06/25/18 [History] Multivitamin W-Minerals/Lutein [Centrum Silver Tablet] 1 each PO HS 06/25/18 [ History] Sacubitril/Valsartan [Entresto 24 mg-26 mg Tablet] 0.5 each PO BID 06/25/18 [ History] Spironolactone 25 mg [Aldactone 25 MG] 12.5 mg PO 1700 06/25/18 [History] Hx Tetanus, Diphtheria Vaccination/Date Given: Yes Hx Influenza Vaccination/Date Given: Yes Hx Pneumococcal Vaccination/Date Given: No - Review of Systems Constitutional: No Fever, No Chills Eyes: No Symptoms Ears, Nose, & Throat: No Symptoms Respiratory: Cough, Dyspnea Cardiac: No Chest Pain, No Edema, No Syncope Abdominal/Gastrointestinal: No Abdominal Pain, No Nausea, No Vomiting, No Diarrhea Genitourinary Symptoms: No Dysuria Musculoskeletal: No Back Pain, No Neck Pain Skin: No Rash Neurological: No Dizziness, No Focal Weakness, No Sensory Changes Psychological: No Symptoms Endocrine: No Symptoms All Other Systems: Reviewed and Negative - Past Medical History Pertinent Past Medical History: Yes (unknown) Neurological History: No Pertinent History ENT History: No Pertinent History Cardiac History: Congestive Heart Failure, Coronary Artery Disease, Myocardial Infarction (NH) Respiratory History: Asthma, CHF, COPD, Pneumonia Endocrine Medical History: No Pertinent History Musculoskeletal History: No Pertinent History GI Medical History: No Pertinent History History: No Pertinent History Psycho-Social History: No Pertinent History Male Reproductive Disorders: No Pertinent History Other Medical History: unable to obtain d/t emergent - Past Surgical History Past Surgical History: Yes Neuro Surgical History: No Pertinent History Cardiac: Cardiac Stent Respiratory: No Pertinent History Gastrointestinal: Appendectomy, Hernia Repair Genitourinary: No Pertinent History Musculoskeletal: No Pertinent History Male Surgical History: No Pertinent History Other Surgical History: back surgery (lumbar disc replacements); currently has hernia that needs repair - Social History Smoking Status: Former smoker How long have you smoked: 50 yr Exposure to second hand smoke: No Drug Use: none Patient Lives Alone: No - Nursing Vital Signs Nursing Vital Signs: Initial Vital Signs Temperature 96.7 F 07/01/18 01:30 Pulse Rate 90 07/01/18 01:30 Respiratory Rate 46 H 07/01/18 01:30 Blood Pressure 117/91 07/01/18 01:30 O2 Sat by Pulse Oximetry 90 L 07/01/18 01:30 Pain Scale Pain Intensity 0 - Physical Exam General Appearance: moderate distress, alert Eye Exam: PERRL/EOMI Ears, Nose, Throat Exam: hearing grossly normal, normal ENT inspection, normal pharynx, No abnormal TM (R), No abnormal TM (L), No sinus pain/drainage, No hearing decreased, No nasal congestion, No pharyngeal erythema, No tonsillar exudate Neck Exam: normal inspection, supple Respiratory Exam: diminished breath sounds, crackles/rales (bilateral rales) Cardiovascular/Chest Exam: normal heart sounds, regular rate/rhythm Abdominal/Gastrointestinal Exam: soft, No tenderness, No distention, No mass Extremity Exam: non-tender, normal range of motion, normal inspection, no calf tenderness, no pedal edema Peripheral Pulses Exam: dorsalis-pedis (R): 2+, dorsalis-pedis (L): 2+ Neurologic Exam: alert, oriented x 3, cooperative, clip and hanger attacher II-XII nml as tested, sensation nml, No motor deficits Skin Exam: normal color, warm, No dry SpO2 Interpretation: hypoxic (90% ) O2 Delivery: BiPap/CPAP - Course Nursing assessment & vital signs reviewed: Yes EKG Interpreted by Me: RATE (101 bpm), Sinus Tach, Left [place] Deviation, LAFB, Right Bundle Branch Block, Other (EKG: Sinus tachycardia, 101 bpm, left axis deviation, right bundle branch block, no acute ST or T wave changes) - Radiology Exams Chest X-ray Interpretation: Interpreted by me (pulmonary edema) Ordered Tests: Active Orders 24 hr Category Date Time Status [employer] STAT Care 07/01/18 01:33 Active Catheter-[place] STAT Care 07/01/18 01:35 Active EKG-ER Only STAT Care 07/01/18 01:33 Active IV Insertion STAT Care 07/01/18 01:33 Active Pulse Oximetry (ED) STAT Care 07/01/18 01:33 Active CHEST 1 VIEW (PORTABLE) Stat Exams 07/01/18 01:33 Taken ARTERIAL BLOOD GASES Stat Lab 07/01/18 01:48 Completed BLOOD CULTURE Stat Lab 07/01/18 02:01 Received CBC W DIFF Stat Lab 07/01/18 01:23 Completed CMP Stat Lab 07/01/18 01:23 Completed D-DIMER QUANTITATION Stat Lab 07/01/18 01:23 Completed Lactic Acid Stat Lab 07/01/18 01:48 Completed Manual Differential NC Stat Lab 07/01/18 01:23 Completed NT PRO BNP Stat Lab 07/01/18 01:23 Completed PROTIME WITH INR Stat Lab 07/01/18 01:23 Completed PTT Stat Lab 07/01/18 01:23 Completed TROPONIN Q3H Lab 07/01/18 01:23 Completed BiPap/CPAP STAT RT 07/01/18 01:33 Completed Medication Summary Discontinued Medications Generic Name Dose Route Start Last Admin Trade Name Freq PRN Reason Stop Dose Admin Aspirin 81 mg 07/01/18 02:29 07/01/18 03:03 Baby Aspirin 81 Mg Chew PO 07/01/18 02:30 81 mg STAT ONE Administration Aspirin Confirm 07/01/18 03:02 Baby Aspirin 81 Mg Chew Administered 07/01/18 03:03 Dose 81 mg .ROUTE .STK-MED ONE Furosemide 40 mg 07/01/18 01:35 07/01/18 02:10 Lasix 40 Mg/4 Ml IV 07/01/18 01:36 40 mg STAT ONE Administration Furosemide Confirm 07/01/18 03:02 Lasix 40 Mg/4 Ml Administered 07/01/18 03:03 Dose 40 mg .ROUTE .STK-MED ONE Methylprednisolone Sodium Succinate 125 mg 07/01/18 02:01 07/01/18 02:10 Solu-Medrol 125 Mg IV 07/01/18 02:02 125 mg STAT ONE Administration Methylprednisolone Sodium Succinate Confirm 07/01/18 03:02 Solu-Medrol 125 Mg Administered 07/01/18 03:03 Dose 125 mg .ROUTE .STK-MED ONE Lab/Rad Data: Laboratory Result Diagrams 07/01/18 01:23 07/01/18 01:23 Laboratory Results 07/01/18 07/01/18 07/01/18 Range/Units 01:48 01:23 01:23 WBC (4.0-10.5) K/mm3 RBC (4.1-5.6) M/mm3 Hgb (12.5-18.0) gm/dl Hct (42-50) % MCV (78-100) fl MCH (26-32) pg MCHC (32-36) g/dl RDW (11.5-14.0) % Plt Count (150-450) K/mm3 MPV (6-9.5) fl PT 14.7 H (8.83-12.87) SECONDS INR 1.26 (0.8-3.0) APTT 27.2 (24.1-36.1) SECONDS D-Dimer 2148 H* (215-500) ng/mL Puncture Site RIGHT RADIAL pCO2 44 (35-45) mmHg pO2 70 L (75-100) mmHg Base Excess 0.5 (-2.0-2.0) O2 Saturation 91.9 L (94-100) g/dF ABG pH 7.38 (7.35-7.45) ABG HCO3 26.0 (22-28) ABG O2 Sat (Measured) 96.8 (95-100) % Bong Test YES A-a Gradient 588 a/A Ratio 0.11 Hemoglobin 13.8 Carboxyhemoglobin 4.5 (0.0-6.9) % THgb Methemoglobin 0.6 L (1.4-1.5) % Temperature 37.0 C POC O2 Flow Rate 100 % Vent Mode BiPAP Sodium (137-145) mmol/L Potassium 3.6 (3.5-5.1) mmol/L Chloride (98-107) mmol/L Carbon Dioxide (22-30) mmol/L Anion Gap (5-15) MEQ/L BUN (9-20) mg/dL Creatinine (0.66-1.25) mg/dL Estimated GFR ML/MIN Glucose (74-106) mg/dL Lactic Acid 1.1 (0.4-2.0) Calcium (8.4-10.2) mg/dL Total Bilirubin (0.2-1.3) mg/dL AST (17-59) U/L ALT (0-50) U/L Alkaline Phosphatase (38-126) U/L Troponin I 0.041 H* (0.000-0.034) ng/mL NT-Pro-B Natriuret Pep (0-900) pg/mL Serum Total Protein (6.3-8.2) g/dL Albumin (3.5-5.0) g/dL 07/01/18 07/01/18 Range/Units 01:23 01:23 WBC 13.7 H (4.0-10.5) K/mm3 RBC 4.46 (4.1-5.6) M/mm3 Hgb 14.4 (12.5-18.0) gm/dl Hct 44.5 (42-50) % MCV 99.8 (78-100) fl MCH 32.3 H (26-32) pg MCHC 32.4 (32-36) g/dl RDW 15.5 H (11.5-14.0) % Plt Count 438 (150-450) K/mm3 MPV 9.4 (6-9.5) fl PT (8.83-12.87) SECONDS INR (0.8-3.0) APTT (24.1-36.1) SECONDS D-Dimer (215-500) ng/mL Puncture Site pCO2 (35-45) mmHg pO2 (75-100) mmHg Base Excess (-2.0-2.0) O2 Saturation (94-100) g/dF ABG pH (7.35-7.45) ABG HCO3 (22-28) ABG O2 Sat (Measured) (95-100) % Bong Test A-a Gradient a/A Ratio Hemoglobin Carboxyhemoglobin (0.0-6.9) % THgb Methemoglobin (1.4-1.5) % Temperature C POC O2 Flow Rate % Vent Mode Sodium 136 L (137-145) mmol/L Potassium 4.2 (3.5-5.1) mmol/L Chloride 98 (98-107) mmol/L Carbon Dioxide 27 (22-30) mmol/L Anion Gap 15.9 H (5-15) MEQ/L BUN 21 H (9-20) mg/dL Creatinine 1.78 H (0.66-1.25) mg/dL Estimated GFR 39.9 ML/MIN Glucose 235 H (74-106) mg/dL Lactic Acid (0.4-2.0) Calcium 9.0 (8.4-10.2) mg/dL Total Bilirubin 0.70 (0.2-1.3) mg/dL AST 37 (17-59) U/L ALT 26 (0-50) U/L Alkaline Phosphatase 172 H (38-126) U/L Troponin I (0.000-0.034) ng/mL NT-Pro-B Natriuret Pep 6310 H (0-900) pg/mL Serum Total Protein 7.8 (6.3-8.2) g/dL Albumin 4.3 (3.5-5.0) g/dL - Progress Progress: improved Air Movement: fair Progress Note: 07/01/18 03:08Patent is improved, case discussed with Dr Scott ar [facility]. He has accepted patient for transfer. - Departure Departure Disposition: Transfer ([facility]) Clinical Impression: SOB (shortness of breath), Respiratory distress, Elevated d-dimer Pulmonary edema Qualifiers: Chronicity: acute Qualified Code(s): J81.0 - Acute pulmonary edema CHF (congestive heart failure) Qualifiers: Heart failure type: unspecified Heart failure chronicity: unspecified Qualified Code(s): I50.9 - Heart failure, unspecified Condition: Fair Critical Care Time: No Referrals: BELKYS BERRY [Primary Care Provider] - Instructions: Heart Failure
[2018-07-01 01:41] LABS: Hematocrit 44.5 % (42-50); Hemoglobin 14.4 gm/dl (12.5-18.0); Mean Cell Volume 99.8 fl (78-100); Mean Corpuscular Hemoglobin 32.3 pg (26-32); Mean Corpuscular Hgb Concent. 32.4 g/dl (32-36); Mean Platelet Volume 9.4 fl (6-9.5); Platelet Count 438 K/mm3 (150-450); Red Blood Count 4.46 M/mm3 (4.1-5.6); Red Cell Distribution Width 15.5 % (11.5-14.0); White Blood Count 13.7 K/mm3 (4.0-10.5)
[2018-07-01 01:49] LABS: INR 1.26 (0.8-3.0); PROTIME 14.7 SECONDS (8.83-12.87)
[2018-07-01 01:52] LABS: PTT 27.2 SECONDS (24.1-36.1)
[2018-07-01 01:55] LABS: A-aADO2 588; ABG HEMOGLOBIN 13.8; ABG POTASSIUM 3.6 (3.5-5.1); ABG SITE RIGHT RADIAL; ALLEN TEST OK? YES; ARTERIAL BLD GAS O2 SATURATION 96.8 % (95-100); ARTERIAL BLOOD GAS BASE EXCESS 0.5 (-2.0-2.0); ARTERIAL BLOOD GAS FIO2 100 %; ARTERIAL BLOOD GAS PCO2 44 mmHg (35-45); ARTERIAL BLOOD GAS PO2 70 mmHg (75-100); ARTERIAL BLOOD GAS VENT MODE BiPAP; ARTERIAL BLOOD GAS pH 7.38 (7.35-7.45); CARBOXYHEMOGLOBIN 4.5 % THgb (0.0-6.9); HGB O2 SAT 91.9 g/dF (94-100); Lactic Acid 1.1 (0.4-2.0); Methhemoglobin 0.6 % (1.4-1.5); paO2 pAO1 0.11
[2018-07-01] MEDS ORDERED: solu-MEDROL 125 MG IV ONE (02:01)
[2018-07-01 02:04] LABS: ALBUMIN 4.3 g/dL (3.5-5.0); ANION GAP 15.9 MEQ/L (5-15); BILIRUBIN,TOTAL 0.7 mg/dL (0.2-1.3); Creatinine 1 1.78 mg/dL (0.66-1.25); Potassium 4.2 mmol/L (3.5-5.1); Total Protein 7.8 g/dL (6.3-8.2)
[2018-07-01] MEDS ORDERED: BABY ASPIRIN 81 MG CHEW PO ONE (02:29)
[2018-07-01] MEDS ORDERED: BABY ASPIRIN 81 MG CHEW ONE (03:02)
[2018-07-01] MEDS ORDERED: solu-MEDROL 125 MG ONE (03:02)
[2018-07-01] MEDS ORDERED: Lasix 40 MG/4 ML ONE (03:02)
[2018-07-01 03:42] VITALS: BP 97/58; PULSE 86; O2SAT 98
[2018-07-01 06:33] LABS: Eosinophil 4 % (0.00-3.0); Lymphocytes 18 % (24-44); Monocyte 5 % (0.0-12.0); Neutrophils 73 % (36.-66.); Total Cells Counted 100
[2018-07-01 06:34] LABS: ANISOCYTOSIS 1+; Platelet Estimate NORMAL (NORMAL); Poikilocytosis 1+; Polychromasia 1+
--- NOTE | 2018-07-01 09:00 | XRAY ---
Indication: Short of breath. Comparison: June 25, 2018. Portable chest demonstrates slight worsening bilateral airspace disease now more diffuse in the right lung with new right base consolidation and tiny effusions. Heart and mediastinal structures within normal limits.
== END 2018-07-01 04:05 | disposition short-term general hospital (02) ==
LOC: ED 01:20
DX: J81.0 Acute pulmonary edema (principal); I50.9 Heart failure, unspecified; R06.02 Shortness of breath; I25.10 Atherosclerotic heart disease of native coronary artery without angina pectoris; J44.9 Chronic obstructive pulmonary disease, unspecified; J45.909 Unspecified asthma, uncomplicated; I25.2 Old myocardial infarction; Z79.899 Other long term (current) drug therapy
CPT/HCPCS: 36415; 36600; 51702; 71045; 80053; 82375; 82803; 83605; 83880; 84484; 85025; 85379; 85610; 85730; 87040; 93005; 93041; 94002; 96374; 96375; 99285; J1940; J2930; A9270-GY

== ENCOUNTER 2018-07-12 06:14 | Emergency (ER) | payer MEDICARE ==
[2018-07-12] MEDS ORDERED: Lasix 40 MG/4 ML IV ONE (06:27)
[2018-07-12] MEDS ORDERED: NITRO-BID 2% UD PACKETS TOP ONE (06:27)
[2018-07-12] MEDS ORDERED: NITRO-BID 2% UD PACKETS ONE (06:48)
[2018-07-12] MEDS ORDERED: Lasix 40 MG/4 ML ONE (06:48)
[2018-07-12 06:51] LABS: BASOPHIL % 1.1 % (0.0-0.4); Basophil (Absolute #) 0.06 (0-0.4); Eosinophil % 26.2 % (0.00-5.0); Eosinophil (Absolute #) 1.47 (0-0.5); Granulocyte Absolute (ANC) 2.44 (1.4-6.9); Granulocytes % 43.4 % (36.0-66.0); Hematocrit 34.2 % (42-50); Hemoglobin 11.1 gm/dl (12.5-18.0); Lymphocyte (Absolute #) 1.16 (1.0-4.6); Lymphocytes % 20.6 % (24.0-44.0); Mean Cell Volume 98.8 fl (78-100); Mean Corpuscular Hgb Concent. 32.5 g/dl (32-36); Mean Platelet Volume 9.2 fl (6-9.5); Monocyte (Absolute #) 0.49 (0.0-1.3); Monocytes % 8.7 % (0.0-12.0); Platelet Count 274 K/mm3 (150-450); Red Blood Count 3.46 M/mm3 (4.1-5.6); Red Cell Distribution Width 14.9 % (11.5-14.0); White Blood Count 5.6 K/mm3 (4.0-10.5)
[2018-07-12] MEDS ORDERED: Sodium Chloride 0.9% 500 ML 500 ML IV ONE ×2 (06:58→07:03)
[2018-07-12 07:05] VITALS: O2SAT 98
[2018-07-12 07:11] LABS: ALBUMIN 3.7 g/dL (3.5-5.0); ANION GAP 12.6 MEQ/L (5-15); BILIRUBIN,TOTAL 0.8 mg/dL (0.2-1.3); Calcium 8.6 mg/dL (8.4-10.2); Creatinine 1 1.66 mg/dL (0.66-1.25); Potassium 3.8 mmol/L (3.5-5.1); Total Protein 6.5 g/dL (6.3-8.2)
--- NOTE | 2018-07-12 07:27 | ERPHSYRPT ---
- History of Present Illness Time Seen by Provider: 07/12/18 07:23 Source: patient Exam Limitations: no limitations Patient Subjective Stated Complaint: pt states he has been short of breath since waking up this morning. states he has been in the hosp mult times with chf since he had a heart attack in february. states he has sob, increase cough, and 3lb weight gain since yesterday Triage Nursing Assessment: pt alert and oreinted, asnwers questions approp. pt ambulatory with steady gait noted. respirations nonlabored. lungs cta bilat. skin pink warm and dry. Physician History: 72 year old white male arrives with complaint of shortness of breath since this am, tamiko chest pain . Patient with orders initially put in by Dr Kasper but patient noted to have low blood pressure, patient denies fever . currently with blood pressure 67/46 but patient does not appear to be in distress. Past medical history includes CHF, coronary disease, myocardial infarction, asthma, COPD, pneumonia Past surgical history includes appendectomy, hernia repair, back surgery, lumbar disc surgery Timing/Duration: today Activities at Onset: rest Severity of Dyspnea-Max: moderate Severity of Dyspnea-Current: mild Possible Cause: frequent episodes Associated Symptoms: No anxiety, No cough, No chest pain/discomfort, No edema, No fever, No insomnia, No loss of appetite, No lightheadedness, No wheezing, No weakness, No ankle swelling, No chills, No hemoptysis, No calf pain, No dizziness, No heaviness, No heart racing, No lightheadedness, No leg swelling, No muscle spasms feet, No muscle spasms hands, No painful breathing, No productive cough, No sweating, No tightness, No tingling face, No tingling hands Allergies/Adverse Reactions: No Known Drug Allergies Allergy (Verified 07/12/18 06:38) Home Medications: Atorvastatin Calcium [Lipitor] 80 mg PO DAILY 04/22/18 [History] Carvedilol 3.125 mg [Coreg 3.125 MG] 1.562 mg PO BID 04/22/18 [History] Famotidine 20 mg PO DAILY 04/22/18 [History] Trazodone HCl 150 mg PO DAILY PRN 04/22/18 [History] Albuterol 8 gm Mdi Hfa [Ventolin Hfa MDI] 90 mcg IH Q4HPRN PRN 06/25/18 [ History] Alprazolam 0.25 mg [xanAX 0.25 MG] 0.125 mg PO BID 06/25/18 [History] Amiodarone HCl 200 mg [Cordarone 200 MG] 200 mg PO DAILY 06/25/18 [History ] Apixaban [Eliquis] 5 mg PO BID 06/25/18 [History] Bumetanide 1 mg [Bumex 1 mg] 1 mg PO BID 06/25/18 [History] Clopidogrel Bisulfate 75 mg [PLAVIX 75 MG Tablet] 75 mg PO DAILY 06/25/18 [History] Ipratropium/Albuterol Sulfate [Iprat-Albut 0.5-3(2.5) mg/3 ml] 3 ml IH QIDPRN PRN 06/25/18 [History] Multivitamin W-Minerals/Lutein [Centrum Silver Tablet] 1 each PO HS 06/25/18 [ History] Sacubitril/Valsartan [Entresto 24 mg-26 mg Tablet] 0.5 each PO BID 06/25/18 [ History] Spironolactone 25 mg [Aldactone 25 MG] 12.5 mg PO 1700 06/25/18 [History] Hx Tetanus, Diphtheria Vaccination/Date Given: Yes Hx Influenza Vaccination/Date Given: Yes Hx Pneumococcal Vaccination/Date Given: No Immunizations Up to Date: Yes - Review of Systems Constitutional: No Fever, No Chills Eyes: No Symptoms Ears, Nose, & Throat: No Symptoms Respiratory: Dyspnea, No Cough, No Cyanosis, No Dyspnea on Exertion (FOSTER), No Stridor, No Wheezing Cardiac: No Symptoms Abdominal/Gastrointestinal: No Abdominal Pain, No Nausea, No Vomiting, No Diarrhea Genitourinary Symptoms: No Dysuria Musculoskeletal: No Back Pain, No Neck Pain Skin: No Rash Neurological: No Dizziness, No Focal Weakness, No Sensory Changes Psychological: No Symptoms Endocrine: No Symptoms All Other Systems: Reviewed and Negative - Past Medical History Pertinent Past Medical History: Yes Neurological History: No Pertinent History ENT History: No Pertinent History Cardiac History: Congestive Heart Failure, Coronary Artery Disease, Myocardial Infarction ([place]) Respiratory History: Asthma, CHF, COPD, Pneumonia Endocrine Medical History: No Pertinent History Musculoskeletal History: No Pertinent History GI Medical History: No Pertinent History History: No Pertinent History Psycho-Social History: No Pertinent History Male Reproductive Disorders: No Pertinent History Other Medical History: [facility] since february for chf - Past Surgical History Past Surgical History: Yes Neuro Surgical History: No Pertinent History Cardiac: Cardiac Stent Respiratory: No Pertinent History Gastrointestinal: Appendectomy, Hernia Repair Genitourinary: No Pertinent History Musculoskeletal: No Pertinent History Male Surgical History: No Pertinent History Other Surgical History: back surgery (lumbar disc replacements); currently has hernia that needs repair - Social History Smoking Status: Former smoker How long have you smoked: 50 yr Exposure to second hand smoke: No Drug Use: none Patient Lives Alone: No - Nursing Vital Signs Nursing Vital Signs: Initial Vital Signs Temperature 97.4 F 07/12/18 06:16 Pulse Rate 79 07/12/18 06:16 Respiratory Rate 20 07/12/18 06:16 Blood Pressure 110/68 07/12/18 06:16 O2 Sat by Pulse Oximetry 100 07/12/18 06:16 Pain Scale Pain Intensity 0 - Physical Exam General Appearance: no apparent distress, alert Eye Exam: PERRL/EOMI Ears, Nose, Throat Exam: hearing grossly normal, normal ENT inspection, normal pharynx, No abnormal TM (R), No abnormal TM (L), No sinus pain/drainage, No hearing decreased Neck Exam: normal inspection, supple Respiratory Exam: diminished breath sounds, No chest tenderness, No respiratory distress, No prolonged expirations, No crackles/rales, No rhonchi, No wheezing, No stridor, No pleural rub Cardiovascular/Chest Exam: normal heart sounds, regular rate/rhythm Abdominal/Gastrointestinal Exam: soft, No tenderness, No distention, No mass Extremity Exam: non-tender, normal range of motion, normal inspection, no calf tenderness, no pedal edema Peripheral Pulses Exam: dorsalis-pedis (R): 2+, dorsalis-pedis (L): 2+ Neurologic Exam: alert, oriented x 3, cooperative, tax accounting manager II-XII nml as tested, sensation nml, No motor deficits Skin Exam: normal color, warm, No dry SpO2 Interpretation: normal (98%) SpO2: 98 - Course Nursing assessment & vital signs reviewed: Yes EKG Interpreted by Me: RATE (66 bpm), Sinus Rhythm, Left [place] Deviation, Other ( EKG: Sinus rhythm, 66 bpm, left axis deviation, no acute ST or T wave changes noted) - Radiology Exams Chest X-ray Interpretation: Interpreted by me (chest x-ray: Impression: Chronic increased interstitial lung markings improved from July 01, 2018) Ordered Tests: Active Orders 24 hr Category Date Time Status EKG-ER Only STAT Care 07/12/18 06:27 Active CHEST 1 VIEW (PORTABLE) Stat Exams 07/12/18 07:24 Taken CBC W DIFF Stat Lab 07/12/18 06:40 Completed CMP Stat Lab 07/12/18 06:40 Completed NT PRO BNP Stat Lab 07/12/18 06:40 Completed TROPONIN Q3H Lab 07/12/18 06:40 Completed TROPONIN Q3H Lab 07/12/18 09:30 Completed TROPONIN Q3H Lab 07/12/18 12:30 Ordered TROPONIN Q3H Lab 07/12/18 15:30 Ordered TROPONIN Q3H Lab 07/12/18 18:30 Ordered UA W/RFX UR CULTURE Stat Lab 07/12/18 10:24 Completed Medication Summary Discontinued Medications Generic Name Dose Route Start Last Admin Trade Name Freq PRN Reason Stop Dose Admin Furosemide 40 mg 07/12/18 06:27 07/12/18 10:27 Lasix 40 Mg/4 Ml IV 07/12/18 06:28 Not Given STAT ONE Furosemide Confirm 07/12/18 06:48 Lasix 40 Mg/4 Ml Administered 07/12/18 06:49 Dose 40 mg .ROUTE .STK-MED ONE Sodium Chloride Confirm 07/12/18 06:58 Sodium Chloride 0.9% 500 Ml Administered 07/12/18 06:59 Dose 500 mls @ ud IV .STK-MED ONE Sodium Chloride 500 mls @ 500 mls/hr 07/12/18 07:03 07/12/18 10:28 Sodium Chloride 0.9% 500 Ml IV 07/12/18 08:02 Infused .Q1H ONE Infusion Nitroglycerin 1 gm 07/12/18 06:27 07/12/18 10:27 Nitro-Bid 2% Ud Packets TOP 07/12/18 06:28 Not Given STAT ONE Nitroglycerin Confirm 07/12/18 06:48 Nitro-Bid 2% Ud Packets Administered 07/12/18 06:49 Dose 1 gm .ROUTE .STK-MED ONE Lab/Rad Data: Laboratory Result Diagrams 07/12/18 06:40 07/12/18 06:40 Laboratory Results 07/12/18 07/12/18 07/12/18 Range/Units 10:24 09:30 06:40 WBC (4.0-10.5) K/mm3 RBC (4.1-5.6) M/mm3 Hgb (12.5-18.0) gm/dl Hct (42-50) % MCV (78-100) fl MCH (26-32) pg MCHC (32-36) g/dl RDW (11.5-14.0) % Plt Count (150-450) K/mm3 MPV (6-9.5) fl Gran % (36.0-66.0) % Eos # (Auto) (0-0.5) Absolute Lymphs (auto) (1.0-4.6) Absolute Monos (auto) (0.0-1.3) Lymphocytes % (24.0-44.0) % Monocytes % (0.0-12.0) % Eosinophils % (0.00-5.0) % Basophils % (0.0-0.4) % Absolute Granulocytes (1.4-6.9) Basophils # (0-0.4) Sodium (137-145) mmol/L Potassium (3.5-5.1) mmol/L Chloride (98-107) mmol/L Carbon Dioxide (22-30) mmol/L Anion Gap (5-15) MEQ/L BUN (9-20) mg/dL Creatinine (0.66-1.25) mg/dL Estimated GFR ML/MIN Glucose (74-106) mg/dL Calcium (8.4-10.2) mg/dL Total Bilirubin (0.2-1.3) mg/dL AST (17-59) U/L ALT (0-50) U/L Alkaline Phosphatase (38-126) U/L Troponin I 0.023 0.028 (0.000-0.034) ng/mL NT-Pro-B Natriuret Pep (0-900) pg/mL Serum Total Protein (6.3-8.2) g/dL Albumin (3.5-5.0) g/dL Urine Color STRAW (YELLOW) Urine Appearance CLEAR (CLEAR) Urine pH 7.0 (5-6) Ur Specific [place] 1.003 (1.005-1.025) Urine Protein NEGATIVE (Negative) Urine Ketones NEGATIVE (NEGATIVE) Urine Blood NEGATIVE (0-5) Chip/ul Urine Nitrite NEGATIVE (NEGATIVE) Urine Bilirubin NEGATIVE (NEGATIVE) Urine Urobilinogen NEGATIVE (0-1) mg/dL Ur Leukocyte Esterase TRACE (NEGATIVE) Urine WBC (Auto) 3-5 (0-5) /HPF U Epithel Cells (Auto) NONE (FEW) /HPF Urine Culture Reflexed NO (NO) Urine Glucose NEGATIVE (NEGATIVE) mg/dL 07/12/18 07/12/18 Range/Units 06:40 06:40 WBC 5.6 (4.0-10.5) K/mm3 RBC 3.46 L (4.1-5.6) M/mm3 Hgb 11.1 L (12.5-18.0) gm/dl Hct 34.2 L (42-50) % MCV 98.8 (78-100) fl MCH 32.0 (26-32) pg MCHC 32.5 (32-36) g/dl RDW 14.9 H (11.5-14.0) % Plt Count 274 (150-450) K/mm3 MPV 9.2 (6-9.5) fl Gran % 43.4 (36.0-66.0) % Eos # (Auto) 1.47 H (0-0.5) Absolute Lymphs (auto) 1.16 (1.0-4.6) Absolute Monos (auto) 0.49 (0.0-1.3) Lymphocytes % 20.6 L (24.0-44.0) % Monocytes % 8.7 (0.0-12.0) % Eosinophils % 26.2 H (0.00-5.0) % Basophils % 1.1 (0.0-0.4) % Absolute Granulocytes 2.44 (1.4-6.9) Basophils # 0.06 (0-0.4) Sodium 131 L (137-145) mmol/L Potassium 3.8 (3.5-5.1) mmol/L Chloride 92 L (98-107) mmol/L Carbon Dioxide 30 (22-30) mmol/L Anion Gap 12.6 (5-15) MEQ/L BUN 19 (9-20) mg/dL Creatinine 1.66 H (0.66-1.25) mg/dL Estimated GFR 43.3 ML/MIN Glucose 106 (74-106) mg/dL Calcium 8.6 (8.4-10.2) mg/dL Total Bilirubin 0.80 (0.2-1.3) mg/dL AST 31 (17-59) U/L ALT 22 (0-50) U/L Alkaline Phosphatase 116 (38-126) U/L Troponin I (0.000-0.034) ng/mL NT-Pro-B Natriuret Pep 4000 H (0-900) pg/mL Serum Total Protein 6.5 (6.3-8.2) g/dL Albumin 3.7 (3.5-5.0) g/dL Urine Color (YELLOW) Urine Appearance (CLEAR) Urine pH (5-6) Ur Specific [place] (1.005-1.025) Urine Protein (Negative) Urine Ketones (NEGATIVE) Urine Blood (0-5) Chip/ul Urine Nitrite (NEGATIVE) Urine Bilirubin (NEGATIVE) Urine Urobilinogen (0-1) mg/dL Ur Leukocyte Esterase (NEGATIVE) Urine WBC (Auto) (0-5) /HPF U Epithel Cells (Auto) (FEW) /HPF Urine Culture Reflexed (NO) Urine Glucose (NEGATIVE) mg/dL - Progress Progress: improved Air Movement: fair Progress Note: 07/12/18 07:30 72-year-old white male who apparently had orders placed by Dr. Kasper prior to my arrival arrives this morning with complaint of shortness of breath and noted to have a 3 pound weight gain since yesterday. Patient does have a history of congestive heart failure coronary artery disease myocardial infarction asthma, COPD pneumonia. Patient initially with the blood pressure of 110/68 and orders were placed by Dr. Kasper for nitroglycerin and Lasix however patient was noted to have a blood pressure of 66/47 subsequently patient currently does not appear to be acute in acute distress he he does have a low blood pressure this has been reverified. His lungs are with diminished breath sounds.. He has a history of frequent presentation secondary to severe shortness of breath and congestive heart failure with pulmonary edema in the past Past medical history includes congestive heart failure, coronary artery disease , myocardial infarction, asthma, COPD, pneumonia past surgical history includes appendectomy, hernia repair, back surgery, lumbar disc surgery Physical examination HEENT within normal limits. Neck is supple. Lungs are clear. Heart regular rate and rhythm without murmur. Abdomen soft nontender nondistended positive bowel sounds. Extremities full range of motion pulse equal symmetrical 2 over 4. Neuro cranial nerves II through XII are intact DTRs symmetrical 2 over 4 Eveline Coma Scale is 15. EKG sinus rhythm, 66 bpm, left axis deviation, no acute ST or T wave changes CBC white blood cell 5.6 hemoglobin 11.1 hematocrit 34.2 platelets 274 chemistry sodium 131 potassium 3.8 chloride 92 bicarbonate 30 BUN 19 creatinine 1.66 glucose 106 BNP is 4000 Chest x-ray is pending Impression 1 shortness of breath. 2 history of CHF. 3 hypotension plan awaiting chest x-ray results. Patient does state that he has run blood pressures as low as 70 systolic in the past and his cardiac physician is aware of this. Patient was ordered 500 mL of normal saline by Dr. Kasper. Will review chest x-ray and vitals away troponin reevaluate after IV saline bolus has been instilled.. Patient's chest x-ray is reviewed it shows chronic increased interstitial markings. Patient actually states he is feeling well and wants to go home. I was concerned over the patient's blood pressure. I contacted Dr. Zuñiga who is superintendent container terminal for Dr. Barron. 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 He is to follow-up with Dr. Barron Saturday. He is to call 911 or return for acute distress or for severe symptoms. Will await patient's urinalysis plan to discharge. Patient is doing well still waiting patient's urine. Patient's urine is essentially unremarkable patient is doing well. Will discharge patient he is to hold tonight's dose of carvedilol and also his dose of Bumex for tonight. Patient to resume his regular medicines tomorrow. . 07/12/18 07:54 07/12/18 10:24 07/12/18 10:46 - Departure Departure Disposition: Home Clinical Impression: Shortness of breath, History of congestive heart failure, Hypotension Condition: Fair Critical Care Time: No Referrals: BELKYS BERRY [Primary Care Provider] - Additional Instructions: Return home. Hold tonight's dose of carvedilol and hold tonight's dose of Bumex. Resume medications tomorrow. Follow-up with your platform architect Saturday (call) Return for acute distress or for severe symptoms or for any problems.
[2018-07-12 10:35] LABS: Appearance CLEAR (CLEAR); Bilirubin NEGATIVE (NEGATIVE); Blood NEGATIVE Ery/ul (0-5); Glucose NEGATIVE (NEGATIVE); Ketones NEGATIVE (NEGATIVE); Leukocyte Esterase TRACE (NEGATIVE); Nitrite NEGATIVE (NEGATIVE); Protein,Urine Dip NEGATIVE (Negative); Specific Gravity 1.003 (1.005-1.025); Urobilinogen NEGATIVE mg/dL (0-1)
[2018-07-12 10:40] VITALS: BP 81/50; PULSE 59
--- NOTE | 2018-07-15 10:32 | XRAY ---
Indication: Short of breath. Hypotension. Comparison: July 01, 2018. Portable chest demonstrates clearing of the previous bilateral airspace opacities with probable minimal residual in the right base. Heart is not enlarged. No new cardiopulmonary abnormalities.
== END 2018-07-12 11:02 | disposition home health service (06) ==
LOC: ED 06:14
DX: R06.02 Shortness of breath (principal); I50.9 Heart failure, unspecified; I95.9 Hypotension, unspecified; I25.10 Atherosclerotic heart disease of native coronary artery without angina pectoris; J44.9 Chronic obstructive pulmonary disease, unspecified; J45.909 Unspecified asthma, uncomplicated; I25.2 Old myocardial infarction; Z79.01 Long term (current) use of anticoagulants; Z79.899 Other long term (current) drug therapy
CPT/HCPCS: 36415; 71045; 80053; 81001; 83880; 84484; 85025; 93005; 96360; 99284; J1940; A9270-GY

== ENCOUNTER 2018-07-12 20:58 | Emergency (ER) | payer MEDICARE ==
[2018-07-12] MEDS ORDERED: DUONEB 0.5-3 MG/3 ml Neb IH ONE ×2 (21:05→21:10)
[2018-07-12] MEDS ORDERED: Ativan 2 MG/1 ML VIAL IV ONE (21:10)
[2018-07-12] MEDS ORDERED: HYDROCODONE-ACETAMIN 2.5-108/5 ML SOLUTION PO STA (21:12)
[2018-07-12 21:18] LABS: BASOPHIL % 0.6 % (0.0-0.4); Basophil (Absolute #) 0.08 (0-0.4); Eosinophil % 10.9 % (0.00-5.0); Eosinophil (Absolute #) 1.36 (0-0.5); Granulocyte Absolute (ANC) 7.98 (1.4-6.9); Granulocytes % 63.7 % (36.0-66.0); Hematocrit 39.6 % (42-50); Lymphocyte (Absolute #) 2.48 (1.0-4.6); Lymphocytes % 19.8 % (24.0-44.0); Mean Cell Volume 98.3 fl (78-100); Mean Corpuscular Hgb Concent. 32.8 g/dl (32-36); Mean Platelet Volume 9.4 fl (6-9.5); Monocyte (Absolute #) 0.63 (0.0-1.3); Platelet Count 348 K/mm3 (150-450); Red Blood Count 4.03 M/mm3 (4.1-5.6); Red Cell Distribution Width 14.9 % (11.5-14.0); White Blood Count 12.5 K/mm3 (4.0-10.5)
--- NOTE | 2018-07-12 21:19 | ERPHSYRPT ---
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 pt has severe hx of CHF with mutiple admissions in the last few months with frequent hypoxia. pt was seen here in ed this am for sob but was not hypoxic at that time. Triage Nursing Assessment: Agffney/warm/dry, increased resp effort, wheeled to room able to stand to bed, a&ox4, pt hypoxic on room air. nc placed at 4lpm. Physician History: 72 y/o white male with h/o chf, copd and cadz returns to this ED from earlier evaluation this am. 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 pt is a recent , recent myocardial infarction, lives alone, and has anxiety issues. earlier today all labs, ekg and cxr results. based on those results, telecommunications operator stated pt may be discharged to home. Timing/Duration: today, sudden (5 minutes machine captain) Cough Quality/Degree: mild, dry cough Possible Cause: frequent episodes Modifying Factors: Improves With: coughing Associated Symptoms: cough, shortness of breath, No fever, No chest pain/ soreness Allergies/Adverse Reactions: No Known Drug Allergies Allergy (Verified 07/12/18 21:03) Home Medications: Atorvastatin Calcium [Lipitor] 80 mg PO DAILY 04/22/18 [History] Carvedilol 3.125 mg [Coreg 3.125 MG] 1.562 mg PO BID 04/22/18 [History] Famotidine 20 mg PO DAILY 04/22/18 [History] Trazodone HCl 150 mg PO DAILY PRN 04/22/18 [History] Albuterol 8 gm Mdi Hfa [Ventolin Hfa MDI] 90 mcg IH Q4HPRN PRN 06/25/18 [ History] Alprazolam 0.25 mg [xanAX 0.25 MG] 0.125 mg PO BID 06/25/18 [History] Amiodarone HCl 200 mg [Cordarone 200 MG] 200 mg PO DAILY 06/25/18 [History ] Apixaban [Eliquis] 5 mg PO BID 06/25/18 [History] Bumetanide 1 mg [Bumex 1 mg] 1 mg PO BID 06/25/18 [History] Clopidogrel Bisulfate 75 mg [PLAVIX 75 MG Tablet] 75 mg PO DAILY 06/25/18 [History] Ipratropium/Albuterol Sulfate [Iprat-Albut 0.5-3(2.5) mg/3 ml] 3 ml IH QIDPRN PRN 06/25/18 [History] Multivitamin W-Minerals/Lutein [Centrum Silver Tablet] 1 each PO HS 06/25/18 [ History] Sacubitril/Valsartan [Entresto 24 mg-26 mg Tablet] 0.5 each PO BID 06/25/18 [ History] Spironolactone 25 mg [Aldactone 25 MG] 12.5 mg PO 1700 06/25/18 [History] Hx Tetanus, Diphtheria Vaccination/Date Given: Yes Hx Influenza Vaccination/Date Given: Yes Hx Pneumococcal Vaccination/Date Given: Yes Immunizations Up to Date: Yes - Review of Systems Constitutional: No Symptoms Eyes: No Symptoms Ears, Nose, & Throat: No Symptoms Respiratory: Cough, Dyspnea Cardiac: No Symptoms Abdominal/Gastrointestinal: No Symptoms Genitourinary Symptoms: No Symptoms Musculoskeletal: No Symptoms Skin: No Symptoms Neurological: No Symptoms Psychological: No Symptoms Endocrine: No Symptoms Hematologic/Lymphatic: No Symptoms Immunological/Allergic: No Symptoms All Other Systems: Reviewed and Negative - Past Medical History Pertinent Past Medical History: Yes Neurological History: No Pertinent History ENT History: No Pertinent History Cardiac History: Congestive Heart Failure, Coronary Artery Disease, Myocardial Infarction ([place]) Respiratory History: Asthma, CHF, COPD, Pneumonia Endocrine Medical History: No Pertinent History Musculoskeletal History: No Pertinent History GI Medical History: No Pertinent History History: No Pertinent History Psycho-Social History: No Pertinent History Male Reproductive Disorders: No Pertinent History Other Medical History: [facility] since february for chf - Past Surgical History Past Surgical History: Yes Neuro Surgical History: No Pertinent History Cardiac: Cardiac Stent Respiratory: No Pertinent History Gastrointestinal: Appendectomy, Hernia Repair Genitourinary: No Pertinent History Musculoskeletal: No Pertinent History Male Surgical History: No Pertinent History Other Surgical History: back surgery (lumbar disc replacements); currently has hernia that needs repair - Social History Smoking Status: Former smoker How long have you smoked: 50 yr Exposure to second hand smoke: No Drug Use: none Patient Lives Alone: Yes - Nursing Vital Signs Nursing Vital Signs: Initial Vital Signs Temperature 97.7 F 07/12/18 21:05 Pulse Rate 101 H 07/12/18 21:05 Respiratory Rate 36 H 07/12/18 21:05 Blood Pressure 147/96 07/12/18 21:05 O2 Sat by Pulse Oximetry 86 L 07/12/18 21:05 Pain Scale Pain Intensity 0 - Physical Exam General Appearance: mild distress, anxiety Eye Exam: PERRL/EOMI, eyes nml inspection Ears, Nose, Throat Exam: normal ENT inspection, moist mucous membranes Neck Exam: normal inspection, non-tender, supple, full range of motion Respiratory Exam: normal breath sounds, lungs clear, respiratory distress ( anxiety), airway intact, No chest tenderness Cardiovascular Exam: regular rate/rhythm, normal heart sounds, normal peripheral pulses Gastrointestinal/Abdomen Exam: soft, normal bowel sounds, No tenderness, No guarding Rectal Exam: not done Back Exam: normal inspection, normal range of motion, No CVA tenderness Extremity Exam: normal inspection, normal range of motion, pelvis stable Neurologic Exam: alert, oriented x 3, cooperative, community leader II-XII nml as tested Skin Exam: normal color, warm, dry Lymphatic Exam: adenopathy SpO2 Interpretation: hypoxic SpO2: 86 O2 Delivery: Room Air - Course Nursing assessment & vital signs reviewed: Yes EKG Interpreted by Me: RATE (99), Sinus Rhythm, Right Bundle Branch Block, Other (comparison ekg 07/12/18 @0629 new prolonged qrs,, resolved left ant fasciular ) Ordered Tests: Active Orders 24 hr Category Date Time Status CO2 Monitoring STAT Care 07/12/18 21:10 Active Online Communications Specialist STAT Care 07/12/18 21:11 Active EKG-ER Only STAT Care 07/12/18 21:10 Active IV Insertion STAT Care 07/12/18 21:10 Active CHEST 1 VIEW (PORTABLE) Stat Exams 07/12/18 21:11 Taken ARTERIAL BLOOD GASES Stat Lab 07/12/18 21:26 Completed CBC W DIFF Stat Lab 07/12/18 21:17 Completed CMP Stat Lab 07/12/18 21:17 Completed NT PRO BNP Stat Lab 07/12/18 21:17 Completed PROTIME WITH INR Stat Lab 07/12/18 21:17 Completed TROPONIN Q3H Lab 07/12/18 21:17 Completed TROPONIN Q3H Lab 07/13/18 00:15 Ordered TROPONIN Q3H Lab 07/13/18 03:15 Ordered TROPONIN Q3H Lab 07/13/18 06:15 Ordered TROPONIN Q3H Lab 07/13/18 09:15 Ordered BiPap/CPAP STAT RT 07/12/18 21:15 Active Respiratory Nebulizer STAT RT 07/12/18 21:12 Completed Respiratory Therapy Assessment DAILY RT 07/12/18 23:42 Active Medication Summary Discontinued Medications Generic Name Dose Route Start Last Admin Trade Name Freq PRN Reason Stop Dose Admin Hydrocodone Bitart/Acetaminophen 10 ml 07/12/18 21:12 07/12/18 21:23 Hydrocodone-Acetamin 2.5-108/5 Ml Solution PO 07/12/18 21:13 10 ml STAT STA Administration Hydrocodone Bitart/Acetaminophen Confirm 07/12/18 21:22 Hydrocodone-Acetamin 2.5-108/5 Ml Solution Administered 07/12/18 21:23 Dose 10 ml .ROUTE .STK-MED ONE Albuterol/Ipratropium Confirm 07/12/18 21:05 Duoneb 0.5-3 Mg/3 Ml Neb Administered 07/12/18 21:06 Dose 3 ml IH .STK-MED ONE Albuterol/Ipratropium 3 ml 07/12/18 21:10 07/12/18 21:15 Duoneb 0.5-3 Mg/3 Ml Neb IH 07/12/18 21:11 3 ml STAT ONE Administration Furosemide 40 mg 07/12/18 22:02 07/12/18 22:35 Lasix 40 Mg/4 Ml IV 07/12/18 22:03 40 mg STAT ONE Administration Furosemide Confirm 07/12/18 22:34 Lasix 40 Mg/4 Ml Administered 07/12/18 22:35 Dose 40 mg .ROUTE .STK-MED ONE Lorazepam 0.5 mg 07/12/18 21:10 07/12/18 21:23 Ativan 2 Mg/1 Ml Vial IV 07/12/18 21:11 0.5 mg STAT ONE Administration Lorazepam Confirm 07/12/18 21:22 Ativan 2 Mg/1 Ml Vial Administered 07/12/18 21:23 Dose 2 mg .ROUTE .STK-MED ONE Lab/Rad Data: Laboratory Result Diagrams 07/12/18 21:17 07/12/18 21:17 Laboratory Results 07/12/18 07/12/18 07/12/18 Range/Units 21:26 21:17 21:17 WBC (4.0-10.5) K/mm3 RBC (4.1-5.6) M/mm3 Hgb (12.5-18.0) gm/dl Hct (42-50) % MCV (78-100) fl MCH (26-32) pg MCHC (32-36) g/dl RDW (11.5-14.0) % Plt Count (150-450) K/mm3 MPV (6-9.5) fl Gran % (36.0-66.0) % Eos # (Auto) (0-0.5) Absolute Lymphs (auto) (1.0-4.6) Absolute Monos (auto) (0.0-1.3) Lymphocytes % (24.0-44.0) % Monocytes % (0.0-12.0) % Eosinophils % (0.00-5.0) % Basophils % (0.0-0.4) % Absolute Granulocytes (1.4-6.9) Basophils # (0-0.4) PT 15.2 H (8.83-12.87) SECONDS INR 1.30 (0.8-3.0) Puncture Site LEFT RADIAL pCO2 38 (35-45) mmHg pO2 48 L* (75-100) mmHg Base Excess -2.3 L (-2.0-2.0) O2 Saturation 83.9 L (94-100) g/dF ABG pH 7.38 (7.35-7.45) ABG HCO3 22.5 (22-28) ABG O2 Sat (Measured) 88.8 L (95-100) % Bong Test YES A-a Gradient 161 a/A Ratio 0.23 Hemoglobin 13.3 Carboxyhemoglobin 4.9 (0.0-6.9) % THgb Methemoglobin 0.6 L (1.4-1.5) % Temperature 37.0 C POC O2 Flow Rate 36 % Sodium (137-145) mmol/L Potassium 3.9 (3.5-5.1) mmol/L Chloride (98-107) mmol/L Carbon Dioxide (22-30) mmol/L Anion Gap (5-15) MEQ/L BUN (9-20) mg/dL Creatinine (0.66-1.25) mg/dL Estimated GFR ML/MIN Glucose (74-106) mg/dL Calcium (8.4-10.2) mg/dL Total Bilirubin (0.2-1.3) mg/dL AST (17-59) U/L ALT (0-50) U/L Alkaline Phosphatase (38-126) U/L Troponin I 0.024 (0.000-0.034) ng/mL NT-Pro-B Natriuret Pep (0-900) pg/mL Serum Total Protein (6.3-8.2) g/dL Albumin (3.5-5.0) g/dL 07/12/18 07/12/18 Range/Units 21:17 21:17 WBC 12.5 H (4.0-10.5) K/mm3 RBC 4.03 L (4.1-5.6) M/mm3 Hgb 13.0 (12.5-18.0) gm/dl Hct 39.6 L (42-50) % MCV 98.3 (78-100) fl MCH 32.2 H (26-32) pg MCHC 32.8 (32-36) g/dl RDW 14.9 H (11.5-14.0) % Plt Count 348 (150-450) K/mm3 MPV 9.4 (6-9.5) fl Gran % 63.7 (36.0-66.0) % Eos # (Auto) 1.36 H (0-0.5) Absolute Lymphs (auto) 2.48 (1.0-4.6) Absolute Monos (auto) 0.63 (0.0-1.3) Lymphocytes % 19.8 L (24.0-44.0) % Monocytes % 5.0 (0.0-12.0) % Eosinophils % 10.9 H (0.00-5.0) % Basophils % 0.6 (0.0-0.4) % Absolute Granulocytes 7.98 H (1.4-6.9) Basophils # 0.08 (0-0.4) PT (8.83-12.87) SECONDS INR (0.8-3.0) Puncture Site pCO2 (35-45) mmHg pO2 (75-100) mmHg Base Excess (-2.0-2.0) O2 Saturation (94-100) g/dF ABG pH (7.35-7.45) ABG HCO3 (22-28) ABG O2 Sat (Measured) (95-100) % Bong Test A-a Gradient a/A Ratio Hemoglobin Carboxyhemoglobin (0.0-6.9) % THgb Methemoglobin (1.4-1.5) % Temperature C POC O2 Flow Rate % Sodium 132 L (137-145) mmol/L Potassium 4.0 (3.5-5.1) mmol/L Chloride 93 L (98-107) mmol/L Carbon Dioxide 25 (22-30) mmol/L Anion Gap 18.2 H (5-15) MEQ/L BUN 19 (9-20) mg/dL Creatinine 1.65 H (0.66-1.25) mg/dL Estimated GFR 43.6 ML/MIN Glucose 147 H (74-106) mg/dL Calcium 8.9 (8.4-10.2) mg/dL Total Bilirubin 0.70 (0.2-1.3) mg/dL AST 35 (17-59) U/L ALT 25 (0-50) U/L Alkaline Phosphatase 141 H (38-126) U/L Troponin I (0.000-0.034) ng/mL NT-Pro-B Natriuret Pep 4510 H (0-900) pg/mL Serum Total Protein 7.8 (6.3-8.2) g/dL Albumin 4.4 (3.5-5.0) g/dL - Progress Progress: improved, re-examined Air Movement: good Progress Note: 07/12/18 23:[address] jung regarding this pt of dr. galdamez. i reviewed pt hx, condition, lab, ekg and xray findings with her. she feels pt should be transferred to site where his telecommunications operator is. i spoke with pt. pt wants to sign out ama. pt does not wish to be transferred. pt will sign an ama form. i reviewed risks, benefits and alternatives to transfer versus going home. he is aware his sx may worsen and he could . he states he understands and wishes to go home. 07/12/18 23:57 pt states he sees his telecommunications operator next week. Blood Culture(s) Obtained: No Antibiotics given: No Discussed with : Parris Counseled pt/family regarding: lab results, diagnosis, need for follow-up, rad results - Departure Departure Disposition: AMA Clinical Impression: Dyspnea, CHF (congestive heart failure), COPD exacerbation, Anxiety, Hypoxia Condition: Fair Critical Care Time: Yes Critical Care Time(excluding separately billable procedures): 30-74 minutes Referrals: BELKYS GALDAMEZ [Primary Care Provider] - Instructions: Heart Failure, Chronic Obstructive Pulmonary Disease Additional Instructions: return to ED if symptoms worsen. keep your appointment with your telecommunications operator next week. take your medications as prescribed. Prescriptions: Hydrocodone Bit/Acetaminophen [Hydrocodone-Acetaminophen Soln] 10 ml PO Q6H # 120 ml Prednisone 10 mg [Deltasone 10 mg] 10 mg PO TID #12 tablet
[2018-07-12] MEDS ORDERED: Ativan 2 MG/1 ML VIAL ONE (21:22)
[2018-07-12] MEDS ORDERED: HYDROCODONE-ACETAMIN 2.5-108/5 ML SOLUTION ONE (21:22)
[2018-07-12 21:26] LABS: INR 1.3 (0.8-3.0); PROTIME 15.2 SECONDS (8.83-12.87)
[2018-07-12 21:27] LABS: Mean Corpuscular Hemoglobin 32.2 pg (26-32)
[2018-07-12 21:31] LABS: A-aADO2 161; ABG HEMOGLOBIN 13.3; ABG POTASSIUM 3.9 (3.5-5.1); ARTERIAL BLD GAS O2 SATURATION 88.8 % (95-100); ARTERIAL BLOOD GAS BASE EXCESS -2.3 (-2.0-2.0); ARTERIAL BLOOD GAS FIO2 36 %; ARTERIAL BLOOD GAS PCO2 38 mmHg (35-45); ARTERIAL BLOOD GAS pH 7.38 (7.35-7.45); CARBOXYHEMOGLOBIN 4.9 % THgb (0.0-6.9); HCO3- 22.5 (22-28); HGB O2 SAT 83.9 g/dF (94-100); Methhemoglobin 0.6 % (1.4-1.5); paO2 pAO1 0.23
[2018-07-12 21:32] LABS: ARTERIAL BLOOD GAS PO2 48 mmHg (75-100)
[2018-07-12 21:33] LABS: ABG SITE LEFT RADIAL; ALLEN TEST OK? YES
[2018-07-12 21:39] LABS: ALBUMIN 4.4 g/dL (3.5-5.0); ANION GAP 18.2 MEQ/L (5-15); BILIRUBIN,TOTAL 0.7 mg/dL (0.2-1.3); Calcium 8.9 mg/dL (8.4-10.2); Creatinine 1 1.65 mg/dL (0.66-1.25); Total Protein 7.8 g/dL (6.3-8.2)
[2018-07-12] MEDS ORDERED: Lasix 40 MG/4 ML IV ONE (22:02)
[2018-07-12] MEDS ORDERED: Lasix 40 MG/4 ML ONE (22:34)
[2018-07-13 00:14] VITALS: BP 89/56; PULSE 86; O2SAT 98
--- NOTE | 2018-07-13 07:52 | XRAY ---
Indication: Cough and short of breath. Comparison: Taken earlier in the day. Portable chest demonstrates stable mild right base interstitial alveolar opacity with new focus left midlung and new tiny right effusion. Remaining heart and lungs unremarkable.
== END 2018-07-13 00:35 | disposition left against medical advice (07) ==
LOC: ED 20:58
DX: R06.00 Dyspnea, unspecified (principal); I50.9 Heart failure, unspecified; J44.9 Chronic obstructive pulmonary disease, unspecified; F41.9 Anxiety disorder, unspecified; R09.02 Hypoxemia
CPT/HCPCS: 36000; 36415; 36600; 71045; 80053; 81001; 82375; 82803; 83880; 84484; 85025; 85610; 93005; 93041; 94002; 94640; 96360; 96374; 96375; 99284; J1940; J2060; A9270-GY

== ENCOUNTER 2018-07-21 16:54 | Observation (INO) | payer MEDICARE ==
[2018-07-21] MEDS ORDERED: BABY ASPIRIN 81 MG CHEW PO ONE (16:58)
--- NOTE | 2018-07-21 17:02 | ERPHSYRPT ---
- History of Present Illness Time Seen by Provider: 07/21/18 17:00 Historian: patient Exam Limitations: no limitations Physician History: mild to mod off and on anterior chest pain today since 9am, nonrad, no injury, hx AK and stents, +short of breath Aspirin Treatment Today: provided by ED (but pt refused) Allergies/Adverse Reactions: No Known Drug Allergies Allergy (Verified 07/21/18 17:12) Home Medications: Atorvastatin Calcium [Lipitor] 80 mg PO DAILY 04/22/18 [History] Carvedilol 3.125 mg [Coreg 3.125 MG] 1.562 mg PO BID 04/22/18 [History] Famotidine 20 mg PO DAILY 04/22/18 [History] Trazodone HCl 150 mg PO DAILY PRN 04/22/18 [History] Albuterol 8 gm Mdi Hfa [Ventolin Hfa MDI] 90 mcg IH Q4HPRN PRN 06/25/18 [ History] Alprazolam 0.25 mg [xanAX 0.25 MG] 0.125 mg PO BID 06/25/18 [History] Amiodarone HCl 200 mg [Cordarone 200 MG] 200 mg PO DAILY 06/25/18 [History ] Apixaban [Eliquis] 5 mg PO BID 06/25/18 [History] Bumetanide 1 mg [Bumex 1 mg] 1 mg PO BID 06/25/18 [History] Clopidogrel Bisulfate 75 mg [PLAVIX 75 MG Tablet] 75 mg PO DAILY 06/25/18 [History] Ipratropium/Albuterol Sulfate [Iprat-Albut 0.5-3(2.5) mg/3 ml] 3 ml IH QIDPRN PRN 06/25/18 [History] Multivitamin W-Minerals/Lutein [Centrum Silver Tablet] 1 each PO HS 06/25/18 [ History] Sacubitril/Valsartan [Entresto 24 mg-26 mg Tablet] 0.5 each PO BID 06/25/18 [ History] Spironolactone 25 mg [Aldactone 25 MG] 12.5 mg PO 1700 06/25/18 [History] Hx Tetanus, Diphtheria Vaccination/Date Given: Yes Hx Influenza Vaccination/Date Given: Yes Hx Pneumococcal Vaccination/Date Given: Yes - Review of Systems Constitutional: No Fever Eyes: No Vision Changes Ears, Nose, & Throat: No Mouth Pain Respiratory: Dyspnea Cardiac: Chest Pain Abdominal/Gastrointestinal: No Abdominal Pain Genitourinary Symptoms: No Dysuria Musculoskeletal: No Back Pain Skin: No Rash Neurological: No Dizziness - Past Medical History Pertinent Past Medical History: Yes Neurological History: No Pertinent History ENT History: No Pertinent History Cardiac History: Congestive Heart Failure, Coronary Artery Disease, Myocardial Infarction ([place]) Respiratory History: Asthma, CHF, COPD, Pneumonia Endocrine Medical History: No Pertinent History Musculoskeletal History: No Pertinent History GI Medical History: No Pertinent History History: No Pertinent History Psycho-Social History: No Pertinent History Male Reproductive Disorders: No Pertinent History Other Medical History: [facility] since february for chf - Past Surgical History Past Surgical History: Yes Neuro Surgical History: No Pertinent History Cardiac: Cardiac Stent Respiratory: No Pertinent History Gastrointestinal: Appendectomy, Hernia Repair Genitourinary: No Pertinent History Musculoskeletal: No Pertinent History Male Surgical History: No Pertinent History Other Surgical History: back surgery (lumbar disc replacements); currently has hernia that needs repair - Social History Smoking Status: Former smoker How long have you smoked: 50 yr Exposure to second hand smoke: No Drug Use: none Patient Lives Alone: Yes - Nursing Vital Signs Nursing Vital Signs: Initial Vital Signs Temperature 98.4 F 07/21/18 17:00 Pulse Rate 84 07/21/18 17:00 Blood Pressure 112/66 07/21/18 17:00 O2 Sat by Pulse Oximetry 97 07/21/18 17:00 Pain Scale Pain Intensity 4 - Physical Exam General Appearance: no apparent distress Eye Exam: eyes nml inspection Ears, Nose, Throat Exam: moist mucous membranes Neck Exam: normal inspection Respiratory Exam: normal breath sounds Cardiovascular Exam: regular rate/rhythm Gastrointestinal/Abdomen Exam: soft, No tenderness Back Exam: normal range of motion Extremity Exam: normal inspection Neurologic Exam: alert, oriented x 3, cooperative Skin Exam: normal color, warm, dry - Course Nursing assessment & vital signs reviewed: Yes EKG Interpreted by Me: Sinus Rhythm, Other (no stemi, new lateral t wave abnormal compared to 06/2018) Ordered Tests: Active Orders 24 hr Category Date Time Status Outreach Clinician STAT Care 07/21/18 16:58 Active EKG-ER Only STAT Care 07/21/18 16:58 Active IV Insertion STAT Care 07/21/18 16:58 Active Oxygen-ED Only Nasal Cannula 2 lpm Care 07/21/18 17:22 Active CHEST 1 VIEW (PORTABLE) Stat Exams 07/21/18 16:58 Taken CBC W DIFF Stat Lab 07/21/18 17:11 Completed CMP Stat Lab 07/21/18 17:11 Completed D-DIMER QUANTITATION Stat Lab 07/21/18 17:11 Completed Lactic Acid Stat Lab 07/21/18 17:56 Completed PROTIME WITH INR Stat Lab 07/21/18 17:11 Completed TROPONIN Q3H Lab 07/21/18 17:11 Completed TROPONIN Q3H Lab 07/21/18 20:00 Ordered TROPONIN Q3H Lab 07/21/18 23:00 Ordered TROPONIN Q3H Lab 07/22/18 02:00 Ordered TROPONIN Q3H Lab 07/22/18 05:00 Ordered Transfer Order Routine Transfer 07/21/18 Ordered Medication Summary Generic Name Dose Route Start Last Admin Trade Name Freq PRN Reason Stop Dose Admin Sodium Chloride 1,000 mls @ 999 mls/hr 07/21/18 17:56 07/21/18 18:00 Sodium Chloride 0.9% 1000 Ml IV 07/21/18 18:56 999 mls/hr .Q1H1M STA Administration Discontinued Medications Generic Name Dose Route Start Last Admin Trade Name Freq PRN Reason Stop Dose Admin Aspirin 324 mg 07/21/18 16:58 07/21/18 17:12 Baby Aspirin 81 Mg Chew PO 07/21/18 16:59 Not Given STAT ONE Aspirin Confirm 07/21/18 17:07 Baby Aspirin 81 Mg Chew Administered 07/21/18 17:08 Dose 324 mg .ROUTE .STK-MED ONE Sodium Chloride Confirm 07/21/18 17:57 Sodium Chloride 0.9% 1000 Ml Administered 07/21/18 17:58 Dose 1,000 mls @ ud .ROUTE .STK-MED ONE Morphine Sulfate 2 mg 07/21/18 17:03 07/21/18 17:12 Morphine Sulfate 2 Mg Inj IV 07/21/18 17:04 2 mg STAT ONE Administration Morphine Sulfate Confirm 07/21/18 17:07 Morphine Sulfate 2 Mg Inj Administered 07/21/18 17:08 Dose 2 mg .ROUTE .STK-MED ONE Lab/Rad Data: Laboratory Result Diagrams 07/21/18 17:11 07/21/18 17:11 Laboratory Results 07/21/18 07/21/18 07/21/18 Range/Units 17:56 17:11 17:11 WBC (4.0-10.5) K/mm3 RBC (4.1-5.6) M/mm3 Hgb (12.5-18.0) gm/dl Hct (42-50) % MCV (78-100) fl MCH (26-32) pg MCHC (32-36) g/dl RDW (11.5-14.0) % Plt Count (150-450) K/mm3 MPV (6-9.5) fl Gran % (36.0-66.0) % Eos # (Auto) (0-0.5) Absolute Lymphs (auto) (1.0-4.6) Absolute Monos (auto) (0.0-1.3) Lymphocytes % (24.0-44.0) % Monocytes % (0.0-12.0) % Eosinophils % (0.00-5.0) % Basophils % (0.0-0.4) % Absolute Granulocytes (1.4-6.9) Basophils # (0-0.4) PT 19.8 H (8.83-12.87) SECONDS INR 1.69 (0.8-3.0) D-Dimer 497 (215-500) ng/mL Sodium (137-145) mmol/L Potassium (3.5-5.1) mmol/L Chloride (98-107) mmol/L Carbon Dioxide (22-30) mmol/L Anion Gap (5-15) MEQ/L BUN (9-20) mg/dL Creatinine (0.66-1.25) mg/dL Estimated GFR ML/MIN Glucose (74-106) mg/dL Lactic Acid 1.5 (0.4-2.0) Calcium (8.4-10.2) mg/dL Total Bilirubin (0.2-1.3) mg/dL AST (17-59) U/L ALT (0-50) U/L Alkaline Phosphatase (38-126) U/L Troponin I 0.026 (0.000-0.034) ng/mL Serum Total Protein (6.3-8.2) g/dL Albumin (3.5-5.0) g/dL 07/21/18 07/21/18 Range/Units 17:11 17:11 WBC 9.8 (4.0-10.5) K/mm3 RBC 3.47 L (4.1-5.6) M/mm3 Hgb 11.3 L (12.5-18.0) gm/dl Hct 34.7 L (42-50) % MCV 100.0 (78-100) fl MCH 32.5 H (26-32) pg MCHC 32.6 (32-36) g/dl RDW 15.7 H (11.5-14.0) % Plt Count 254 (150-450) K/mm3 MPV 9.2 (6-9.5) fl Gran % 75.2 H (36.0-66.0) % Eos # (Auto) 0.25 (0-0.5) Absolute Lymphs (auto) 0.72 L (1.0-4.6) Absolute Monos (auto) 1.43 H (0.0-1.3) Lymphocytes % 7.4 L (24.0-44.0) % Monocytes % 14.6 H (0.0-12.0) % Eosinophils % 2.6 (0.00-5.0) % Basophils % 0.2 (0.0-0.4) % Absolute Granulocytes 7.37 H (1.4-6.9) Basophils # 0.02 (0-0.4) PT (8.83-12.87) SECONDS INR (0.8-3.0) D-Dimer (215-500) ng/mL Sodium 137 (137-145) mmol/L Potassium 3.4 L (3.5-5.1) mmol/L Chloride 97 L (98-107) mmol/L Carbon Dioxide 28 (22-30) mmol/L Anion Gap 16.0 H (5-15) MEQ/L BUN 16 (9-20) mg/dL Creatinine 1.48 H (0.66-1.25) mg/dL Estimated GFR 49.2 ML/MIN Glucose 119 H (74-106) mg/dL Lactic Acid (0.4-2.0) Calcium 9.0 (8.4-10.2) mg/dL Total Bilirubin 1.20 (0.2-1.3) mg/dL AST 29 (17-59) U/L ALT 21 (0-50) U/L Alkaline Phosphatase 115 (38-126) U/L Troponin I (0.000-0.034) ng/mL Serum Total Protein 7.3 (6.3-8.2) g/dL Albumin 4.1 (3.5-5.0) g/dL - Progress Progress: improved Air Movement: good Progress Note: admit dw Dr Jones 07/21/18 18:[address] López at 19:00 to view cxr 07/21/18 18:38 07/21/18 18:51 - Departure Departure Disposition: Observation Clinical Impression: Chest pain Qualifiers: Chest pain type: unspecified Qualified Code(s): R07.9 - Chest pain, unspecified Condition: Stable Critical Care Time: No Referrals: BELKYS JONES [Primary Care Provider] -
[2018-07-21] MEDS ORDERED: MORPHINE SULFATE 2 MG INJ IV ONE (17:03)
[2018-07-21] MEDS ORDERED: BABY ASPIRIN 81 MG CHEW ONE (17:07)
[2018-07-21] MEDS ORDERED: MORPHINE SULFATE 2 MG INJ ONE (17:07)
[2018-07-21 17:14] LABS: BASOPHIL % 0.2 % (0.0-0.4); Basophil (Absolute #) 0.02 (0-0.4); Eosinophil % 2.6 % (0.00-5.0); Eosinophil (Absolute #) 0.25 (0-0.5); Granulocyte Absolute (ANC) 7.37 (1.4-6.9); Granulocytes % 75.2 % (36.0-66.0); Hematocrit 34.7 % (42-50); Hemoglobin 11.3 gm/dl (12.5-18.0); Lymphocyte (Absolute #) 0.72 (1.0-4.6); Lymphocytes % 7.4 % (24.0-44.0); Mean Corpuscular Hgb Concent. 32.6 g/dl (32-36); Mean Platelet Volume 9.2 fl (6-9.5); Monocyte (Absolute #) 1.43 (0.0-1.3); Monocytes % 14.6 % (0.0-12.0); Platelet Count 254 K/mm3 (150-450); Red Blood Count 3.47 M/mm3 (4.1-5.6); Red Cell Distribution Width 15.7 % (11.5-14.0); White Blood Count 9.8 K/mm3 (4.0-10.5)
[2018-07-21 17:15] LABS: Mean Corpuscular Hemoglobin 32.5 pg (26-32)
[2018-07-21 17:22] LABS: INR 1.69 (0.8-3.0); PROTIME 19.8 SECONDS (8.83-12.87)
[2018-07-21 17:26] LABS: ALBUMIN 4.1 g/dL (3.5-5.0); BILIRUBIN,TOTAL 1.2 mg/dL (0.2-1.3); Creatinine 1 1.48 mg/dL (0.66-1.25); Potassium 3.4 mmol/L (3.5-5.1); Total Protein 7.3 g/dL (6.3-8.2)
[2018-07-21] MEDS ORDERED: Sodium Chloride 0.9% 1000 ML 1,000 ML IV STA (17:56)
[2018-07-21] MEDS ORDERED: Sodium Chloride 0.9% 1000 ML 1,000 ML ONE (17:57)
[2018-07-21] MEDS ORDERED: TYLENOL 325 MG PO PRN (19:30)
[2018-07-21] MEDS ORDERED: Nitrostat 0.4 MG Tablet SL PRN (19:30)
[2018-07-21] MEDS ORDERED: Zofran 4 MG/2 ML VIAL IV PRN (19:30)
[2018-07-21] MEDS ORDERED: MAALOX ES 30 ML UNIT DOSE PO PRN (19:30)
[2018-07-21] MEDS ORDERED: Senokot-S Tablet PO PRN (19:30)
[2018-07-21] MEDS ORDERED: MILK OF MAGNESIA 30 ML PO PRN (19:30)
[2018-07-21] MEDS ORDERED: DUONEB 0.5-3 MG/3 ml Neb IH ONE (19:33)
[2018-07-21] MEDS: DUONEB 0.5-3 MG/3 ml Neb IH SCH (19:37)
[2018-07-22] MEDS ORDERED: Coreg 3.125 MG PO SCH ×2 (00:05→10:00)
[2018-07-22] MEDS: ELIQUIS 2.5 MG TABLET PO SCH ×2 (00:27→09:27)
[2018-07-22] MEDS: BUMEX 1 MG PO SCH ×2 (00:50→09:26)
[2018-07-22] MEDS: xanAX 0.25 MG PO SCH ×2 (05:53→09:28)
[2018-07-22 06:15] LABS: Risk Ratio 2.2
[2018-07-22] MEDS: DUONEB 0.5-3 MG/3 ml Neb IH SCH (07:01)
[2018-07-22] MEDS ORDERED: NON-FORMULARY ITEM (Trazodone Hcl [Trazodone Hcl] 150 MG) PO PRN (07:42)
[2018-07-22] MEDS ORDERED: Ventolin Hfa MDI IH PRN (07:42)
[2018-07-22] MEDS ORDERED: DUONEB 0.5-3 MG/3 ml Neb IH PRN (07:42)
[2018-07-22] MEDS ORDERED: Desyrel 150 MG PO PRN (07:51)
[2018-07-22] MEDS ORDERED: PROVENTIL COMMON CANISTER IH PRN (07:52)
--- NOTE | 2018-07-22 08:42 | XRAY ---
Indication: Chest pain. Comparison: July 12, 2018. Portable chest demonstrates new right base infiltrate/atelectasis with small effusion. Remaining heart and left lung unremarkable. Comment: Right lung findings not reported by the interpreting ER clinician. Telephone report given to Dr. Alejo at 0833 hours on July 21, 2018.
--- NOTE | 2018-07-22 09:50 | PCM.DCORD ---
- Discharge Discharge Date: 07/22/18 Disposition: Home, Self-Care Condition: Stable Prescriptions: Continue Trazodone HCl 150 mg PO DAILY PRN PRN Reason: Insomnia Famotidine 20 mg PO DAILY Carvedilol 3.125 mg [Coreg 3.125 MG] 1.562 mg PO BID Atorvastatin Calcium [Lipitor] 80 mg PO DAILY Clopidogrel Bisulfate 75 mg [PLAVIX 75 MG Tablet] 75 mg PO DAILY Amiodarone HCl 200 mg [Cordarone 200 MG] 200 mg PO DAILY Apixaban [Eliquis] 5 mg PO BID Albuterol 8 gm Mdi Hfa [Ventolin Hfa MDI] 90 mcg IH Q4HPRN PRN PRN Reason: Shortness Of Breath Spironolactone 25 mg [Aldactone 25 MG] 12.5 mg PO 1700 Ipratropium/Albuterol Sulfate [Iprat-Albut 0.5-3(2.5) mg/3 ml] 3 ml IH QIDPRN PRN PRN Reason: Shortness Of Breath/Wheezing Sacubitril/Valsartan [Entresto 24 mg-26 mg Tablet] 0.5 each PO BID Multivitamin W-Minerals/Lutein [Centrum Silver Tablet] 1 each PO HS Bumetanide 1 mg [Bumex 1 mg] 1 mg PO BID Alprazolam 0.25 mg [xanAX 0.25 MG] 0.125 mg PO BID Additional Instructions: If chest pain comes back take home nitro immediately Follow up with: BELKYS BERRY [Primary Care Provider] - 07/29/18 9:15 am OBDULIA MORA [CONSULTING PHYSICIAN] - 07/23/18 12:30 pm (at [facility])
[2018-07-22] MEDS ORDERED: NON-FORMULARY ITEM (Atorvastatin Calcium [Lipitor] 80 MG) PO SCH (10:00)
[2018-07-22] MEDS ORDERED: ZOCOR 20MG PO SCH (10:00)
[2018-07-22] MEDS ORDERED: Cordarone 200 MG PO SCH (10:00)
[2018-07-22] MEDS ORDERED: Ecotrin 325 MG PO SCH (10:00)
[2018-07-22] MEDS ORDERED: THERAGRAN MULTIVITAMIN PO SCH (10:00)
[2018-07-22] MEDS ORDERED: Pepcid 20 MG PO SCH (10:00)
[2018-07-22] MEDS ORDERED: PLAVIX 75 MG Tablet PO SCH (10:00)
[2018-07-22] MEDS ORDERED: ENTRESTO 49 MG-51 MG TABLET PO SCH (10:00)
[2018-07-22 12:13] VITALS: BP 91/58; PULSE 90; O2SAT 100
[2018-07-22] MEDS ORDERED: Aldactone 25 MG PO SCH (17:00)
[2018-07-22] MEDS ORDERED: NON-FORMULARY ITEM (Multivitamin W-Minerals/Lutein [Centrum Silver Tablet] 1 EACH) PO SCH (22:00)
--- NOTE | 2018-07-30 08:43 | SSS ---
DISCHARGE DIAGNOSES: 1) CHEST PAIN. 2) HISTORY OF CORONARY ARTERY DISEASE. HISTORY: The patient is a 73 year-old white male who reports he had been having intermittent chest pain on the morning of 07/21/2018. He presented to the emergency room at 1700 hours. The patient was evaluated in the emergency room and on evaluation found him to be chest pain free at the time of the evaluation. His laboratory studies revealed him to be negative for troponins initially but he was felt the need to be admitted for serial troponins and observation for the chest pain. He was therefore admitted to the hospital for further evaluation and management. PAST MEDICAL/SURGICAL HISTORY: Otherwise significant for previous myocardial infarction and coronary artery disease, congestive heart failure. Also he has chronic obstructive pulmonary disease. He has previously had appendectomy and back surgery, cardiac stent placed. MEDICATIONS: Atorvastatin 80 mg a day, carvedilol 3.125 mg one half tablet b.i.d., famotidine 20 mg a day, trazodone 150 mg at night, Ventolin on a PRN basis, Alprazolam 0.25 mg PRN anxiety, Eliquis 5 mg b.i.d., Bumex 1 mg b.i.d., Plavix 75 mg a day, Combivent inhaler and Entresto daily, Spironolactone 12.5 mg daily. ALLERGIES: NKDA. PHYSICAL EXAMINATION: Revealed an elderly white male patient in no obvious distress. HEENT: Normocephalic, atraumatic. Pupils equal round reactive to light. Extraocular movements intact. Oropharynx is pink and moist. His vital signs on admission showed temperature 98.4F, pulse 84, blood pressure 112/66. O2 saturation 97%. NECK: Supple without lymphadenopathy, thyromegaly or JVD. CHEST: Clear to auscultation. HEART: Regular rate and rhythm without murmurs, rubs or gallops. ABDOMEN: Soft. No palpable masses. EXTREMITIES: Without cyanosis, clubbing or edema. NEUROLOGIC: The patient is alert and oriented x3. HOSPITAL COURSE: The patient was admitted to the medicine liu. He was chest pain free throughout his stay. He did have serial troponins done all which were all less than 0.012. His creatinine was slightly elevated at 1.48. The patient was felt to be ready for discharge home by the next morning. He remained chest pain free. 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 He is also asked to return to the emergency room in the interim if he has further episodes of chest pain not controlled by sublingual nitroglycerin and aspirin.
== END 2018-07-22 12:50 | disposition home or self-care (01) ==
LOC: ED 16:54 → MED SURG 19:05
PROVIDERS: ADMIT Family Medicine; ATTEND Family Medicine
DX: R07.9 Chest pain, unspecified (principal); J44.9 Chronic obstructive pulmonary disease, unspecified; Z79.01 Long term (current) use of anticoagulants; Z79.899 Other long term (current) drug therapy; Z86.79 Personal history of other diseases of the circulatory system
CPT/HCPCS: 36000; 36415; 71045; 80053; 80061; 83605; 83721; 84484; 85025; 85379; 85610; 93005; 93041; 93268; 94150; 94640; 94760; 96360; 96374; 99285; G0378; J2270; A9270-GY

== ENCOUNTER 2018-08-05 11:29 | Emergency (ER) | payer MEDICARE ==
[2018-08-05] MEDS ORDERED: Sodium Chloride 0.9% 1000 ML 1,000 ML IV STA (11:52)
--- NOTE | 2018-08-05 11:58 | ERPHSYRPT ---
- History of Present Illness Time Seen by Provider: 08/05/18 11:54 Source: patient Exam Limitations: no limitations Physician History: 73-year-old white male with history of congestive heart failure coronary artery disease myocardial infarction asthma COPD pneumonia Patient is said to the emergency room after having abnormal laboratory values which show a BUN of 72 and a creatinine of 4.9 a this morning. Patient reported for routine labs he states he's been short of breath he is not having chest pain. He has no fevers. He does state she's been having some leg pain. Patient chronically runs a systolic blood pressure between 70 and 80. Past medical history includes congestive heart failure, coronary artery disease , myocardial infarction, asthma, COPD, pneumonia Past surgical history includes appendectomy, hernia repair, back surgery ( lumbar disc), patient with a hernia that needs repair Timing/Duration: today Severity: moderate Modifying Factors: Improves With: nothing Associated Symptoms: shortness of breath, other (bilateral leg pain), No nausea , No vomiting, No abdominal pain, No heartburn, No diaphoresis, No cough, No chills, No chest pain, No fever, No headaches, No loss of appetite, No malaise, No rash, No syncope, No seizure, No weakness Allergies/Adverse Reactions: No Known Drug Allergies Allergy (Verified 07/21/18 17:12) Home Medications: Atorvastatin Calcium [Lipitor] 80 mg PO DAILY 04/22/18 [History] Carvedilol 3.125 mg [Coreg 3.125 MG] 1.562 mg PO BID 04/22/18 [History] Famotidine 20 mg PO DAILY 04/22/18 [History] Trazodone HCl 150 mg PO DAILY PRN 04/22/18 [History] Albuterol 8 gm Mdi Hfa [Ventolin Hfa MDI] 90 mcg IH Q4HPRN PRN 06/25/18 [ History] Alprazolam 0.25 mg [xanAX 0.25 MG] 0.125 mg PO BID 06/25/18 [History] Amiodarone HCl 200 mg [Cordarone 200 MG] 200 mg PO DAILY 06/25/18 [History ] Apixaban [Eliquis] 5 mg PO BID 06/25/18 [History] Bumetanide 1 mg [Bumex 1 mg] 1 mg PO BID 06/25/18 [History] Clopidogrel Bisulfate 75 mg [PLAVIX 75 MG Tablet] 75 mg PO DAILY 06/25/18 [History] Ipratropium/Albuterol Sulfate [Iprat-Albut 0.5-3(2.5) mg/3 ml] 3 ml IH QIDPRN PRN 06/25/18 [History] Multivitamin W-Minerals/Lutein [Centrum Silver Tablet] 1 each PO HS 06/25/18 [ History] Sacubitril/Valsartan [Entresto 24 mg-26 mg Tablet] 0.5 each PO BID 06/25/18 [ History] Spironolactone 25 mg [Aldactone 25 MG] 12.5 mg PO 1700 06/25/18 [History] Hx Tetanus, Diphtheria Vaccination/Date Given: Yes Hx Influenza Vaccination/Date Given: Yes Hx Pneumococcal Vaccination/Date Given: Yes - Review of Systems Constitutional: No Fever, No Chills Eyes: No Symptoms Ears, Nose, & Throat: No Symptoms Respiratory: Dyspnea, Stridor, No Cough, No Cyanosis, No Dyspnea on Exertion ( FOSTER), No Wheezing Cardiac: No Chest Pain, No Edema, No Syncope Abdominal/Gastrointestinal: No Abdominal Pain, No Nausea, No Vomiting, No Diarrhea Genitourinary Symptoms: No Dysuria Musculoskeletal: Other (bilateral leg pain) Skin: No Rash Neurological: No Dizziness, No Focal Weakness, No Sensory Changes Psychological: No Symptoms Endocrine: No Symptoms All Other Systems: Reviewed and Negative - Past Medical History Pertinent Past Medical History: Yes Neurological History: No Pertinent History ENT History: No Pertinent History Cardiac History: Congestive Heart Failure, Coronary Artery Disease, Myocardial Infarction (NM) Respiratory History: Asthma, CHF, COPD, Pneumonia Endocrine Medical History: No Pertinent History Musculoskeletal History: No Pertinent History GI Medical History: No Pertinent History History: No Pertinent History Psycho-Social History: No Pertinent History Male Reproductive Disorders: No Pertinent History Other Medical History: multiple admission for CHF - Past Surgical History Past Surgical History: Yes Neuro Surgical History: No Pertinent History Cardiac: Cardiac Stent Respiratory: No Pertinent History Gastrointestinal: Appendectomy, Hernia Repair Genitourinary: No Pertinent History Musculoskeletal: No Pertinent History Male Surgical History: No Pertinent History Other Surgical History: back surge; currently has hernia - Social History Smoking Status: Former smoker How long have you smoked: 50 yr Exposure to second hand smoke: No Drug Use: none Patient Lives Alone: Yes - Nursing Vital Signs Nursing Vital Signs: Initial Vital Signs Temperature 95.1 F 08/05/18 11:30 Pulse Rate 59 L 08/05/18 11:30 Respiratory Rate 18 08/05/18 11:30 Blood Pressure 59/40 08/05/18 11:30 O2 Sat by Pulse Oximetry 87 L 08/05/18 11:30 Pain Scale Pain Intensity 0 - Physical Exam General Appearance: mild distress, alert Eye Exam: PERRL/EOMI, eyes nml inspection Ears, Nose, Throat Exam: normal ENT inspection, TMs normal, pharynx normal, moist mucous membranes Neck Exam: normal inspection, non-tender, supple, full range of motion Respiratory Exam: diminished breath sounds Cardiovascular Exam: regular rate/rhythm, normal heart sounds, normal peripheral pulses, capillary refill <2 sec Gastrointestinal/Abdomen Exam: soft, normal bowel sounds, No tenderness, No mass Back Exam: normal inspection, normal range of motion, No CVA tenderness, No vertebral tenderness Extremity Exam: normal inspection, normal range of motion, pelvis stable Neurologic Exam: alert, oriented x 3, cooperative, tin dipper II-XII nml as tested, normal mood/affect, nml cerebellar function, nml station & gait, sensation nml, No motor deficits Skin Exam: normal color, warm, dry, No rash Lymphatic Exam: No adenopathy SpO2 Interpretation: normal - Course Nursing assessment & vital signs reviewed: Yes EKG Interpreted by Me: RATE (55 bpm), Sinus Charles, Left [place] Deviation, Other ( EKG: Sinus bradycardia, 55 beats per minute, left axis deviation, no acute ST or T wave changes noted) - Radiology Exams Chest X-ray Interpretation: Discussed w/ radiologist (chest x-ray: Impression 1. Bibasilar airspace disease with small bilateral pleural effusions, right greater than left. This represents a worsening as compared to July 21, 2018 particularly at the left lung base. Left lower lobe pneumonia cannot be excluded. In addition, because of the heart size at the upper limits of normal in the presence of small by basilar pleural effusions, an element of fluid volume overload or mild chronic CHF must be considered as well.) Ordered Tests: Active Orders 24 hr Category Date Time Status Sewer Maintenance Supervisor STAT Care 08/05/18 11:52 Active EKG-ER Only STAT Care 08/05/18 11:52 Active IV Insertion STAT Care 08/05/18 11:52 Active Pulse Oximetry (ED) STAT Care 08/05/18 11:52 Active CHEST 1 VIEW (PORTABLE) Stat Exams 08/05/18 11:52 Completed BLOOD CULTURE Stat Lab 08/05/18 12:08 Received CBC W DIFF Stat Lab 08/05/18 12:05 Completed Lactic Acid Stat Lab 08/05/18 12:32 Results NT PRO BNP Stat Lab 08/05/18 12:05 Completed TROPONIN Q3H Lab 08/05/18 12:05 Completed TROPONIN Q3H Lab 08/05/18 15:00 Ordered TROPONIN Q3H Lab 08/05/18 18:00 Ordered TROPONIN Q3H Lab 08/05/18 21:00 Ordered TROPONIN Q3H Lab 08/06/18 00:00 Ordered UA W/RFX UR CULTURE Stat Lab 08/05/18 12:55 Uncollected VENOUS BLOOD GAS Stat Lab 08/05/18 12:00 Completed VENOUS BLOOD GAS Stat Lab 08/05/18 12:32 Results Medication Summary Generic Name Dose Route Start Last Admin Trade Name Freq PRN Reason Stop Dose Admin Ceftriaxone Sodium/Dextrose 1 g in 50 mls @ 100 mls/hr 08/05/18 13:00 13:19 Rocephin 1 Gm-D5w 50 Ml Bag IV 08/05/18 13:29 100 mls/hr STAT STA 100 mls/hr Administration Dopamine HCl/Dextrose 250 mls @ 14.203 mls/hr 08/05/18 13:21 Dopamine 400 Mg/D5w 250ml Premix IV 09/04/18 13:20 .[id number] PRN SEVERE HYPOTENSION Protocol 5 MCG/KG/MIN Discontinued Medications Generic Name Dose Route Start Last Admin Trade Name Freq PRN Reason Stop Dose Admin Sodium Chloride 1,000 mls @ 999 mls/hr 08/05/18 11:52 08/05/18 12:31 Sodium Chloride 0.9% 1000 Ml IV 08/05/18 12:52 999 mls/hr .Q1H1M STA Administration Sodium Chloride Confirm 08/05/18 12:20 Sodium Chloride 0.9% 1000 Ml Administered 08/05/18 12:21 Dose 1,000 mls @ ud .ROUTE .STK-MED ONE Ceftriaxone Sodium/Dextrose Confirm 08/05/18 13:19 Rocephin 1 Gm-D5w 50 Ml Bag Administered 08/05/18 13:20 Dose 1 g in 50 mls @ ud IV .STK-MED ONE Lab/Rad Data: Laboratory Result Diagrams 08/05/18 12:05 Laboratory Results 08/05/18 08/05/18 08/05/18 Range/Units 12:32 12:05 12:05 WBC (4.0-10.5) K/mm3 RBC (4.1-5.6) M/mm3 Hgb (12.5-18.0) gm/dl Hct (42-50) % MCV (78-100) fl MCH (26-32) pg MCHC (32-36) g/dl RDW (11.5-14.0) % Plt Count (150-450) K/mm3 MPV (6-9.5) fl Gran % (36.0-66.0) % Eos # (Auto) (0-0.5) Absolute Lymphs (auto) (1.0-4.6) Absolute Monos (auto) (0.0-1.3) Lymphocytes % (24.0-44.0) % Monocytes % (0.0-12.0) % Eosinophils % (0.00-5.0) % Basophils % (0.0-0.4) % Absolute Granulocytes (1.4-6.9) Basophils # (0-0.4) pO2/FiO2 Ratio 28.0 % VBG pH 7.47 H (7.32-7.42) VBG pCO2 at Pat Temp 43 (42-55) mm/Hg VBG pO2 at Pat Temp 22 L (25-40) mm/Hg VBG HCO3 31.3 H* (22-28) meq/L VBG O2 Sat (Wali) 32.3 L (95-100) VBG Base Excess 6.9 H (-2.0-2.0) VBG Hemoglobin 10.2 VBG Carboxyhemoglobin 2.9 (0.0-6.9) % T HGB POC Potassium 3.2 L (3.5-5.1) Lactic Acid 5.6 H (0.4-2.0) Troponin I 0.125 H* (0.000-0.034) ng/mL NT-Pro-B Natriuret Pep 7100 H (0-1800) pg/mL 08/05/18 08/05/18 Range/Units 12:05 12:00 WBC 12.5 H (4.0-10.5) K/mm3 RBC 3.11 L (4.1-5.6) M/mm3 Hgb 9.8 L (12.5-18.0) gm/dl Hct 29.4 L (42-50) % MCV 94.5 (78-100) fl MCH 31.5 (26-32) pg MCHC 33.3 (32-36) g/dl RDW 15.0 H (11.5-14.0) % Plt Count 344 (150-450) K/mm3 MPV 10.1 H (6-9.5) fl Gran % 84.3 H (36.0-66.0) % Eos # (Auto) 0.01 (0-0.5) Absolute Lymphs (auto) 0.64 L (1.0-4.6) Absolute Monos (auto) 1.30 (0.0-1.3) Lymphocytes % 5.1 L (24.0-44.0) % Monocytes % 10.4 (0.0-12.0) % Eosinophils % 0.1 (0.00-5.0) % Basophils % 0.1 (0.0-0.4) % Absolute Granulocytes 10.51 H (1.4-6.9) Basophils # 0.01 (0-0.4) pO2/FiO2 Ratio 28.0 % VBG pH 7.47 H (7.32-7.42) VBG pCO2 at Pat Temp 43 (42-55) mm/Hg VBG pO2 at Pat Temp 22 L (25-40) mm/Hg VBG HCO3 31.3 H* (22-28) meq/L VBG O2 Sat (Wali) 32.3 L (95-100) VBG Base Excess 6.9 H (-2.0-2.0) VBG Hemoglobin 10.2 VBG Carboxyhemoglobin 2.9 (0.0-6.9) % T HGB POC Potassium 3.2 L (3.5-5.1) Lactic Acid (0.4-2.0) Troponin I (0.000-0.034) ng/mL NT-Pro-B Natriuret Pep (0-1800) pg/mL - Progress Progress: improved Progress Note: 08/05/18 13:06 Patient is sent from laboratory with complaint of of abnormal labs patient with elevated BUN and creatinine of 72 and 4.98 on arrival patient with systolic blood pressure in the high 50s he usually runs around 70 he states he has been short of breath he has no pain. Patient is running a temperature of around 95 Patient with white count 12.5 hemoglobin 9.8 hematocrit 29.4 platelets 344 venous gases pH 7.47 PCO2 43 patient's lactate is elevated at 5.6 patient's troponin elevated at 0.128 BNP is 7100 Patient with the EKG remarkable for sinus bradycardia 55 beats per minute left axis deviation no acute ST or T wave changes are noted Patient with a chest x-ray Remarkable for bibasilar airspace disease with small bilateral pleural effusions right larger than left this represents worsening compared to July 21, 2018 particularly in the left lung base left lower lobe pneumonia cannot be excluded.. In addition because of the heart size is upper limits of normal and presence of small bibasilar pleural effusions an element of fluid volume overload or mild chronic CHF must be considered as well the upper and mid zone lungs remain relatively clear bilaterally Patient has been given IV normal saline and 250 mL increments blood pressure is currently around 61 systolic. I have ordered Rocephin 1 g IV on this patient . [facility]. Impression 1 pneumonia 2 hypotension 3 CHF.4. Renal failure I discussed the patient's case with Dr. Hill at [facility]. Will go ahead and start patient on dopamine drip. Dr. Hill has accepted patient for transfer . . 08/05/18 13:22 - Departure Departure Disposition: Transfer (Formerly [facility]) Clinical Impression: Pneumonia Qualifiers: Pneumonia type: due to unspecified organism Laterality: unspecified laterality Lung location: unspecified part of lung Qualified Code(s): J18.9 - Pneumonia, unspecified organism CHF (congestive heart failure) Qualifiers: Heart failure type: unspecified Heart failure chronicity: unspecified Qualified Code(s): I50.9 - Heart failure, unspecified Hypotension Qualifiers: Hypotension type: unspecified hypotension type Qualified Code(s): I95.9 - Hypotension, unspecified Renal failure Qualifiers: Renal failure chronicity: acute Acute renal failure type: unspecified Qualified Code(s): N17.9 - Acute kidney failure, unspecified Condition: Fair Critical Care Time: No Referrals: BELKYS BERRY [Primary Care Provider] - Instructions: Heart Failure
[2018-08-05 12:16] LABS: BASOPHIL % 0.1 % (0.0-0.4); Basophil (Absolute #) 0.01 (0-0.4); Eosinophil % 0.1 % (0.00-5.0); Eosinophil (Absolute #) 0.01 (0-0.5); Granulocyte Absolute (ANC) 10.51 (1.4-6.9); Granulocytes % 84.3 % (36.0-66.0); Hematocrit 29.4 % (42-50); Hemoglobin 9.8 gm/dl (12.5-18.0); Lymphocyte (Absolute #) 0.64 (1.0-4.6); Lymphocytes % 5.1 % (24.0-44.0); Mean Cell Volume 94.5 fl (78-100); Mean Corpuscular Hemoglobin 31.5 pg (26-32); Mean Corpuscular Hgb Concent. 33.3 g/dl (32-36); Mean Platelet Volume 10.1 fl (6-9.5); Monocytes % 10.4 % (0.0-12.0); Platelet Count 344 K/mm3 (150-450); Red Blood Count 3.11 M/mm3 (4.1-5.6); White Blood Count 12.5 K/mm3 (4.0-10.5)
[2018-08-05] MEDS ORDERED: Sodium Chloride 0.9% 1000 ML 1,000 ML ONE (12:20)
--- NOTE | 2018-08-05 12:50 | XRAY ---
Exam: AP upright portable chest film from 08/05/2018. Comparison: [facility] portal chest film from 07/21/2018. Indication: 73-year-old male with shortness of breath. Findings: The transverse heart size appears at the upper limits of normal. There is new airspace disease within the retrocardiac region of the left lung base consistent with infiltrate and/or atelectasis within the left lower lobe. The left hemidiaphragm is now mostly obscured. There is minimal blunting of the left costophrenic angle tip which may be due to a tiny amount of pleural fluid. The remainder of the left lung appears clear. I again see mild airspace opacity consistent with vascular congestion/edema or infiltrate at the right lung base. There is some concomitant mild right basilar pleural effusion which is similar to 07/21/2018 as well. The remainder of the right lung appears clear. There is no pneumothorax. Respiratory tubing overlies the right upper lung field. The bones reveal some diffuse degenerative changes within the thoracic spine. Impression: 1. Bibasilar airspace disease with small bilateral pleural effusions, right larger than left. This represents a worsening as compared to 07/21/2018, particularly at the left lung base. Left lower lobe pneumonia cannot be excluded. In addition, because of the heart size at the upper limits of normal and the presence of small bibasilar pleural effusions, an element of fluid volume overload or mild chronic CHF must be considered as well. 2. The upper and midlung zones remain relatively clear bilaterally.
[2018-08-05 12:58] LABS: Lactic Acid 5.6 (0.4-2.0); VBG BASE EXCESS 6.9 (-2.0-2.0); VBG CARBOXYHEMOGLOBIN 2.9 % T HGB (0.0-6.9); VBG HCO3- 31.3 meq/L (22-28); VBG HEMOGLOBIN 10.2; VBG O2 SATURATION 32.3 (95-100); VBG PCO2 43 mm/Hg (42-55); VBG PO2 22 mm/Hg (25-40); VBG POTASSIUM 3.2 (3.5-5.1); VBG pH 7.47 (7.32-7.42)
[2018-08-05] MEDS ORDERED: ROCEPHIN 1 Gm-D5w 50 ml Bag** 1 G/50 ML IVPB IV STA (13:00)
[2018-08-05] MEDS ORDERED: ROCEPHIN 1 Gm-D5w 50 ml Bag** 1 G/50 ML IVPB IV ONE (13:19)
[2018-08-05] MEDS ORDERED: Dopamine 400 MG/D5W 250ML PREMIX 250 ML IV PRN (13:21)
[2018-08-05] MEDS ORDERED: Dopamine 400 MG/D5W 250ML PREMIX 250 ML IV ONE (13:33)
[2018-08-05 14:03] VITALS: PULSE 73; O2SAT 97
[2018-08-05] MEDS ORDERED: Zofran 4 MG/2 ML VIAL IV ONE (14:06)
[2018-08-05] MEDS ORDERED: Zofran 4 MG/2 ML VIAL ONE (14:07)
[2018-08-05 14:28] VITALS: BP 73/39
== END 2018-08-05 14:35 | disposition short-term general hospital (02) ==
LOC: ED 11:29
DX: J18.9 Pneumonia, unspecified organism (principal); I50.9 Heart failure, unspecified; I95.9 Hypotension, unspecified; N17.9 Acute kidney failure, unspecified; I25.10 Atherosclerotic heart disease of native coronary artery without angina pectoris; I25.2 Old myocardial infarction; M79.605 Pain in left leg; M79.604 Pain in right leg; J45.909 Unspecified asthma, uncomplicated; Z79.899 Other long term (current) drug therapy
CPT/HCPCS: 36415; 71045; 80048; 82805; 83605; 83735; 83880; 84484; 85025; 87040; 93005; 93041; 96360; 96365; 96374; 99285; 99291; J0696; J1265; J2405